=== PATIENT | female | born 1955 | race Caucasian/White ===

== ENCOUNTER 2019-03-28 10:39 | Emergency (ER) | payer OTHER ==
--- NOTE | 2019-03-28 11:49 | ER ---
Nurse's Notes [facility] Name: Queenie He Age: 63 yrs Sex: Female : 1955 Arrival Date: 03/28/2019 Time: 10:42 Bed 17 Private MD: Diagnosis: Metatarsalgia, left foot;Fracture of metatarsal bone(s)-2nd-4th Presentation: 03/28 10:49 Presenting complaint: Sent by [facility] for fracture of 2-4th left toes. Pt report fall hb in shower 3 days ago. Transition of care: patient was not received from another setting of care. Onset of symptoms was March 26, 2019. Risk Assessment: Do you want to hurt yourself or someone else? Patient reports no desire to harm self or others. Initial Sepsis Screen: Does the patient meet any 2 criteria? No. Patient's initial sepsis screen is negative. Does the patient have a suspected source of infection? No. Patient's initial sepsis screen is negative. Care prior to arrival: None. 10:49 Method Of Arrival: Ambulatory hb 10:49 Acuity: OLIVER 4 hb Historical: - Allergies: 10:52 Paxil; hb 10:52 Golytely; hb - Immunization history:: Adult Immunizations up to date. - Social history:: Smoking status: Patient uses tobacco products, smokes one pack cigarettes per day. - Ebola Screening: : No symptoms or risks identified at this time. Screenin:30 Abuse screen: Denies threats or abuse. Nutritional screening: No deficits noted. em Tuberculosis screening: No symptoms or risk factors identified. Fall Risk None identified. Assessment: 11:30 General: Appears in no apparent distress. distressed, Behavior is calm, cooperative. em Pain: Complains of pain in left foot and left fourth toe and left third toe and left second toe Pain currently is 10 out of 10 on a pain scale. Pain began 2-3 days ago. Neuro: Level of Consciousness is awake, alert, obeys commands, Oriented to person, place, time, situation. Cardiovascular: Capillary refill < 3 seconds fingers toes Patient's skin is warm and dry. Respiratory: Airway is patent Respiratory effort is even, unlabored, Respiratory pattern is regular, symmetrical. Derm: Bruising that is dark purple, on left fourth toe and left third toe and left second toe. Musculoskeletal: Swelling absent Reports confirmed fractures on left 2nd, 3rd, 4th toe. 11:30 Reassessment: I agree with assessment completed by Irvin Brooks LVN . aa5 Vital Signs: 10:50 BP 99 / 62; Pulse 102; Resp 16; Temp 97.5; Pulse Ox 99% on R/A; Weight 43.54 kg; Height hb 5 ft. 1 in. (154.94 cm); Pain 10/10; 12:10 BP 106 / 71; Pulse 88; Resp 18; Pulse Ox 99% on R/A; em 10:50 Body Mass Index 18.14 (43.54 kg, 154.94 cm) hb ED Course: 10:42 Patient arrived in ED. as 10:47 Stephani Valdovinos FNP-C [facility]. snw 10:47 Kendall Hardy MD is Attending Physician. snw 10:50 Triage completed. hb 10:50 Arm band placed on. hb 10:53 Irvin Brooks LVN is Primary Nurse. em 11:30 Patient has correct armband on for positive identification. Bed in low position. Call em light in reach. 12:05 Orthoglass splint: Posterior short lleg splint applied on left leg. em 12:13 No provider procedures requiring assistance completed. Patient did not have IV access em during this emergency room visit. Administered Medications: 12:07 Drug: [place] (7.5 mg-325 mg) 1 tabs Route: PO; em 12:30 Follow up: Response: No adverse reaction em Outcome: 11:48 Discharge ordered by MD. snw 12:29 Discharged to home ambulatory. em 12:29 Condition: good 12:29 Discharge instructions given to patient, Instructed on discharge instructions, follow up and referral plans. Demonstrated understanding of instructions, follow-up care, splint care. 12:32 Patient left the ED. em Signatures: Stephani Valdovinos FNP-C TITLE ONE READING TEACHER-Csnw Irvin Brooks LVN LVN em Caryl Luu Audri, RN RN aa5 Gilma Garcia RN RN hb
--- NOTE | 2019-03-28 11:49 | EDPHYS ---
Physician Documentation [facility] Name: Queenie He Age: 63 yrs Sex: Female : 1955 Arrival Date: 03/28/2019 Time: 10:42 Bed 17 Private MD: ED Physician Kendall Hardy HPI: 03/28 12:04 This 63 yrs old Female presents to ER via Ambulatory with complaints of Toe snw Injury. 12:05 The patient presents with decreased range of motion, pain, swelling, tenderness. The snw complaints affect the left foot. Context: The problem was sustained at home, resulted from the patient falling, from a standing position, the patient can partially bear weight, the patient is able to ambulate. Onset: The symptoms/episode began/occurred suddenly, 2 day(s) ago, and became persistent. Associated signs and symptoms: Pertinent positives: swelling. Severity of symptoms: At their worst the symptoms were moderate, severe. It is unknown whether or not the patient has had similar symptoms in the past. The patient has been recently seen by a physician: the patient's primary care provider, in [place], with similar presenting complaints, sent to ED for splint. Historical: - Allergies: 10:52 Paxil; hb 10:52 Golytely; hb - Immunization history:: Adult Immunizations up to date. - Social history:: Smoking status: Patient uses tobacco products, smokes one pack cigarettes per day. - Ebola Screening: : No symptoms or risks identified at this time. ROS: 12:01 Constitutional: Negative for fever, chills, and weight loss, Eyes: Negative for injury, snw pain, redness, and discharge, ENT: Negative for injury, pain, and discharge, Neck: Negative for injury, pain, and swelling, Cardiovascular: Negative for chest pain, palpitations, and edema, Respiratory: Negative for shortness of breath, cough, wheezing, and pleuritic chest pain, Abdomen/GI: Negative for abdominal pain, nausea, vomiting, diarrhea, and constipation, Back: Negative for injury and pain, : Negative for injury, bleeding, discharge, and swelling, Skin: Negative for injury, rash, and discoloration, Neuro: Negative for headache, weakness, numbness, tingling, and seizure, Psych: Negative for depression, anxiety, suicide ideation, homicidal ideation, and hallucinations. 12:01 MS/extremity: Positive for injury or acute deformity, decreased range of motion, pain, swelling, tenderness, of the ball of left foot, dorsum of left foot, left second toe, left third toe and left fourth toe. Exam: 12:01 Head/Face: Normocephalic, atraumatic. snw 12:01 ENT: Nares patent. No nasal discharge, no septal abnormalities noted. Tympanic membranes are normal and external auditory canals are clear. Oropharynx with no redness, swelling, or masses, exudates, or evidence of obstruction, uvula midline. Mucous membranes moist. Neck: Trachea midline, no thyromegaly or masses palpated, and no cervical lymphadenopathy. Supple, full range of motion without nuchal rigidity, or vertebral point tenderness. No Meningismus. Chest/axilla: Normal chest wall appearance and motion. Nontender with no deformity. No lesions are appreciated. Cardiovascular: Regular rate and rhythm with a normal S1 and S2. No gallops, murmurs, or rubs. Normal PMI, no JVD. No pulse deficits. Respiratory: Lungs have equal breath sounds bilaterally, clear to auscultation and percussion. No rales, rhonchi or wheezes noted. No increased work of breathing, no retractions or nasal flaring. Abdomen/GI: Soft, non-tender, with normal bowel sounds. No distension or tympany. No guarding or rebound. No evidence of tenderness throughout. Back: No spinal tenderness. No costovertebral tenderness. Full range of motion. Skin: Warm, dry with normal turgor. Normal color with no rashes, no lesions, and no evidence of cellulitis. MS/ Extremity: Pulses equal, no cyanosis. Neurovascular intact. Full, normal range of motion. left foot with ecchymosis to plantar surface, mild edema, tenderness Neuro: Awake and alert, GCS 15, oriented to person, place, time, and situation. Cranial nerves II-XII grossly intact. Motor strength 5/5 in all extremities. Sensory grossly intact. Cerebellar exam normal. Normal gait. Psych: Awake, alert, with orientation to person, place and time. Behavior, mood, and affect are within normal limits. 12:01 Constitutional: The patient appears alert, awake, thin 12:01 Eyes: Periorbital structures: swelling, that is mild, bilaterally. Vital Signs: 10:50 BP 99 / 62; Pulse 102; Resp 16; Temp 97.5; Pulse Ox 99% on R/A; Weight 43.54 kg; Height hb 5 ft. 1 in. (154.94 cm); Pain 10/10; 12:10 BP 106 / 71; Pulse 88; Resp 18; Pulse Ox 99% on R/A; em 10:50 Body Mass Index 18.14 (43.54 kg, 154.94 cm) hb MDM: 11:05 Patient medically screened. snw 11:59 Data reviewed: vital signs, nurses notes. Data interpreted: Pulse oximetry: on room air snw is 99 %. Interpretation: normal. Counseling: I had a detailed discussion with the patient and/or guardian regarding: the historical points, exam findings, and any diagnostic results supporting the discharge/admit diagnosis, the need for outpatient follow up, to return to the emergency department if symptoms worsen or persist or if there are any questions or concerns that arise at home. ED course: Pt sent from [place] for splint, Not re-imaged. Discussed type of fracture with patient, risk for Lis Franc injury. Needs podiatry/ortho follow up. 03/28 11:46 Order name: Posterior Leg Splint; Complete Time: 12:12 snw Administered Medications: 12:07 Drug: [place] (7.5 mg-325 mg) 1 tabs Route: PO; em 12:30 Follow up: Response: No adverse reaction em Disposition: 03/28/19 11:48 Discharged to Home. Impression: Metatarsalgia, left foot, Fracture of metatarsal bone(s) - 2nd-4th. - Condition is Stable. - Discharge Instructions: Cast or Splint Care, Adult, Metatarsal Fracture, Musculoskeletal Pain, RICE for Routine Care of Injuries, Toe Fracture. - Medication Reconciliation Form, Thank You Letter, Antibiotic Education, Prescription Opioid Use form. - Follow up: Private Physician; When: 1 - 2 days; Reason: Recheck today's complaints, Continuance of care, Re-evaluation by your physician. Follow up: Emergency Department; When: As needed; Reason: Recheck today's complaints, Continuance of care, Re-evaluation by your physician. - Notes: No weight bearing Addendum: 03/31/2019 09:12 Co-signature as Attending Physician, Kendall Hardy MD I agree with the assessment and k dr plan of care. Signatures: Kendall Hardy MD MD [facility] Stephani Valdovinos, MOTEL MAID-C MOTEL MAID-Csnw Irvin Brooks, SENIOR STATISTICIAN SENIOR STATISTICIAN em Gilma Garcia, RN RN Corrections: (The following items were deleted from the chart) 03/28 12:32 11:48 03/28/2019 11:48 Discharged to Home. Impression: Metatarsalgia, left foot; em Fracture of metatarsal bone(s) - 2nd-4th. Condition is Stable. Forms are Medication Reconciliation Form, Thank You Letter, Antibiotic Education, Prescription Opioid Use. Follow up: Private Physician; When: 1 - 2 days; Reason: Recheck today's complaints, Continuance of care, Re-evaluation by your physician. Follow up: Emergency Department; When: As needed; Reason: Recheck today's complaints, Continuance of care, Re-evaluation by your physician. snw
[2019-03-28] MEDS ORDERED: HYDROCODONE/APAP 7.5/325 MG TAB ONE (11:58)
== END 2019-03-28 12:32 | disposition home or self-care (01) ==
LOC: ER 10:39
PROC: 2W3RX1Z Immobilization of Left Lower Leg using Splint (ICD-10-PCS; principal; 2019-03-28)
DX: S92.322A Displaced fracture of second metatarsal bone, left foot, initial encounter for closed fracture (principal); S92.332A Displaced fracture of third metatarsal bone, left foot, initial encounter for closed fracture; S92.342A Displaced fracture of fourth metatarsal bone, left foot, initial encounter for closed fracture; W18.30XA Fall on same level, unspecified, initial encounter; Y92.009 Unspecified place in unspecified non-institutional (private) residence as the place of occurrence of the external cause; M77.42 Metatarsalgia, left foot; Z88.8 Allergy status to other drugs, medicaments and biological substances; F17.210 Nicotine dependence, cigarettes, uncomplicated
CPT/HCPCS: 99283

== ENCOUNTER 2019-08-31 19:31 | Inpatient (IN) | payer OTHER, SELFPAY ==
[2019-08-31] MEDS ORDERED: MORPHINE 4 MG/ML SYR ONE (19:49)
[2019-08-31] MEDS ORDERED: ONDANSETRON 4 MG/2 ML VIAL ONE (19:49)
[2019-08-31] MEDS ORDERED: NA CHLORIDE 0.9% 1,000 ML ONE (21:07)
[2019-08-31] MEDS ORDERED: NA CHLORIDE 0.9% 500 ML ONE (21:07)
[2019-08-31] MEDS ORDERED: THIAMINE 200 MG/2 ML INJ ONE (21:07)
[2019-08-31] MEDS ORDERED: FOLIC ACID 5 MG/ML VIAL ONE (21:08)
[2019-08-31] MEDS ORDERED: MULTIVITAMINS 10 ML VIAL (INJ) IV ONE (21:08)
--- NOTE | 2019-08-31 21:25 | RAD REPORT ---
EXAM DESCRIPTION: RAD - Pelvis - 08/31/2019 9:09 pm CLINICAL HISTORY: left hip pain COMPARISON: None FINDINGS: AP pelvis, left hip and left femur- multiple projections are submitted Intratrochanteric fracture is present involving the proximal left femur. No dislocation seen.
--- NOTE | 2019-08-31 21:29 | RAD REPORT ---
EXAM DESCRIPTION: RAD - Chest Single View - 08/31/2019 9:22 pm CLINICAL HISTORY: TRAUMA Chest pain. COMPARISON: No comparisons FINDINGS: Portable technique limits examination quality. The lungs are grossly clear. The heart is normal in size. Nondisplaced left posterior sixth and seven th rib fractures suspected.Left seventh rib anterolateral rib fracture also probably present. IMPRESSION: Minimally displaced left-sided rib fracture suspected.
[2019-08-31] MEDS ORDERED: ACETAMINOPHEN 500 MG TAB PO PRN (21:35)
[2019-08-31] MEDS ORDERED: ONDANSETRON 4 MG/2 ML VIAL IV PRN (21:35)
[2019-08-31 21:39] LABS: Absolute Lymphocytes (CBC) 2.4 K/uL (0.7-4.9); Basophils % 0.8 % (0-1.3); Hematocrit 38.3 % (36.0-45.0); Lymphocytes % 24.2 % (15.3-44.8); MPV 6.8 fL (7.6-11.3)
[2019-08-31 21:44] LABS: Protime INR 0.99
--- NOTE | 2019-08-31 21:49 | EDPHYS ---
Physician Documentation [facility] Name: Queenie He Age: 64 yrs Sex: Female : 1955 Arrival Date: 08/31/2019 Time: 19:32 Bed 25 Private MD: ED Physician Lenard Rodriguez HPI: 08/31 19:50 This 64 yrs old Female presents to ER via EMS with complaints of Facial cp Injury, Hip Injury. Historical: - Allergies: 19:45 Golytely; mg2 19:45 Paxil; mg2 - Home Meds: 19:45 BuSpar Oral [Active]; mg2 - Immunization history: Last tetanus immunization: unknown. - Social history:: Smoking status: Patient uses tobacco products, Patient uses alcohol, street drugs, IV drugs. - Ebola Screening: : No symptoms or risks identified at this time. ROS: 20:00 Constitutional: Negative for body aches, chills, fever, poor PO intake. cp 20:00 Eyes: Negative for injury, pain, redness, and discharge. cp 20:00 ENT: Negative for drainage from ear(s), ear pain, sore throat, difficulty swallowing, difficulty handling secretions. 20:00 Neck: Negative for pain with movement, pain at rest, stiffness. 20:00 Cardiovascular: Negative for chest pain, edema, palpitations. 20:00 Respiratory: Negative for cough, shortness of breath, wheezing. 20:00 Abdomen/GI: Negative for abdominal pain, vomiting, diarrhea, constipation. 20:00 Back: Negative for pain at rest, pain with movement, radiated pain. 20:00 MS/extremity: Positive for injury or acute deformity, decreased range of motion, pain, tenderness, of the left hip, Negative for paresthesias. 20:00 Neuro: Negative for altered mental status, headache, loss of consciousness, syncope. 20:00 All other systems are negative. Exam: 20:05 Constitutional: The patient appears in no acute distress, alert, awake, cp non-diaphoretic, non-toxic, well developed, well nourished. 20:05 Head/Face: Normocephalic, atraumatic. cp 20:05 Eyes: Periorbital structures: appear normal, Pupils: equal, round, and reactive to light and accomodation, Extraocular movements: intact throughout, Conjunctiva: normal, no exudate, no injection, Sclera: no appreciated abnormality, Lids and lashes: appear normal, bilaterally. 20:05 ENT: External ear(s): are unremarkable, Nose: is normal, Mouth: Lips: moist, Oral mucosa: pink and intact, moist, Posterior pharynx: is normal, airway is patent, no erythema, no exudate. 20:05 Neck: C-spine: vertebral tenderness, is not appreciated, crepitus, is not appreciated, ROM/movement: is normal, is supple, without pain, no range of motions limitations, no nuchal rigidity. 20:05 Chest/axilla: Inspection: normal, Palpation: is normal, no crepitus, no tenderness. 20:05 Cardiovascular: Rate: normal, Rhythm: regular, Edema: is not appreciated, JVD: is not appreciated. 20:05 Respiratory: the patient does not display signs of respiratory distress, Respirations: normal, no use of accessory muscles, no retractions, no splinting, no tachypnea, labored breathing, is not present, Breath sounds: are clear throughout, no decreased breath sounds, no stridor, no wheezing. 20:05 Abdomen/GI: Inspection: abdomen appears normal, Bowel sounds: active, all quadrants, Palpation: abdomen is soft and non-tender, in all quadrants, rebound tenderness, is not appreciated, voluntary guarding, is not appreciated, involuntary guarding, is not appreciated. 20:05 Back: pain, is absent, vertebral tenderness, is not appreciated. 20:05 Musculoskeletal/extremity: Pulses: noted to be 2+ in the right radial artery, right dorsalis pedis artery, left radial artery and left dorsalis pedis artery, Sensation intact. Joints: All joints are normal except the left hip displays limited range of motion, pain at rest, painful range of motion, tenderness. 20:05 Skin: no rash present. 20:05 Neuro: Orientation: to person, place \T\ time. Mentation: is normal. 21:17 ECG was reviewed by the Attending Physician. cp Vital Signs: 19:34 BP 155 / 82; Pulse 94; Resp 20; Temp 98.3(O); Pulse Ox 100% ; lt1 19:57 Weight 45.36 kg; Height 5 ft. 2 in. (157.48 cm); Pain 10/10; mg2 21:00 BP 145 / 78; Pulse 80; Resp 18; Temp 98; Pulse Ox 98% on R/A; mg2 21:54 BP 142 / 80; Pulse 96; Resp 18; Temp 98.1; Pulse Ox 95% on R/A; mg2 19:57 Body Mass Index 18.29 (45.36 kg, 157.48 cm) mg2 Lavern Coma Score: 19:57 Eye Response: spontaneous(4). Verbal Response: oriented(5). Motor Response: obeys mg2 commands(6). Total: 15. Trauma Score (Adult): 19:57 Eye Response: spontaneous(1); Verbal Response: oriented(1); Motor Response: obeys mg2 commands(2); Systolic BP: > 89 mm Hg(4); Respiratory Rate: 10 to 29 per min(4); [place] Score: 15; Trauma Score: 12 21:00 Eye Response: spontaneous(1); Verbal Response: oriented(1); Motor Response: obeys mg2 commands(2); Systolic BP: > 89 mm Hg(4); Respiratory Rate: 10 to 29 per min(4); Lavern Score: 15; Trauma Score: 12 21:54 Eye Response: spontaneous(1); Verbal Response: oriented(1); Motor Response: obeys mg2 commands(2); Systolic BP: > 89 mm Hg(4); Respiratory Rate: 10 to 29 per min(4); [place] Score: 15; Trauma Score: 12 MDM: 19:36 Patient medically screened. omar 20:00 Differential diagnosis: closed head injury, contusion, fracture, multiple trauma. 21:39 Physician consultation: Danis Mcelroy MD was called at 21:35, was contacted at 21:35, cp regarding admission, to the telemetry unit. patient's condition. ED course: VSS. Pain improved. Discussed results of xrays left hip showing femoral neck fracture and need for orthopedic evaluation and hip repair. [facility] stay at [facility] for continued medical care for left hip fracture. 21:40 Data reviewed: vital signs, nurses notes, lab test result(s), EKG, radiologic studies, cp plain films. 21:40 Test interpretation: by ED physician or midlevel provider: plain radiologic studies, cp xrays of left hip: femoral neck fracture. Counseling: I had a detailed discussion with the patient and/or guardian regarding: the historical points, exam findings, and any diagnostic results supporting the discharge/admit diagnosis, lab results, radiology results, the need for further work-up and treatment in the hospital. Response to treatment: the patient's symptoms have markedly improved after treatment. 08/31 20:34 Order name: Basic Metabolic Panel; Complete Time: 15:21 cp 08/31 20:34 Order name: CBC with Diff; Complete Time: 15:21 cp 08/31 20:34 Order name: LFT's; Complete Time: 15:21 cp 08/31 20:34 Order name: Magnesium; Complete Time: 15:21 cp 08/31 20:34 Order name: NT PRO-BNP; Complete Time: 15:21 cp 08/31 20:34 Order name: PT-INR; Complete Time: 15:21 cp 08/31 20:34 Order name: Troponin (emerg Dept Use Only); Complete Time: 15:21 cp 08/31 20:34 Order name: ETOH Level; Complete Time: 15:21 cp 08/31 21:45 Order name: Basic Metabolic Panel EDMS 08/31 21:45 Order name: Basic Metabolic Panel; Complete Time: 15:21 EDMS 08/31 21:45 Order name: CBC with Automated Diff EDMS 08/31 21:45 Order name: CBC with Automated Diff; Complete Time: 15:21 EDMS 08/31 21:45 Order name: Magnesium EDMS 08/31 21:45 Order name: Magnesium; Complete Time: 15:21 EDMS 08/31 19:44 Order name: XRAY Hip LEFT 2 view; Complete Time: 15:21 cp 08/31 19:44 Order name: XRAY Pelvis; Complete Time: 21:34 cp 08/31 19:44 Order name: IV; Complete Time: 19:56 cp 08/31 19:44 Order name: XRAY Femur LEFT; Complete Time: 15:21 cp 08/31 20:27 Order name: Chest Single View XRAY; Complete Time: 15:21 mt 08/31 20:34 Order name: EKG; Complete Time: 20:36 cp 08/31 20:34 Order name: Cardiac monitoring; Complete Time: 21:38 cp 08/31 20:34 Order name: EKG - Nurse/Tech; Complete Time: 21:38 cp 08/31 21:45 Order name: NPO EDMS 08/31 21:45 Order name: Phosphorus EDMS 08/31 21:45 Order name: Phosphorus; Complete Time: 15:21 EDMS 08/31 22:11 Order name: Urine Dipstick--Ancillary (enter results) mt 08/31 20:34 Order name: IV Saline Lock cp 08/31 20:34 Order name: Labs collected and sent; Complete Time: 21:53 cp 08/31 20:34 Order name: O2 Per Protocol; Complete Time: 21:53 cp 08/31 20:34 Order name: O2 Sat Monitoring; Complete Time: 21:53 cp 08/31 21:01 Order name: Silveira; Complete Time: 21:33 cp 08/31 21:01 Order name: Urine Dipstick-Ancillary (obtain specimen); Complete Time: 21:33 cp EC:17 Rate is 93 beats/min. Rhythm is regular. DC interval is normal. QRS interval is normal. cp QT interval is normal. T waves are Inverted in lead V2. Interpreted by me. Reviewed by me. Administered Medications: 19:56 Drug: morphine 2 mg Route: IVP; Site: left antecubital; mg2 20:30 Follow up: Response: No adverse reaction; Marked relief of symptoms mg2 19:57 Drug: Zofran 4 mg Route: IVP; Site: left antecubital; mg2 20:30 Follow up: Response: No adverse reaction; Marked relief of symptoms mg2 21:33 Drug: NS 0.9% 500 ml Route: IV; Rate: 500 ml/hr; Site: left antecubital; mg2 22:19 Follow up: Response: No adverse reaction; IV Status: Completed infusion; IV Intake: mg2 500ml 21:34 Drug: Banana Bag - (NS 0.9% 1000 ml, foLIC Acid 1 mg, Thiamine 100 mg, Multivitamin 1 mg2 amp) Route: IV; Rate: 100 calculated rate; Site: right antecubital; 22:19 Follow up: Response: No adverse reaction; IV Status: Infusion continued upon admission mg2 21:53 Drug: morphine 2 mg Route: IVP; Site: right antecubital; mg2 Disposition: 09/01 09:42 Co-signature as Attending Physician, Lenard Rodriguez MD I agree with the assessment and omar plan of care. Disposition: 08/31/19 21:47 Hospitalization ordered by Mcelroy, Mohammad for Inpatient Admission. Preliminary diagnosis are Fracture of unspecified part of neck of left femur, Fall on same level from slipping, tripping and stumbling. - Bed requested for Telemetry/MedSurg (observation). - Status is Inpatient Admission. mg2 - Condition is Stable. - Problem is new. - Symptoms have improved. UTI on Admission? No Signatures: Dispatcher [employer] EDMS Daily Tilley RN RN mw Anderson, Corey, MD MD cha Page, Corey, PA PA cp Gardose, Michele, RN RN mg2 Corrections: (The following items were deleted from the chart) 08/31 21:48 21:47 Hospitalization Ordered by Danis Mcelroy MD for Inpatient Admission. Preliminary diagnosis is Fracture of unspecified part of neck of left femur; Fall on same level from slipping, tripping and stumbling. Bed requested for Telemetry/MedSurg (observation). Status is Inpatient Admission. Condition is Stable. Problem is new. Symptoms have improved. UTI on Admission? No. cp 22:20 21:48 08/31/2019 21:47 Hospitalization Ordered by Danis Mcelroy MD for Inpatient mg2 Admission. Preliminary diagnosis is Fracture of unspecified part of neck of left femur; Fall on same level from slipping, tripping and stumbling. Bed requested for Telemetry/MedSurg (observation). Status is Inpatient Admission. Condition is Stable. Problem is new. Symptoms have improved. UTI on Admission? No. mw
--- NOTE | 2019-08-31 21:49 | ER ---
Nurse's Notes [facility] Name: Queenie He Age: 64 yrs Sex: Female : 1955 Arrival Date: 08/31/2019 Time: 19:32 Bed 25 Private MD: Diagnosis: Fracture of unspecified part of neck of left femur;Fall on same level from slipping, tripping and stumbling Presentation: 08/31 19:30 Presenting complaint: EMS states: around 1907H, she was in her bed when the bed moved mg2 and she fell on left hip,. denies LOC or head trauma. she said she has been drinking the whole day. BGL-127 mg/dl. Care prior to arrival: None. Mechanism of Injury: Fall from standing position. Trauma event details: Injury occurred in the [facility], Injury occurred: at home. Injury occurred at: 19:07. 19:30 Acuity: OLIVER 2 mg2 19:30 Method Of Arrival: [place] [facility] [place] Transition of care: patient was not received from another setting of care. Onset of mg2 symptoms was August 31, 2019 at 19:07. Risk Assessment: Do you want to hurt yourself or someone else? Patient reports no desire to harm self or others. Initial Sepsis Screen: Does the patient meet any 2 criteria? No. Patient's initial sepsis screen is negative. Does the patient have a suspected source of infection? No. Patient's initial sepsis screen is negative. Trauma Activation: Alert Physician: ED Physician; Name: ; Notified At: ; Arrived At: Physician: General Surgeon; Name: ; Notified At: ; Arrived At: Physician: Radiology; Name: ; Notified At: ; Arrived At: Physician: Respiratory; Name: ; Notified At: ; Arrived At: Physician: Lab; Name: ; Notified At: ; Arrived At: Historical: - Allergies: 19:45 Golytely; mg2 19:45 Paxil; mg2 - Home Meds: 19:45 BuSpar Oral [Active]; mg2 - Immunization history: Last tetanus immunization: unknown. - Social history:: Smoking status: Patient uses tobacco products, Patient uses alcohol, street drugs, IV drugs. - Ebola Screening: : No symptoms or risks identified at this time. Screenin:45 Abuse screen: Denies threats or abuse. Denies injuries from another. Nutritional mg2 screening: No deficits noted. Tuberculosis screening: No symptoms or risk factors identified. Fall risk At risk due to injury, age, immobility, prior history of falls. 20:10 Fall Risk Fall in past 12 months (25 points). IV access (20 points). mg2 Primary Survey: 20:06 NO uncontrolled hemorrhage observed. A: The patient is alert. Airway: patent. mg2 Breathing/Chest: Respiratory pattern: regular, Respiratory effort: spontaneous, unlabored. Circulation: Skin color: pink. Disability Alert. Exposure/Environment: All clothing and personal items were removed. Forensic evidence collection is not deemed to be indicated at this time. Items placed in patient belonging bag. There is no evidence of uncontrolled external bleeding. Obvious injury(ies) are noted at this time: left hip pain/injury/fracture?. 21:53 Reassessment Airway Airway Patent Breathing/Chest Respiratory pattern Regular mg2 Respiratory effort Spontaneous Unlabored Breath sounds Clear Circulation Color [place] Disability Alert. Secondary Survey: 20:07 HEENT: No deficits noted. Gastrointestinal: No deficits noted. : No deficits noted. mg2 Musculoskeletal: Circulation, motion, and sensation intact. Capillary refill < 3 seconds, Reports pain in left hip. Assessment: 19:58 General: Appears in no apparent distress. comfortable, Behavior is calm, cooperative. mg2 Pain: Complains of pain in left hip. Neuro: Level of Consciousness is awake, alert, obeys commands, Oriented to person, place, time, situation. EENT: No signs and/or symptoms were reported regarding the EENT system. Cardiovascular: Capillary refill < 3 seconds Patient's skin is warm and dry. Respiratory: Airway is patent Respiratory effort is even, unlabored, Respiratory pattern is regular, symmetrical. GI: No signs and/or symptoms were reported involving the gastrointestinal system. : No signs and/or symptoms were reported regarding the genitourinary system. Derm: Skin is intact, is healthy with good turgor, Skin is pink, warm \T\ dry. normal. Musculoskeletal: Circulation, motion, and sensation intact. Capillary refill < 3 seconds, Reports pain in left hip. 20:11 Reassessment: patient sent to ct via stretcher. mg2 21:00 Reassessment: Patient appears in no apparent distress at this time. Patient and/or mg2 family updated on plan of care and expected duration. Pain level reassessed. Patient is alert, oriented x 3, equal unlabored respirations, skin warm/dry/pink. 22:00 Reassessment: Patient appears in no apparent distress at this time. Patient and/or mg2 family updated on plan of care and expected duration. Pain level reassessed. Patient is alert, oriented x 3, equal unlabored respirations, skin warm/dry/pink. Vital Signs: 19:34 BP 155 / 82; Pulse 94; Resp 20; Temp 98.3(O); Pulse Ox 100% ; lt1 19:57 Weight 45.36 kg; Height 5 ft. 2 in. (157.48 cm); Pain 10/10; mg2 21:00 BP 145 / 78; Pulse 80; Resp 18; Temp 98; Pulse Ox 98% on R/A; mg2 21:54 BP 142 / 80; Pulse 96; Resp 18; Temp 98.1; Pulse Ox 95% on R/A; mg2 19:57 Body Mass Index 18.29 (45.36 kg, 157.48 cm) mg2 [place] Coma Score: 19:57 Eye Response: spontaneous(4). Verbal Response: oriented(5). Motor Response: obeys mg2 commands(6). Total: 15. Trauma Score (Adult): 19:57 Eye Response: spontaneous(1); Verbal Response: oriented(1); Motor Response: obeys mg2 commands(2); Systolic BP: > 89 mm Hg(4); Respiratory Rate: 10 to 29 per min(4); [place] Score: 15; Trauma Score: 12 21:00 Eye Response: spontaneous(1); Verbal Response: oriented(1); Motor Response: obeys mg2 commands(2); Systolic BP: > 89 mm Hg(4); Respiratory Rate: 10 to 29 per min(4); [place] Score: 15; Trauma Score: 12 21:54 Eye Response: spontaneous(1); Verbal Response: oriented(1); Motor Response: obeys mg2 commands(2); Systolic BP: > 89 mm Hg(4); Respiratory Rate: 10 to 29 per min(4); [place] Score: 15; Trauma Score: 12 ED Course: 19:32 Patient arrived in ED. cf2 19:34 Lenard Villa PA is [facility]. cp 19:34 Lenard Rodriguez MD is Attending Physician. cp 19:36 Gardose, Delgado, RN is Primary Nurse. mg2 19:43 Triage completed. mg2 20:08 Patient has correct armband on for positive identification. Patient maintains SpO2 mg2 saturation greater than 95% on room air. 20:08 No provider procedures requiring assistance completed. Inserted saline lock: 20 gauge mg2 in left antecubital area, using aseptic technique. Blood collected. 20:11 Arm band placed on. mg2 20:11 Thermoregulation: warm blanket given to patient. mg2 21:10 XRAY Hip LEFT 2 view In Process Unspecified. EDMS 21:10 XRAY Pelvis In Process Unspecified. EDMS 21:10 XRAY Femur LEFT In Process Unspecified. EDMS 21:23 Chest Single View XRAY In Process Unspecified. EDMS 21:42 Danis Mcelroy MD is Hospitalizing Provider. cp 21:56 Silveira cath inserted, using sterile technique, 16 Fr., returned clear yellow urine. lt1 Patient tolerated well. 22:20 Patient admitted, IV remains in place. mg2 Administered Medications: 19:56 Drug: morphine 2 mg Route: IVP; Site: left antecubital; mg2 20:30 Follow up: Response: No adverse reaction; Marked relief of symptoms mg2 19:57 Drug: Zofran 4 mg Route: IVP; Site: left antecubital; mg2 20:30 Follow up: Response: No adverse reaction; Marked relief of symptoms mg2 21:33 Drug: NS 0.9% 500 ml Route: IV; Rate: 500 ml/hr; Site: left antecubital; mg2 22:19 Follow up: Response: No adverse reaction; IV Status: Completed infusion; IV Intake: mg2 500ml 21:34 Drug: Banana Bag - (NS 0.9% 1000 ml, foLIC Acid 1 mg, Thiamine 100 mg, Multivitamin 1 mg2 amp) Route: IV; Rate: 100 calculated rate; Site: right antecubital; 22:19 Follow up: Response: No adverse reaction; IV Status: Infusion continued upon admission mg2 21:53 Drug: morphine 2 mg Route: IVP; Site: right antecubital; mg2 Intake: 19:57 PO: 0ml; Total: 0ml. mg2 22:19 IV: 500ml; Total: 500ml. mg2 Output: 22:00 Urine: 1000ml (Silveira); Total: 1000ml. mg2 Outcome: 21:47 Decision to Hospitalize by Provider. cp 22:19 Admitted to Med/surg accompanied by tech, via stretcher, room 221, with chart, Report mg2 called to MORRO Rosa 22:19 Condition: stable 22:19 Patient's length of stay in the Emergency Department was greater than 2 hours. 22:20 Patient left the ED. mg2 Signatures: Dispatcher [employer] EDMS Lenard Villa PA PA cp Gardose, Michele, RN RN mg2 Nicole Hernandez 1 Parvin Prado 2
[2019-08-31] MEDS: NA CHLORIDE 0.9% 1,000 ML IV SCH (22:00)
[2019-08-31 22:08] LABS: ALT/SGPT 87 U/L (12-78); AST/SGOT 78 U/L (15-37); Albumin 3.4 g/dL (3.4-5.0); Alkaline Phosphatase 150 U/L (45-117); BUN Blood Urea Nitrogen 6 mg/dL (7-18); Bicarbonate 24 mmol/L (21-32); Bilirubin Direct 0.1 mg/dL (0-0.2); Bilirubin Total 0.4 mg/dL (0.2-1.0); Glucose Level 73 mg/dL (74-106); Magnesium 1.5 mg/dL (1.8-2.4); NT PRO-BNP 487 pg/mL (<125); Potassium 4.2 mmol/L (3.5-5.1); Protein, Total 6.6 g/dL (6.4-8.2); Sodium Level 128 mmol/L (136-145); Troponin (Emerg Dept Use Only) < 0.02 ng/mL (0.0-0.045)
[2019-08-31 23:07] LABS: Urine Blood NEGATIVE (NEG); Urine Glucose NEGATIVE (NEG); Urine Protein NEGATIVE (NEG)
[2019-08-31 23:22] VITALS: BMI 19.1
[2019-08-31] MEDS: HYDROMORPHONE HCL 1 MG/ML INJ IV PRN (23:24)
[2019-09-01] MEDS ORDERED: CEFAZOLIN SODIUM 1 GM/VIAL ONE (01:30)
[2019-09-01] MEDS ORDERED: NA CHLORIDE 0.9% 100 ML ONE (01:33)
[2019-09-01] MEDS: HYDROMORPHONE HCL 1 MG/ML INJ IV PRN ×6 (03:21→23:06)
[2019-09-01 04:36] LABS: Absolute Lymphocytes (CBC) 3.5 K/uL (0.7-4.9); Basophils % 0.8 % (0-1.3); Hematocrit 34.3 % (36.0-45.0); Lymphocytes % 32.2 % (15.3-44.8)
[2019-09-01 04:56] LABS: BUN Blood Urea Nitrogen 6 mg/dL (7-18); Bicarbonate 28 mmol/L (21-32); Glucose Level 80 mg/dL (74-106); Potassium 4.3 mmol/L (3.5-5.1); Sodium Level 139 mmol/L (136-145)
[2019-09-01 04:58] LABS: Magnesium 1.4 mg/dL (1.8-2.4)
[2019-09-01] MEDS ORDERED: Magnesium Sulfate 2gm IVPB 2 G/50 ML BAG IV ONE (05:00)
[2019-09-01] MEDS: NA CHLORIDE 0.9% 1,000 ML IV SCH ×3 (05:12→18:00)
[2019-09-01] MEDS: CEFAZOLIN/NS 1gm 1 GM/50 ML BAG IVPB SCH ×2 (06:00)
[2019-09-01] MEDS ORDERED: METOPROLOL TARTRATE 5 MG/5 ML INJ IV STA (07:23)
[2019-09-01] MEDS ORDERED: METOPROLOL TARTRATE 5 MG/5 ML INJ IV PRN (07:23)
--- NOTE | 2019-09-01 07:30 | P.HP ---
Certification for Inpatient Patient admitted to: Inpatient With expected LOS: >2 Midnights Patient will require the following post-hospital care: Rehabilitation Practitioner: I am a practitioner with admitting privileges, knowledge of patient current condition, hospital course, and medical plan of care. Services: Services provided to patient in accordance with Admission requirements found in Title 42 Section 412.3 of the Code of Federal Regulations Patient History Date of Service: 08/31/19 Reason for admission: Status post fall with left hip fracture History of Present Illness: Patient is a 64-year-old female came to the hospital after falling. Patient was going back towards her bed and the bed moved. She fell backwards and landed on her left hip. Patient suffered a left hip fracture. Patient was admitted to the hospital for surgical evaluation and repair. Allergies paroxetine [From Paxil] Allergy (Verified 08/31/19 22:42) dizziness polyethylene glycol [From Nulytely] Allergy (Verified 08/31/19 22:42) Hives potassium chloride* [From Nulytely] Allergy (Verified 08/31/19 22:42) Hives sodium bicarbonate [From Nulytely] Allergy (Verified 08/31/19 22:42) Hives sodium chloride [From Nulytely] Allergy (Verified 08/31/19 22:42) Hives Home Medications: Cyclobenzaprine [Flexeril*] 1 tab PO DAILY 09/01/19 Fluoxetine HCl [Prozac*] 1 cap PO DAILY 09/01/19 Furosemide 20 mg PO BID 09/01/19 - Past Medical/Surgical History Has patient received pneumonia vaccine in the past: Yes Diabetic: No -: COPD -: Anxiety -: Hypothyroidism -: nasal surg - Family History Father Medical History: Cancer Mother Medical History: Cancer - Social History Smoking Status: Current every day smoker Alcohol use: Yes CD- Drugs: No Caffeine use: Yes Place of Residence: Home Review of Systems 10-point ROS is otherwise unremarkable Physical Examination - Vital Signs Temperature: 97.8 F Blood Pressure: 166/97 Pulse: 104 Respirations: 20 Pulse Ox (%): 94 - Physical Exam General: Alert, In no apparent distress, Oriented x3 HEENT: Atraumatic, PERRLA, Mucous membr. moist/pink, EOMI, Sclerae nonicteric Neck: Supple, 2+ carotid pulse no bruit, No LAD, Without JVD or thyroid abnormality Respiratory: Clear to auscultation bilaterally, Normal air movement Cardiovascular: Regular rate/rhythm, Normal S1 S2, No murmurs Gastrointestinal: Normal bowel sounds, Soft and benign, Non-distended, No tenderness, No masses, No rebound, No guarding Musculoskeletal: No clubbing, No swelling, No tenderness Integumentary: No rashes Neurological: Normal gait, Normal speech, Normal tone, Sensation intact, Cranial nerves 3-12 intact, Normal affect, Abnormal strength (Strength is not evaluated on the left side) Lymphatics: No axilla or inguinal lymphadenopathy - Studies Laboratory Data (last 24 hrs) 08/31/19 21:30: PT 11.7, INR 0.99 08/31/19 21:30: WBC 9.9, Hgb 12.9, Hct 38.3, Plt Count 243 08/31/19 21:30: Sodium 128 L, Potassium 4.2, BUN 6 L, Creatinine 0.66, Glucose 73 L, Magnesium 1.5 L, Total Bilirubin 0.4, AST 78 H, ALT 87 H, Alkaline Phosphatase 150 H Assessment & Plan - Problems (Diagnosis) (1) Hip fracture, left Current Visit: Yes Status: Acute (2) Hypertension Current Visit: Yes Status: Acute - Plan Plan: 1. Pain control 2. Ortho consultation for surgical repair 3. Physical therapy evaluation 4. DVT prophylaxis 5. Strict blood pressure control 6. Monitor cardiac status and hemodynamics closely in the perioperative period Discharge Plan: Other Plan to discharge in: Greater than 2 days - Advance Directives Does patient have a Living Will: No Does patient have a Durable POA for Healthcare: Yes - Code Status/Comfort Care Code Status Assessed: Yes Code Status: Full Code Critical Care: No Time Spent Managing PTS Care (In Minutes): 40
--- NOTE | 2019-09-01 09:46 | RAD REPORT ---
EXAM DESCRIPTION: RAD - Hip Left 2 View - 08/31/2019 9:09 pm CLINICAL HISTORY: Left hip pain COMPARISON: None FINDINGS: AP pelvis, left hip and left femur- multiple projections are submitted Intratrochanteric fracture is present involving the proximal left femur. No dislocation seen.
--- NOTE | 2019-09-01 09:46 | RAD REPORT ---
EXAM DESCRIPTION: RAD - Femur Left - 08/31/2019 9:09 pm CLINICAL HISTORY: Left hip pain COMPARISON: None FINDINGS: AP pelvis, left hip and left femur- multiple projections are submitted Intratrochanteric fracture is present involving the proximal left femur. No dislocation seen.
[2019-09-01] MEDS: CEFAZOLIN/SWI 1gm 1 GM/10 ML SYR IV SCH ×3 (11:57→23:25)
--- NOTE | 2019-09-01 13:15 | P.PN ---
Subjective Date of Service: 09/01/19 Chief Complaint: Status post fall with left hip fracture Subjective: No new changes, No C/O voiced (Patient is complaining of mild left hip pain. Otherwise in no acute distress), Tolerating diet, Ambulating, Improving, New changes, C/O voiced, NPO, Working w/ PT, Worsening, Doing well, Demented, Other Physical Examination - Vital Signs Temperature: 97.6 F Blood Pressure: 108/65 Pulse: 89 Respirations: 18 Pulse Ox (%): 94 - Physical Exam General: Alert, In no apparent distress (Alert and awake. Comfortable), Oriented x3, Oriented x2, Oriented x1, Cooperative, Cachectic, Disheveled, Demented, Acute distress, Mild distress, Moderate distress, Severe distress, Confused, Delirious, Unresponsive, Comatose, Obese, Other HEENT: Atraumatic (Head atraumatic and normocephalic. Pupils equal and reactive to light. No nystagmus) Respiratory: Clear to auscultation bilaterally (Lungs are clear to auscultation bilaterally. No wheezing or crackles heard.) Cardiovascular: No edema (Normal S1-S2. Regular rate. No murmurs heard) Gastrointestinal: Normal bowel sounds (Bowels sounds are normal. Abdomen soft, nontender and nondistended.) Musculoskeletal: No clubbing (Left hip tender to palpation. Left lower extremity with restricted range of motion.) Integumentary: No rashes (Skin warm and well perfused.) - Studies Laboratory Data (last 24 hrs) 08/31/19 21:30: PT 11.7, INR 0.99 08/31/19 21:30: WBC 9.9, Hgb 12.9, Hct 38.3, Plt Count 243 08/31/19 21:30: Sodium 128 L, Potassium 4.2, BUN 6 L, Creatinine 0.66, Glucose 73 L, Magnesium 1.5 L, Total Bilirubin 0.4, AST 78 H, ALT 87 H, Alkaline Phosphatase 150 H Assessment & Plan Physician Review Additional Text: The patient is a 64-year-old female with a known past medical history of tobacco smoking, polysubstance abuse and excessive alcohol consumption admitted Overnite with a left hip fracture which occur after she fell off her bed. She arrived in the ER hemodynamically stable. Her ETOH was 82. No signs of withdrawal symptoms during our encounter today. Evaluated by Orthopedic surgery this morning with a plan to proceed intermediate urinating he can't abstained. There is a plan to attempt to transfer the patient to the hospital compatible with her insurance plan. 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 Left hip fracture 2. Alcohol abuse and polysubstance abuse. 3. COPD 4. Hypertension 5. Hypomagnesemia Plan: 1. Orthopedic surgery ready to proceed with OR patient's status. Patient to be posted on board for OR tomorrow 2. Cardiology consulted for preop clearance 3. Continue telemetry for vitals since patient is at risk for alcohol withdrawal syndrome. Also continue IV fluid infusion, multivitamin and thiamine. 4. P.r.n. duo nebs placed given history of COPD
--- NOTE | 2019-09-01 14:11 | CON ---
This is a 64-year-old woman. Reason For Consult: Preop clearance before she goes through surgery to repair a left femoral neck fracture. History Of Present Illness: The patient was in her usual state of health. She tried to lay down in bed, pushed it. The bed moved much more than she thought, so she missed the bed and fell and now she has an intertrochanteric fracture of the left femoral neck. She has a history of a right femoral neck fracture repaired in 2013. She has never had myocardial infarction, stroke, or any vascular disease. She had a breast biopsy that was benign. She is allergic to polyethylene glycol, potassium chloride and sodium bicarbonate. Both potassium chloride and sodium bicarbonate are from [employer]. She was a cigarette smoker but has not smoked in quite some time. She is not having chest pain or shortness of breath. Since being here, her EKG is unremarkable. Blood tests show a normal troponin level. Her initial sodium was low but now it is 139. Apparently, the patient was inebriated when she first came in or admitted to having drunk a lot in the past few days anyway. Physical Examination: General: 5 feet 2, 104 pounds. HEENT: Normal. Lungs: Clear. Heart: Exam is within normal limits. Abdomen: Soft. Extremities: Reveal normal pulses. No cyanosis, clubbing, or edema. Impression: The patient is low risk for having femoral neck fracture repair. I do not think we need to engage in a cardiac workup preop. ARIS Voice ID: [id number] Report ID: [id number] JOSIE
[2019-09-01] MEDS: ENOXAPARIN 40 MG/0.4 ML SQ SCH (17:26)
--- NOTE | 2019-09-01 21:00 | CON ---
Date of Consultation: 09/01/2019 History Of Present Illness: This is my first time seeing this patient to my knowledge. She is a 64- year-old female who unfortunately fell last night injuring her left lower extremity. She was seen an d examined in the Emergency Department where she was ruled out for other injuries. However, an x-ray of her pelvis as well as her hip demonstrated a displaced comminuted intertrochanteric femur fractur e on the left. On seeing her today, all her long bones were palpated without pain or crepitation wit h the exception of her left lower extremity. She has no pain at the ankle or knee, but any movement or manipulation of the hip causes significant pain. Assessment: This is a 64-year-old female now with a comminuted displaced intra-articular fracture of the hip. All risks, benefits, and alternatives to operative intervention were discussed with the shila castellano. She states she understands things presented. She has had a her right side previously fixed w ith a similar method and says she understands things as presented. All of her questions were otherwi se answered. I will need to speak with the hospitalist regarding her medical issues. /LIBBY Voice ID: [id number] Report ID: [id number]
[2019-09-02] MEDS: HYDROMORPHONE HCL 1 MG/ML INJ IV PRN ×5 (02:56→20:00)
[2019-09-02] MEDS: NA CHLORIDE 0.9% 1,000 ML IV SCH ×2 (02:58→14:00)
[2019-09-02] MEDS: CEFAZOLIN/SWI 1gm 1 GM/10 ML SYR IV SCH ×4 (06:24→18:00)
[2019-09-02 07:35] LABS: Absolute Lymphocytes (CBC) 1.7 K/uL (0.7-4.9); Basophils % 0.9 % (0-1.3); Hematocrit 33.4 % (36.0-45.0); Lymphocytes % 15.5 % (15.3-44.8); MPV 6.8 fL (7.6-11.3); RBC Red Blood Cell Count 3.47 M/uL (3.86-4.86)
[2019-09-02 07:37] LABS: BUN Blood Urea Nitrogen 3 mg/dL (7-18); Bicarbonate 27 mmol/L (21-32); Glucose Level 64 mg/dL (74-106); Potassium 4.5 mmol/L (3.5-5.1); Sodium Level 137 mmol/L (136-145)
[2019-09-02] MEDS: ENOXAPARIN 40 MG/0.4 ML SQ SCH (09:00)
[2019-09-02] MEDS ORDERED: TRANEXAMIC ACID 1,000 MG in NA CHLORIDE 0.9% 50 ML IV ONE ×4 (16:00)
--- NOTE | 2019-09-02 16:01 | PN ---
Date of Progress Note: 09/02/2019 Ms. He is 64, who was admitted to Dr. Hopkins on 08/31/2019 for COPD, left hip fracture, needed cardiac clearance. She was cleared by Dr. Larsen yesterday. She states she does take nebulizer for her COPD and continues to have some significant wheezing on expiration, but is not symptomatic with i t. She [facility]. We do not think she needs any cardiac workup at this point. She i s cleared to undergo her surgery. She is awaiting surgery by Dr. Downing today. We will continue to follow her. REMIGIO/LIBBY Voice ID: [id number] Report ID: [id number]
--- NOTE | 2019-09-02 16:04 | P.PN ---
Subjective Date of Service: 09/02/19 Chief Complaint: Status post fall with left hip fracture Subjective: No new changes (No acute events Overnite. Patient's pain is controlled. She is NPO pending surgery for left hip fracture) Physical Examination - Vital Signs Temperature: 97.4 F Blood Pressure: 151/66 Pulse: 109 Respirations: 20 Pulse Ox (%): 92 - Physical Exam General: Alert, In no apparent distress HEENT: Atraumatic, Normocephalic, EOMI Respiratory: Clear to auscultation bilaterally, Normal air movement Cardiovascular: No edema, Normal pulses, Regular rate/rhythm, Normal S1 S2 Gastrointestinal: Normal bowel sounds, Soft and benign, Non-distended Musculoskeletal: No swelling, No erythema, No tenderness, Other (Left hip tender to palpation. Nonedematous.) Integumentary: Warmth Neurological: Normal speech, Normal affect Assessment & Plan Physician Review Additional Text: The patient is a 64-year-old female with a known past medical history of tobacco smoking, polysubstance abuse and excessive alcohol consumption admitted overnight with a intra-articular fracture of the left hip fracture which occur after she fell off her bed. She arrived in the ER hemodynamically stable. Her ETOH was 82. No signs of withdrawal symptoms so far. Evaluated by Orthopedic surgery this morning with a plan to proceed with intramedullary nailing. Cleared by cardiology. Impressions: 1. Left hip fracture 2. Alcohol abuse and polysubstance abuse. 3. COPD 4. Hypertension 5. Hypomagnesemia 6. Anxiety Plan: 1. Continue NPO status pending surgery by Orthopedic surgery 2. Continue multi-modal pain regimen 3. Continue telemetry for vitals since patient is at risk for alcohol withdrawal syndrome. Also continue IV fluid infusion, multivitamin and thiamine. 4. P.r.n. duo nebs placed given history of COPD 5. Resume home dose of buspar
--- NOTE | 2019-09-02 16:42 | EKG ---
Test Date: 2018-08-31 Test Time: 21:10:05 Clinical Nurse Leader: MEASUREMENT RESULTS: Intervals: Rate: 93 HI: 128 QRSD: 82 QT: 362 QTc: 450 Wanda: P: 73 HI: 128 QRS: 72 T: 76 INTERPRETIVE STATEMENTS: Normal sinus rhythm Possible Left atrial enlargement Borderline ECG Cardioserver Error - Incorrect date on EKG This EKG was performed on 08-31-2019 No previous ECG available for comparison Electronically Signed On 09-02-19 16:41:06 CONSTRUCTION DRILLER by Senthil Suarez
[2019-09-02] MEDS ORDERED: SUCCINYLCHOLINE 20 MG/ML (10 ML) IV ONE (17:12)
[2019-09-02] MEDS ORDERED: Ringers Lactate 0 ML IV ONE (17:14)
[2019-09-02] MEDS ORDERED: propofoL 200 MG/20 ML VIAL IV ONE (17:16)
[2019-09-02] MEDS ORDERED: FENTANYL CITR 100 MCG/2 ML ONE (17:16)
[2019-09-02] MEDS ORDERED: CEFAZOLIN SODIUM 1 GM/VIAL ONE (17:32)
--- NOTE | 2019-09-02 18:18 | P.BOP ---
Preoperative diagnosis: left proximal femur fracture Postoperative diagnosis: same Primary procedure: DAYNE ej fixation of left proximal femur fx Estimated blood loss: 75 ccs Anesthesia: General Complications: None Transferred to: Recovery Room Condition: Good
[2019-09-02] MEDS: FENTANYL CITR 100 MCG/2 ML ONE ×4 (18:33→18:53)
[2019-09-02] MEDS ORDERED: NA CHLORIDE 0.9% 1,000 ML ONE (18:36)
[2019-09-02] MEDS: MEPERIDINE HCL 50 MG/ML ONE ×2 (18:48→18:58)
[2019-09-02] MEDS ORDERED: MEPERIDINE HCL 25 MG/0.5 ML ONE (19:05)
--- NOTE | 2019-09-02 20:41 | RAD REPORT ---
EXAM DESCRIPTION: RAD - Hip In Or - 09/02/2019 8:31 pm CLINICAL HISTORY: LEFT HIP REPLACEMENT COMPARISON: Pelvis dated 08/31/2019 FINDINGS: Fluoroscopy time 1 minute.
[2019-09-03] MEDS: HYDROMORPHONE HCL 1 MG/ML INJ IV PRN ×2 (00:06→05:45)
[2019-09-03] MEDS: CEFAZOLIN/SWI 1gm 1 GM/10 ML SYR IV SCH ×3 (00:07→12:21)
[2019-09-03] MEDS: HYDROCODONE/APAP 5/325 MG TAB PO PRN ×3 (03:06→18:50)
--- NOTE | 2019-09-03 03:37 | OP ---
Date of Procedure: 09/02/2019 Surgeon: Lewis Downing MD Preoperative Diagnosis: Left proximal femur fracture. Postoperative Diagnosis: Left proximal femur fracture. Procedure: Left proximal femur fracture closed reduction with intramedullary ej fixation. Estimated Blood Loss: 75 mL. Complications: There were no complications. Specimens: No pathology specimens sent. Indication For Operation: Ms. He is a 64-year-old female, who unfortunately has previously brok en her right hip. Now, she has unfortunately fallen injuring her left hip. This was occurred on Sun day night. She was seen and examined in the emergency department at the time of injury where she was found to be without other injury with the exception of her left hip. She was seen by me yesterday a nd examined. Her long bones and joints are palpated without pain or crepitation with exception of an y movement of her left hip. X-rays reviewed reveal a highly comminuted 4-part intertrochanteric femu r fracture on the left. All risks, benefits, and alternatives to different methods of treating this have been discussed with the patient. She says she has had this done on the contralateral side befor e and at this time agrees to proceed. All of her questions were answered. Description Of Procedure: Patient was taken to the operating room and placed in the supine position. General anesthesia was obtained by Anesthesia staff. Following this, she was then transferred over to the fracture table. She was appropriately positioned on the fracture table and C-arm was brought in, which demonstrates a good reduction with the exception of the greater trochanter, which was slig htly displaced and comminuted. However, the femoral neck and shaft appeared to align well. Followin g this, the left lower extremity was then prepped and draped in usual sterile fashion for this proced ure. The C-arm was then brought in, the trochanter was marked out. A vertical incision was made ove r the greater trochanter and this progresses down through fascia. A finger was placed to allow for p alpation of the greater trochanter and the starting awl was then used. A care was taken to make this fairly medial or as medial as possible to avoid lateral displacement of the shaft. The guide pin wa s then placed across the fracture site without difficulty. licensed physical therapist assistant was then used and reamed down to the lesser trochanter. A size 9 x 130 Affixus nail was then placed with simple hand pressure. T his was followed by placement of cephalomedullary screws in the standard fashion using biplanar C-arm radiography to ensure proper placement without protrusion. Following this, the interlocking screw w as then placed distally. The wounds were then irrigated and the fascia was closed using heavy Vicryl sutures, followed by closure of skin with Vicryl sutures and ingrid. Patient was then placed in Aq uacel dressing, awakened and taken to recovery room in good condition. There were no complications. /LIBBY Voice ID: [id number] Report ID: [id number]
[2019-09-03] MEDS: LEVOTHYROXINE SOD 0.112 MG TAB PO SCH (06:38)
[2019-09-03 06:45] LABS: BUN Blood Urea Nitrogen 3 mg/dL (7-18); Bicarbonate 20 mmol/L (21-32); Magnesium 1.5 mg/dL (1.8-2.4); Potassium 4.3 mmol/L (3.5-5.1); Sodium Level 135 mmol/L (136-145)
[2019-09-03 06:54] LABS: Glucose Level 44 mg/dL (74-106)
[2019-09-03] MEDS ORDERED: hydrOXYzine HCL 25 MG TAB PO PRN (07:20)
[2019-09-03] MEDS ORDERED: MELOXICAM 7.5 MG TAB PO PRN (07:20)
[2019-09-03] MEDS ORDERED: DICYCLOMINE HCL 10 MG CAP PO PRN (07:20)
[2019-09-03] MEDS ORDERED: DICLOFENAC SODIUM 50 MG PO PRN (07:20)
[2019-09-03] MEDS: CYCLOBENZAPRINE 10 MG TAB PO SCH (08:58)
[2019-09-03] MEDS ORDERED: NA CHLORIDE 0.9% 250 ML ONE (08:59)
[2019-09-03] MEDS: CYANOCOBALAMIN 1,000 MCG TAB PO SCH (08:59)
[2019-09-03] MEDS: PANTOPRAZOLE 40MG TABLET PO SCH (08:59)
[2019-09-03] MEDS: FUROSEMIDE 20 MG TABLET PO SCH ×2 (08:59→17:07)
[2019-09-03] MEDS: BUSPIRONE HCL 5 MG TABLET PO SCH ×3 (08:59→21:17)
[2019-09-03] MEDS: FOLIC ACID 1 MG TABLET PO SCH (08:59)
[2019-09-03] MEDS: PREGABALIN 75 MG CAP PO SCH ×2 (08:59→21:17)
[2019-09-03] MEDS: RISPERIDONE 1 MG TABLET PO SCH ×2 (09:00→21:17)
[2019-09-03] MEDS: ENOXAPARIN 40 MG/0.4 ML SQ SCH (09:00)
[2019-09-03] MEDS: FLUOXETINE 10 MG CAP PO SCH (09:00)
[2019-09-03] MEDS: SENOSIDES 8.6 MG TAB PO SCH (09:00)
[2019-09-03] MEDS ORDERED: Magnesium Sulfate 2gm IVPB 2 G/50 ML BAG IV ONE (09:00)
[2019-09-03] MEDS ORDERED: HOME MED 1 EA UNK (Omeprazole [Omeprazole] 20 MG) PO SCH (09:00)
[2019-09-03] MEDS: CALCIUM CARB 500MG/VIT D 200 IU TAB PO SCH ×3 (09:48→21:16)
--- NOTE | 2019-09-03 11:35 | P.PN ---
Subjective Date of Service: 09/03/19 Chief Complaint: Status post fall with left hip fracture Subjective: No new changes, Doing well, Other (Postop day 1. Patient is doing well. Her pain is controlled.) Physical Examination - Vital Signs Temperature: 97.6 F Blood Pressure: 141/80 Pulse: 107 Respirations: 17 Pulse Ox (%): 96 - Physical Exam General: Alert, In no apparent distress, Cooperative HEENT: Atraumatic, Normocephalic, EOMI Neck: Supple Respiratory: Clear to auscultation bilaterally, Normal air movement Cardiovascular: No edema, Normal pulses, Regular rate/rhythm, Normal S1 S2 Gastrointestinal: Normal bowel sounds, Soft and benign, Non-distended Musculoskeletal: Other (Left hip mildly tender to palpation. No edema or active bleeding noted. No signs of inflammation. Dressing change clean and dry. ) Integumentary: Warmth Neurological: Normal speech, Normal affect Assessment & Plan Physician Review Additional Text: The patient is a 64-year-old female with a known past medical history of tobacco smoking, polysubstance abuse and excessive alcohol consumption admitted overnight with a intra-articular fracture of the left hip fracture which occur after she fell off her bed. She arrived in the ER hemodynamically stable. Her ETOH was 82. No signs of withdrawal symptoms so far. She underwent DAYNE ej fixation of left proximal femur fx on 09/02/2019 with uneventful post op course. She is pending PT clearance Impressions: 1. Left hip fracture 2. Alcohol abuse and polysubstance abuse. 3. COPD 4. Hypertension 5. Hypomagnesemia 6. Anxiety Plan: 1. Continue multi-modal pain regimen 2. Continue lovenox. DVT ppx for 21 days post op. 3. Continue telemetry for vitals since patient is at risk for alcohol withdrawal syndrome. Also continue IV fluid infusion, multivitamin and thiamine. 4. P.r.n. duo nebs placed given history of COPD 5. Contine home dose of buspar and hydroxyzine Time Spent Managing Pts Care (In Minutes): 25
[2019-09-03] MEDS ORDERED: MAGNESIUM SULFATE 1 gm IVPB 1 GM/100 ML BAG IV ONE (21:00)
[2019-09-03] MEDS: LURASIDONE HCL 30 MG PO SCH (21:00)
[2019-09-03] MEDS: MELATONIN 5 MG TABLET PO SCH (21:17)
[2019-09-04] MEDS: HYDROCODONE/APAP 5/325 MG TAB PO PRN ×5 (00:45→20:54)
--- NOTE | 2019-09-04 02:45 | PN ---
Date of Progress Note: 09/03/2019 History: Ms. He had been seen for cardiac clearance by Dr. Larsen and been followed by myself a s well. She has a history of severe COPD. [facility]. She is on inhalers at home. She co ntinued to have some wheezing, but no evidence of congestive heart failure or coronary artery disease . Denied any chest pain, palpitations, or syncope. She underwent surgery today with a closed left h ip reduction with intramedullary ej fixation. She tolerated the procedure well. Postoperatively, s he is not having any arrhythmia and no evidence of congestive heart failure. She has been followed b y Dr. Downing. We will sign off her case. We will be available for questions if the need arise. REMIGIO/LIBBY Voice ID: [id number] Report ID: [id number]
--- NOTE | 2019-09-04 04:29 | PN ---
Date of Progress Note: 09/03/2019 History: The patient is seen today. She does not have a CBC. She is afebrile. Vital signs are sta ble with slightly high pulse rate of 106. She lists her pain levels between a 5 and 9. Physical Examination: On examination, her heels are nontender. Dorsiflexion and plantar flexion are strong. Her dressing is clean, dry, and intact. She says she has been up with physical therapy without significant proble ms. Assessment And Plan: She is doing well. I will at least check a CBC tomorrow. We advised anticoagu lation for at least 3 weeks unless contraindicated by the hospitalist or PCP. After that, we would p roceed with 3 weeks of 325 mg aspirin. Jose to be removed postop day 10-14. She has no hip preca utions, but should be touchdown weightbearing. All of her questions were answered today. /LIBBY Voice ID: [id number] Report ID: [id number]
[2019-09-04] MEDS ORDERED: MAGNESIUM SULFATE 1 gm IVPB 1 GM/100 ML BAG IV ONE (05:50)
[2019-09-04] MEDS: LEVOTHYROXINE SOD 0.112 MG TAB PO SCH (06:08)
[2019-09-04] MEDS: FUROSEMIDE 20 MG TABLET PO SCH ×2 (09:00→20:54)
[2019-09-04] MEDS: ENOXAPARIN 40 MG/0.4 ML SQ SCH (09:59)
[2019-09-04] MEDS: PREGABALIN 75 MG CAP PO SCH ×2 (10:00→20:53)
[2019-09-04] MEDS: CYCLOBENZAPRINE 10 MG TAB PO SCH (10:00)
[2019-09-04] MEDS: PANTOPRAZOLE 40MG TABLET PO SCH (10:00)
[2019-09-04] MEDS: BUSPIRONE HCL 5 MG TABLET PO SCH ×3 (10:01→20:52)
[2019-09-04] MEDS: FOLIC ACID 1 MG TABLET PO SCH (10:02)
[2019-09-04] MEDS: RISPERIDONE 1 MG TABLET PO SCH ×2 (10:02→20:52)
[2019-09-04] MEDS: FLUOXETINE 10 MG CAP PO SCH (10:02)
[2019-09-04] MEDS: CYANOCOBALAMIN 1,000 MCG TAB PO SCH (10:03)
[2019-09-04] MEDS: SENOSIDES 8.6 MG TAB PO SCH (10:03)
--- NOTE | 2019-09-04 12:55 | P.PN ---
Subjective Date of Service: 09/04/19 Chief Complaint: Status post fall with left hip fracture Subjective: No new changes (No acute events overnight. Patient's pain is controlled with MMP regimen) Physical Examination - Vital Signs Temperature: 97.4 F Blood Pressure: 103/67 Pulse: 102 Respirations: 15 Pulse Ox (%): 98 - Physical Exam General: Alert, In no apparent distress, Cooperative HEENT: Atraumatic, Normocephalic, EOMI Neck: Supple Respiratory: Clear to auscultation bilaterally Cardiovascular: No edema, Normal pulses, Regular rate/rhythm Gastrointestinal: Normal bowel sounds, Soft and benign, Non-distended Musculoskeletal: No swelling, Tenderness, Other (left hip tender to palpation, non-edematous) Neurological: Normal speech, Normal affect Assessment & Plan Physician Review Additional Text: The patient is a 64-year-old female with a known past medical history of tobacco smoking, polysubstance abuse and excessive alcohol consumption admitted overnight with a intra-articular fracture of the left hip fracture which occur after she fell off her bed. She arrived in the ER hemodynamically stable. Her ETOH was 82. No signs of withdrawal symptoms so far. She underwent DAYNE ej fixation of left proximal femur fx on 09/02/2019 with uneventful post op course. She has been cleared to go to SNF Impressions: 1. Left hip fracture 2. Alcohol abuse and polysubstance abuse. 3. COPD 4. Hypertension 5. Hypomagnesemia 6. Anxiety Plan: 1. Continue multi-modal pain regimen 2. Continue lovenox. DVT ppx for 21 days post op. 3. Continue telemetry for vitals since patient is at risk for alcohol withdrawal syndrome. Also continue IV fluid infusion, multivitamin and thiamine. 4. P.r.n. duo nebs placed given history of COPD 5. Continue home dose of buspar and hydroxyzine 6. Social work on board to assist with placement
[2019-09-04] MEDS: CALCIUM CARB 500MG/VIT D 200 IU TAB PO SCH ×3 (14:00→20:54)
[2019-09-04] MEDS: MELATONIN 5 MG TABLET PO SCH (20:51)
[2019-09-04] MEDS: LURASIDONE HCL 30 MG PO SCH (21:00)
--- NOTE | 2019-09-05 01:58 | PN ---
Date of Progress Note: 09/04/2019 I saw the patient today. She is eating comfortably at bedside. Her dressing is clean, dry, and inta ct. She is neurovascularly intact. Her heels are nontender. She does not appear to be in significa nt amount of pain. She says she is tolerating physical therapy well without any symptoms. We discus sed things she needs to know as she is being discharged, which is the ingrid come out day 10 to 14. She should continue on anticoagulation unless there is a contraindication for 3 weeks and then aspir in for 3 weeks after that and also that she should be touchdown weightbearing until 6 weeks with weig htbearing restriction most likely to be discontinued after x-rays at 6 weeks depending on healing. S he says she understands everything as presented and appears to be doing well. She awaits placement. /LIBBY Voice ID: [id number] Report ID: [id number]
[2019-09-05] MEDS: HYDROCODONE/APAP 5/325 MG TAB PO PRN ×4 (03:56→20:24)
[2019-09-05] MEDS: LEVOTHYROXINE SOD 0.112 MG TAB PO SCH (05:45)
[2019-09-05 06:42] LABS: BUN Blood Urea Nitrogen 3 mg/dL (7-18); Bicarbonate 31 mmol/L (21-32); Glucose Level 104 mg/dL (74-106); Magnesium 1.5 mg/dL (1.8-2.4); Sodium Level 138 mmol/L (136-145)
[2019-09-05] MEDS ORDERED: POTASSIUM CL SA 10 MEQ TAB PO ONE (07:35)
[2019-09-05] MEDS: ENOXAPARIN 40 MG/0.4 ML SQ SCH (08:51)
[2019-09-05] MEDS: CYCLOBENZAPRINE 10 MG TAB PO SCH (08:52)
[2019-09-05] MEDS: PREGABALIN 75 MG CAP PO SCH ×2 (08:52→20:23)
[2019-09-05] MEDS: BUSPIRONE HCL 5 MG TABLET PO SCH ×3 (08:52→20:24)
[2019-09-05] MEDS: FOLIC ACID 1 MG TABLET PO SCH (08:53)
[2019-09-05] MEDS: PANTOPRAZOLE 40MG TABLET PO SCH (08:53)
[2019-09-05] MEDS: SENOSIDES 8.6 MG TAB PO SCH (08:54)
[2019-09-05] MEDS: FUROSEMIDE 20 MG TABLET PO SCH ×2 (08:56→17:10)
[2019-09-05] MEDS: RISPERIDONE 1 MG TABLET PO SCH ×2 (08:57→20:23)
[2019-09-05] MEDS: FLUOXETINE 10 MG CAP PO SCH (08:57)
[2019-09-05] MEDS: CYANOCOBALAMIN 1,000 MCG TAB PO SCH (08:58)
[2019-09-05] MEDS ORDERED: Magnesium Sulfate 2gm IVPB 2 G/50 ML BAG IV ONE (09:00)
[2019-09-05] MEDS: CALCIUM CARB 500MG/VIT D 200 IU TAB PO SCH ×3 (09:00→20:22)
[2019-09-05] MEDS ORDERED: BISACODYL E.C. 5 MG TAB PO ONE (09:07)
[2019-09-05] MEDS ORDERED: POTASSIUM CL 40 MEQ in NA CHLORIDE 0.9% 500 ML IV SCH (11:00)
--- NOTE | 2019-09-05 15:21 | P.PN ---
Subjective Date of Service: 09/05/19 Chief Complaint: Status post fall with left hip fracture Subjective: No new changes, Tolerating diet, Improving, Working w/ PT Physical Examination - Vital Signs Temperature: 97.3 F Blood Pressure: 104/61 Pulse: 103 Respirations: 16 Pulse Ox (%): 96 - Physical Exam General: Alert, In no apparent distress, Cooperative HEENT: Atraumatic, Normocephalic, EOMI Neck: Supple Respiratory: Clear to auscultation bilaterally, Normal air movement Cardiovascular: No edema, Normal pulses, Regular rate/rhythm, Normal S1 S2 Gastrointestinal: Normal bowel sounds, Soft and benign, Non-distended Musculoskeletal: No swelling, No erythema, Tenderness Integumentary: Warmth Neurological: Normal speech, Normal affect Assessment & Plan Physician Review Additional Text: The patient is a 64-year-old female with a known past medical history of tobacco smoking, polysubstance abuse and excessive alcohol consumption admitted overnight with a intra-articular fracture of the left hip fracture which occur after she fell off her bed. She arrived in the ER hemodynamically stable. Her ETOH was 82. No signs of withdrawal symptoms so far. She underwent DAYNE ej fixation of left proximal femur fx on 09/02/2019 with uneventful post op course. She has been cleared to go to SNF. She still pending acceptance Impressions: 1. Left hip fracture 2. Alcohol abuse and polysubstance abuse. 3. COPD 4. Hypertension 5. Hypomagnesemia 6. Anxiety 7. Hypokalemia Plan: 1. Continue multi-modal pain regimen 2. Continue lovenox. DVT ppx for 21 days post op, then aspirin for 21 days. Touchdown weight-bearing for 6 weeks 3. Continue telemetry for vitals since patient is at risk for alcohol withdrawal syndrome. Also continue IV fluid infusion, multivitamin and thiamine. 4. P.r.n. duo nebs placed given history of COPD 5. Continue home dose of buspar and hydroxyzine 6. Social work on board to assist with placement 7. Received 80 mEq of potassium chloride IV and PO
[2019-09-05] MEDS: MELATONIN 5 MG TABLET PO SCH (20:23)
[2019-09-05] MEDS: LURASIDONE HCL 30 MG PO SCH (20:25)
[2019-09-06] MEDS: HYDROCODONE/APAP 5/325 MG TAB PO PRN ×4 (04:52→18:38)
[2019-09-06] MEDS: LEVOTHYROXINE SOD 0.112 MG TAB PO SCH (05:37)
[2019-09-06 06:41] LABS: BUN Blood Urea Nitrogen 3 mg/dL (7-18); Bicarbonate 32 mmol/L (21-32); Glucose Level 91 mg/dL (74-106); Potassium 3.6 mmol/L (3.5-5.1); Sodium Level 137 mmol/L (136-145)
[2019-09-06] MEDS: PREGABALIN 75 MG CAP PO SCH ×2 (08:10→20:13)
[2019-09-06] MEDS: BUSPIRONE HCL 5 MG TABLET PO SCH ×3 (08:11→20:13)
[2019-09-06] MEDS: FLUOXETINE 10 MG CAP PO SCH (08:12)
[2019-09-06] MEDS: PANTOPRAZOLE 40MG TABLET PO SCH (08:17)
[2019-09-06] MEDS: CYANOCOBALAMIN 1,000 MCG TAB PO SCH (08:17)
[2019-09-06] MEDS: SENOSIDES 8.6 MG TAB PO SCH (08:17)
[2019-09-06] MEDS: CYCLOBENZAPRINE 10 MG TAB PO SCH (08:18)
[2019-09-06] MEDS: FUROSEMIDE 20 MG TABLET PO SCH ×2 (08:19→16:56)
[2019-09-06] MEDS: FOLIC ACID 1 MG TABLET PO SCH (08:19)
[2019-09-06] MEDS: CALCIUM CARB 500MG/VIT D 200 IU TAB PO SCH ×3 (08:19→20:14)
[2019-09-06] MEDS: ENOXAPARIN 40 MG/0.4 ML SQ SCH (08:20)
[2019-09-06] MEDS: RISPERIDONE 1 MG TABLET PO SCH ×2 (08:20→20:15)
[2019-09-06] MEDS: Magnesium Sulfate 2gm IVPB 2 G/50 ML BAG IV ONE ×2 (08:20→09:00)
[2019-09-06] MEDS ORDERED: POTASSIUM CL SA 10 MEQ TAB PO ONE (09:00)
[2019-09-06] MEDS ORDERED: MAGNESIUM OXIDE 400 MG TAB PO ONE (09:28)
--- NOTE | 2019-09-06 12:54 | P.PN ---
Subjective Date of Service: 09/06/19 Chief Complaint: Status post fall with left hip fracture Subjective: No new changes, No C/O voiced Review of Systems 10-point ROS is otherwise unremarkable Physical Examination - Vital Signs Temperature: 97.1 F Blood Pressure: 131/83 Pulse: 104 Respirations: 18 Pulse Ox (%): 93 - Physical Exam General: Alert, Oriented x3 HEENT: Atraumatic, Normocephalic Neck: Supple, 2+ carotid pulse no bruit Respiratory: Clear to auscultation bilaterally, Normal air movement Gastrointestinal: Normal bowel sounds, Soft and benign Musculoskeletal: No clubbing, No swelling - Studies Laboratory Last Values WBC 10.9 K/uL (4.3-10.9) 09/02/19 07:14 RBC 3.47 M/uL (3.86-4.86) L 09/02/19 07:14 Hgb 11.3 g/dL (12.0-15.0) L 09/02/19 07:14 Hct 33.4 % (36.0-45.0) L 09/02/19 07:14 MCV 96.4 fL (80-100) 09/02/19 07:14 MCH 32.7 pg (27.0-35.0) 09/02/19 07:14 MCHC 33.9 g/dL (32.0-36.0) 09/02/19 07:14 RDW 13.5 % (12.1-15.2) 09/02/19 07:14 Plt Count 234 K/uL (152-406) 09/02/19 07:14 MPV 6.8 fL (7.6-11.3) L 09/02/19 07:14 Neutrophils % 74.2 % (41.7-73.7) H 09/02/19 07:14 Lymphocytes % 15.5 % (15.3-44.8) 09/02/19 07:14 Monocytes % 7.7 % (3.3-12.3) 09/02/19 07:14 Eosinophils % 1.7 % (0-4.4) 09/02/19 07:14 Basophils % 0.9 % (0-1.3) 09/02/19 07:14 Absolute Neutrophils 8.1 K/uL (1.8-8.0) H 09/02/19 07:14 Absolute Lymphocytes 1.7 K/uL (0.7-4.9) 09/02/19 07:14 Absolute Monocytes 0.8 K/uL (0.1-1.3) 09/02/19 07:14 Absolute Eosinophils 0.2 K/uL (0-0.5) 09/02/19 07:14 Absolute Basophils 0.1 K/uL (0-0.5) 09/02/19 07:14 PT 11.7 SECONDS (9.5-12.5) 08/31/19 21:30 INR 0.99 08/31/19 21:30 Sodium 137 mmol/L (136-145) 09/06/19 06:10 Potassium 3.6 mmol/L (3.5-5.1) 09/06/19 06:10 Chloride 101 mmol/L (98-107) 09/06/19 06:10 Carbon Dioxide 32 mmol/L (21-32) 09/06/19 06:10 BUN 3 mg/dL (7-18) L 09/06/19 06:10 Creatinine 0.38 mg/dL (0.55-1.3) L 09/06/19 06:10 Estimated GFR > 90 mL/min (=/>90) 09/06/19 06:10 Glucose 91 mg/dL (74-106) 09/06/19 06:10 POC Glucose 135 mg/dl (65-120) H 09/03/19 11:42 Calcium 8.4 mg/dL (8.5-10.1) L 09/06/19 06:10 Phosphorus 3.0 mg/dL (2.5-4.9) 09/01/19 04:19 Magnesium 1.4 mg/dL (1.8-2.4) L* 09/06/19 06:10 Total Bilirubin 0.4 mg/dL (0.2-1.0) 08/31/19 21:30 Direct Bilirubin 0.1 mg/dL (0-0.2) 08/31/19 21:30 AST 78 U/L (15-37) H 08/31/19 21:30 ALT 87 U/L (12-78) H 08/31/19 21:30 Alkaline Phosphatase 150 U/L (45-117) H 08/31/19 21:30 Rapid Troponin I < 0.02 ng/mL (0.0-0.045) 08/31/19 21:30 NT-Pro-B Natriuret Pep 487 pg/mL (<125) H 08/31/19 21:30 Serum Total Protein 6.6 g/dL (6.4-8.2) 08/31/19 21:30 Albumin 3.4 g/dL (3.4-5.0) 08/31/19 21:30 Globulin 3.2 g/dL (2.3-3.5) 08/31/19 21:30 Albumin/Globulin Ratio 1.1 (1.1-1.8) 08/31/19 21:30 Urine pH 7.0 (5.0-7.0) 08/31/19 22:11 Ur Specific [place] 1.010 (1.005-1.030) 08/31/19 22:11 Urine Ketones Negative (NEG) 08/31/19 22:11 Urine Blood Negative (NEG) 08/31/19 22:11 Urine Nitrite Negative (NEG) 08/31/19 22:11 Ur Leukocyte Esterase Negative (NEG) 08/31/19 22:11 Urine Glucose Negative (NEG) 08/31/19 22:11 Urine Total Protein Negative (NEG) 08/31/19 22:11 Plasma/Serum Alcohol 82 mg/dL (<3) H 08/31/19 21:30 Medications List Reviewed: Yes Assessment & Plan - Problems (Diagnosis) (1) Hip fracture, left Current Visit: Yes Status: Acute (2) Hypertension Current Visit: Yes Status: Acute (3) Hypokalemia Current Visit: Yes Status: Acute (4) Hypomagnesemia Current Visit: Yes Status: Acute Discharge Plan: Intermediate Physician Review: Patient Assessed, Agree with Above Assessment and Plan Physician Review Additional Text: The patient is a 64-year-old female with a known past medical history of tobacco smoking, polysubstance abuse and excessive alcohol consumption admitted overnight with a intra-articular fracture of the left hip fracture which occur after she fell off her bed. She arrived in the ER hemodynamically stable. Her ETOH was 82. No signs of withdrawal symptoms so far. She underwent DAYNE ej fixation of left proximal femur fx on 09/02/2019 with uneventful post op course. She has been cleared to go to SNF. She still pending acceptance Impressions: 1. Left hip fracture- s/p ORIF 09/02/19 2. Alcohol abuse and polysubstance abuse. 3. COPD 4. Hypertension 5. Hypomagnesemia 6. Anxiety 7. Hypokalemia Plan: -still high risk for etoh withdrawal - will replete mag again today -start po mag -c/w pain regime -follow plans for Social work placement
[2019-09-06] MEDS ORDERED: Magnesium Sulfate 2gm IVPB 2 G/50 ML BAG IV ONE (19:00)
[2019-09-06] MEDS: MELATONIN 5 MG TABLET PO SCH (20:13)
[2019-09-06] MEDS: MAGNESIUM OXIDE 400 MG TAB PO SCH (20:14)
[2019-09-06] MEDS: LURASIDONE HCL 30 MG PO SCH (20:23)
[2019-09-07] MEDS: HYDROCODONE/APAP 5/325 MG TAB PO PRN ×5 (00:07→18:31)
[2019-09-07] MEDS: LEVOTHYROXINE SOD 0.112 MG TAB PO SCH (05:51)
[2019-09-07 06:25] LABS: BUN Blood Urea Nitrogen 3 mg/dL (7-18); Bicarbonate 32 mmol/L (21-32); Glucose Level 88 mg/dL (74-106); Magnesium 1.7 mg/dL (1.8-2.4); Potassium 3.2 mmol/L (3.5-5.1); Sodium Level 137 mmol/L (136-145)
[2019-09-07] MEDS ORDERED: POTASSIUM CL SA 10 MEQ TAB PO ONE (09:00)
[2019-09-07] MEDS: CALCIUM CARB 500MG/VIT D 200 IU TAB PO SCH ×3 (09:00→21:10)
[2019-09-07] MEDS: CYANOCOBALAMIN 1,000 MCG TAB PO SCH (09:00)
[2019-09-07] MEDS: SENOSIDES 8.6 MG TAB PO SCH (09:00)
[2019-09-07] MEDS: MAGNESIUM OXIDE 400 MG TAB PO SCH ×2 (09:00→21:11)
[2019-09-07] MEDS ORDERED: MAGNESIUM SULFATE 1 gm IVPB 1 GM/100 ML BAG IV ONE ×2 (09:00→10:14)
[2019-09-07] MEDS: RISPERIDONE 1 MG TABLET PO SCH ×2 (09:00→21:11)
[2019-09-07] MEDS: ENOXAPARIN 40 MG/0.4 ML SQ SCH (09:13)
[2019-09-07] MEDS: FUROSEMIDE 20 MG TABLET PO SCH ×2 (09:15→16:50)
[2019-09-07] MEDS: PREGABALIN 75 MG CAP PO SCH ×2 (09:15→21:09)
[2019-09-07] MEDS: FOLIC ACID 1 MG TABLET PO SCH (09:16)
[2019-09-07] MEDS: CYCLOBENZAPRINE 10 MG TAB PO SCH (09:16)
[2019-09-07] MEDS: PANTOPRAZOLE 40MG TABLET PO SCH (09:16)
[2019-09-07] MEDS: FLUOXETINE 10 MG CAP PO SCH (09:18)
[2019-09-07] MEDS ORDERED: POTASSIUM 25 MEQ EFFERV TAB PO ONE (10:13)
--- NOTE | 2019-09-07 10:13 | P.PN ---
Subjective Date of Service: 09/07/19 Chief Complaint: Status post fall with left hip fracture Subjective: No new changes, C/O voiced (- still uncontrolled pain - wants Mobic to be made scheduled vs prn) Review of Systems 10-point ROS is otherwise unremarkable Physical Examination - Vital Signs Temperature: 97.2 F Blood Pressure: 151/73 Pulse: 91 Respirations: 18 Pulse Ox (%): 96 - Physical Exam General: Alert, Oriented x3, Other (thin built ) HEENT: Atraumatic, Normocephalic Neck: Supple, 2+ carotid pulse no bruit Respiratory: Clear to auscultation bilaterally, Normal air movement Cardiovascular: No edema, Normal pulses Gastrointestinal: Normal bowel sounds, Soft and benign Musculoskeletal: Tenderness (over left hip dsg , clean ) External genitalia: No edema - Studies Laboratory Last Values WBC 10.9 K/uL (4.3-10.9) 09/02/19 07:14 RBC 3.47 M/uL (3.86-4.86) L 09/02/19 07:14 Hgb 11.3 g/dL (12.0-15.0) L 09/02/19 07:14 Hct 33.4 % (36.0-45.0) L 09/02/19 07:14 MCV 96.4 fL (80-100) 09/02/19 07:14 MCH 32.7 pg (27.0-35.0) 09/02/19 07:14 MCHC 33.9 g/dL (32.0-36.0) 09/02/19 07:14 RDW 13.5 % (12.1-15.2) 09/02/19 07:14 Plt Count 234 K/uL (152-406) 09/02/19 07:14 MPV 6.8 fL (7.6-11.3) L 09/02/19 07:14 Neutrophils % 74.2 % (41.7-73.7) H 09/02/19 07:14 Lymphocytes % 15.5 % (15.3-44.8) 09/02/19 07:14 Monocytes % 7.7 % (3.3-12.3) 09/02/19 07:14 Eosinophils % 1.7 % (0-4.4) 09/02/19 07:14 Basophils % 0.9 % (0-1.3) 09/02/19 07:14 Absolute Neutrophils 8.1 K/uL (1.8-8.0) H 09/02/19 07:14 Absolute Lymphocytes 1.7 K/uL (0.7-4.9) 09/02/19 07:14 Absolute Monocytes 0.8 K/uL (0.1-1.3) 09/02/19 07:14 Absolute Eosinophils 0.2 K/uL (0-0.5) 09/02/19 07:14 Absolute Basophils 0.1 K/uL (0-0.5) 09/02/19 07:14 PT 11.7 SECONDS (9.5-12.5) 08/31/19 21:30 INR 0.99 08/31/19 21:30 Sodium 137 mmol/L (136-145) 09/07/19 05:49 Potassium 3.2 mmol/L (3.5-5.1) L 09/07/19 05:49 Chloride 100 mmol/L (98-107) 09/07/19 05:49 Carbon Dioxide 32 mmol/L (21-32) 09/07/19 05:49 BUN 3 mg/dL (7-18) L 09/07/19 05:49 Creatinine 0.23 mg/dL (0.55-1.3) L 09/07/19 05:49 Estimated GFR > 90 mL/min (=/>90) 09/07/19 05:49 Glucose 88 mg/dL (74-106) 09/07/19 05:49 POC Glucose 135 mg/dl (65-120) H 09/03/19 11:42 Calcium 8.4 mg/dL (8.5-10.1) L 09/07/19 05:49 Phosphorus 3.0 mg/dL (2.5-4.9) 09/01/19 04:19 Magnesium 1.7 mg/dL (1.8-2.4) L 09/07/19 05:49 Total Bilirubin 0.4 mg/dL (0.2-1.0) 08/31/19 21:30 Direct Bilirubin 0.1 mg/dL (0-0.2) 08/31/19 21:30 AST 78 U/L (15-37) H 08/31/19 21:30 ALT 87 U/L (12-78) H 08/31/19 21:30 Alkaline Phosphatase 150 U/L (45-117) H 08/31/19 21:30 Rapid Troponin I < 0.02 ng/mL (0.0-0.045) 08/31/19 21:30 NT-Pro-B Natriuret Pep 487 pg/mL (<125) H 08/31/19 21:30 Serum Total Protein 6.6 g/dL (6.4-8.2) 08/31/19 21:30 Albumin 3.4 g/dL (3.4-5.0) 08/31/19 21:30 Globulin 3.2 g/dL (2.3-3.5) 08/31/19 21:30 Albumin/Globulin Ratio 1.1 (1.1-1.8) 08/31/19 21:30 Urine pH 7.0 (5.0-7.0) 08/31/19 22:11 Ur Specific [place] 1.010 (1.005-1.030) 08/31/19 22:11 Urine Ketones Negative (NEG) 08/31/19 22:11 Urine Blood Negative (NEG) 08/31/19 22:11 Urine Nitrite Negative (NEG) 08/31/19 22:11 Ur Leukocyte Esterase Negative (NEG) 08/31/19 22:11 Urine Glucose Negative (NEG) 08/31/19 22:11 Urine Total Protein Negative (NEG) 08/31/19 22:11 Plasma/Serum Alcohol 82 mg/dL (<3) H 08/31/19 21:30 Medications List Reviewed: Yes Assessment & Plan - Problems (Diagnosis) (1) Hip fracture, left Current Visit: Yes Status: Acute (2) Hypertension Current Visit: Yes Status: Acute (3) Hypokalemia Current Visit: Yes Status: Acute (4) Hypomagnesemia Current Visit: Yes Status: Acute Physician Review: Patient Assessed, Agree with Above Assessment and Plan Physician Review Additional Text: The patient is a 64-year-old female with a known past medical history of tobacco smoking, polysubstance abuse and excessive alcohol consumption admitted overnight with a intra-articular fracture of the left hip fracture which occur after she fell off her bed. She arrived in the ER hemodynamically stable. Her ETOH was 82. No signs of withdrawal symptoms so far. She underwent DAYNE ej fixation of left proximal femur fx on 09/02/2019 with uneventful post op course. She has been cleared to go to SNF. She still pending acceptance Impressions: 1. Left hip fracture- s/p ORIF 09/02/19 2. Alcohol abuse and polysubstance abuse. 3. COPD 4. Hypertension 5. Hypomagnesemia 6. Anxiety 7. Hypokalemia Plan: -still persistent low k and mg , will replete again today - will adjust mobic to bid , risk of gastritis discussed - no evidence of alcohol withdrawal now -follow plan for SNF placement -Medically cleared to be discharged - will start low dose Toprol for better BP control
[2019-09-07] MEDS: MELOXICAM 7.5 MG TAB PO SCH ×2 (10:46→21:11)
[2019-09-07] MEDS: BUSPIRONE HCL 5 MG TABLET PO SCH ×3 (10:46→21:09)
[2019-09-07] MEDS: METOPROLOL TAR 25 MG TAB PO SCH ×2 (10:48→17:31)
[2019-09-07] MEDS ORDERED: POTASSIUM CL 40 MEQ in NA CHLORIDE 0.9% 500 ML IV SCH (11:00)
[2019-09-07] MEDS: LURASIDONE HCL 30 MG PO SCH (21:00)
[2019-09-07] MEDS: MELATONIN 5 MG TABLET PO SCH (21:10)
[2019-09-07] MEDS: IPRATROPIUM BROM 0.5MG/2.5ML NEB PRN (21:25)
[2019-09-07] MEDS: ALBUTEROL 2.5 MG/3 ML NEB SOL NEB PRN (21:25)
[2019-09-08] MEDS: HYDROCODONE/APAP 5/325 MG TAB PO PRN ×5 (03:20→21:34)
[2019-09-08 05:51] LABS: BUN Blood Urea Nitrogen 7 mg/dL (7-18); Bicarbonate 33 mmol/L (21-32); Glucose Level 100 mg/dL (74-106); Magnesium 1.8 mg/dL (1.8-2.4); Phosphorus 5.7 mg/dL (2.5-4.9); Potassium 4.9 mmol/L (3.5-5.1); Sodium Level 136 mmol/L (136-145)
[2019-09-08] MEDS: METOPROLOL TAR 25 MG TAB PO SCH ×2 (06:07→17:06)
[2019-09-08] MEDS: LEVOTHYROXINE SOD 0.112 MG TAB PO SCH (06:07)
[2019-09-08] MEDS: CALCIUM CARB 500MG/VIT D 200 IU TAB PO SCH ×3 (09:00→21:33)
[2019-09-08] MEDS: MAGNESIUM OXIDE 400 MG TAB PO SCH ×2 (09:05→21:32)
[2019-09-08] MEDS: RISPERIDONE 1 MG TABLET PO SCH ×2 (09:05→21:33)
[2019-09-08] MEDS: SENOSIDES 8.6 MG TAB PO SCH (09:05)
[2019-09-08] MEDS: PANTOPRAZOLE 40MG TABLET PO SCH (09:05)
[2019-09-08] MEDS: PREGABALIN 75 MG CAP PO SCH ×2 (09:05→21:51)
[2019-09-08] MEDS: FLUOXETINE 10 MG CAP PO SCH (09:06)
[2019-09-08] MEDS: MELOXICAM 7.5 MG TAB PO SCH ×2 (09:06→21:32)
[2019-09-08] MEDS: FUROSEMIDE 20 MG TABLET PO SCH ×2 (09:06→16:34)
[2019-09-08] MEDS: BUSPIRONE HCL 5 MG TABLET PO SCH ×3 (09:06→21:33)
[2019-09-08] MEDS: FOLIC ACID 1 MG TABLET PO SCH (09:06)
[2019-09-08] MEDS: CYCLOBENZAPRINE 10 MG TAB PO SCH (09:06)
[2019-09-08] MEDS: CYANOCOBALAMIN 1,000 MCG TAB PO SCH (09:07)
[2019-09-08] MEDS: ENOXAPARIN 40 MG/0.4 ML SQ SCH (09:07)
[2019-09-08] MEDS: LURASIDONE HCL 30 MG PO SCH (21:00)
[2019-09-08] MEDS: MELATONIN 5 MG TABLET PO SCH (21:32)
[2019-09-08 22:51] VITALS: O2SAT 95
--- NOTE | 2019-09-08 23:04 | PN ---
Subjective: This patient complained of lower extremity muscle spasm this morning. Otherwise, there has been no new complaint. Review of Systems: Muscle spasm as mentioned above. No fever, no chills. No short of breath. Ten points ROS unremarkable. Objective: GENERAL: The patient is awake, alert, and oriented x3. No distress. Vital Signs: Temperature 96.7, pulse 78, respiratory rate 16, blood pressure 141/85, oxygen saturation 97 on room air. HEENT: Normocephalic, atraumatic. PERRLA. EOMI. Neck: Supple. No JVD. Chest: Clear to auscultation. No labored breathing. No wheezing. No rales. Heart: Normal S1, S2. Regular rhythm and rate. Abdomen: Soft, nontender. Bowel sounds are present. Extremities: No edema, no cyanosis. Some tenderness around the surgical wound. Neuro: Patient awake, alert, and oriented x3, nonfocal. Psych: No anxiety, no agitation. Skin: No lesions or rashes. Laboratory Data: WBC 10.9, hemoglobin 11.3, platelet 234. Sodium 136, potassium 4.9, creatinine 0.36, phosphorus 5.7, and magnesium 1.8. Assessment And Plan: This patient was admitted for left hip fracture. She received open reduction and internal fixation on September 02. She is doing well with PT. She complains of some muscle spasm. She has been on Flexeril. The patient does not have SNF benefit as she has [place] insurance. [employer] was consulted and we will plan to transfer her to the [facility] for the further management. 1. Left hip fracture status post open reduction and internal fixation on September 02. Continue physical therapy and pain medication. Continue deep venous thrombosis prophylaxis. 2. History of alcohol abuse. We will continue monitor withdrawal signs, so far the patient has no agitation or tremor. 3. History of chronic obstructive pulmonary disease, stable. No wheezing. We will give nebulization if needed. 4. Hypertension, blood pressure is stable. Continue current treatment. 5. Hypomagnesemia. This was replaced, now magnesium 1.8. 6. Anxiety. His mood is rated stable. 7. Hypothyroidism. Continue Synthroid. 8. The patient is stable for transfer to the [facility] if placement is available. QT/MODL Voice ID: [id number] Report ID: [id number] [id number]
[2019-09-09] MEDS: LEVOTHYROXINE SOD 0.112 MG TAB PO SCH (05:25)
[2019-09-09] MEDS: METOPROLOL TAR 25 MG TAB PO SCH ×2 (05:25→17:15)
[2019-09-09] MEDS: HYDROCODONE/APAP 5/325 MG TAB PO PRN ×4 (05:25→17:15)
[2019-09-09] MEDS: IPRATROPIUM BROM 0.5MG/2.5ML NEB PRN (05:45)
[2019-09-09] MEDS: ALBUTEROL 2.5 MG/3 ML NEB SOL NEB PRN (05:45)
[2019-09-09] MEDS: FLUOXETINE 10 MG CAP PO SCH (08:56)
[2019-09-09] MEDS: PREGABALIN 75 MG CAP PO SCH (08:56)
[2019-09-09] MEDS: ENOXAPARIN 40 MG/0.4 ML SQ SCH (08:56)
[2019-09-09] MEDS: MAGNESIUM OXIDE 400 MG TAB PO SCH (08:57)
[2019-09-09] MEDS: SENOSIDES 8.6 MG TAB PO SCH (08:57)
[2019-09-09] MEDS: PANTOPRAZOLE 40MG TABLET PO SCH (08:57)
[2019-09-09] MEDS: CYCLOBENZAPRINE 10 MG TAB PO SCH (08:58)
[2019-09-09] MEDS: FUROSEMIDE 20 MG TABLET PO SCH ×2 (08:58→16:35)
[2019-09-09] MEDS: FOLIC ACID 1 MG TABLET PO SCH (08:58)
[2019-09-09] MEDS: CALCIUM CARB 500MG/VIT D 200 IU TAB PO SCH ×2 (08:58→13:27)
[2019-09-09] MEDS: CYANOCOBALAMIN 1,000 MCG TAB PO SCH (08:58)
[2019-09-09] MEDS: BUSPIRONE HCL 5 MG TABLET PO SCH ×2 (08:58→13:27)
[2019-09-09] MEDS: RISPERIDONE 1 MG TABLET PO SCH (08:59)
[2019-09-09] MEDS: MELOXICAM 7.5 MG TAB PO SCH (08:59)
[2019-09-09 16:36] VITALS: BP 104/55
[2019-09-09 17:58] VITALS: TEMP 97.6
--- NOTE | 2019-09-10 00:32 | DS ---
Date of Discharge: 09/09/2019 Hospital Course: This patient is a 64-year-old female, who presented for fall. She has a history of hypertension and alcohol abuse. She is well known to have tobacco abuse, polysubstance abuse, and alcohol abuse. The patient was noted to have left hip fracture. In the ED, her alcohol level was 82. Orthopedic doctor was consulted and performed ORIF on September 02. Patient recovered well from procedure. She attended physical therapy very well. Initially, we planned to discharge her to the SNF. However, her VA insurance does not support outside network. visual merchandise manager was consulted. She was transferred to our inpatient rehab for [facility]. Patient agreed with our plan. Physical Examination On Discharge: General: Patient is awake, alert, and oriented. No distress. Vital Signs: Temperature 97.6, pulse 88, blood pressure 104/55, oxygen saturation 94%. HEENT: Normocephalic and atraumatic. PERRLA. EOMI. Chest: Clear to auscultation. No labored breathing. No wheezing. Heart: Normal S1, S2. Regular rhythm and rate. No murmur. Abdomen: Soft, nontender. Extremities: No edema. No cyanosis. Mild tenderness around the surgical wound. Neurologic: Patient is awake, alert, and oriented x3. Laboratory Data: On discharge, sodium 136, potassium 4.8, creatinine is 0.36, magnesium 1.6. Discharge Diagnoses: 1. Left hip fracture, status post open reduction and internal fixation. 2. Alcohol abuse. 3. Hypertension. 4. Hypomagnesemia. 5. Anxiety. Discharge Medication: Please see medication list. Discharge Activity: As tolerated. Discharge Instructions: 1. Please be compliant with physical therapy. 2. Try to stop smoking and alcohol. 3. Please follow PCP in 1 week after discharge from rehab. 4. Please follow orthopedic doctor in 2 weeks. I spent about 30 minutes to discharge the patient. QT/MODL Voice ID: [id number] Report ID: [id number] JOSIE
== END 2019-09-09 17:41 | DRG 480 ==
LOC: ER 19:31 → ERHOLD 21:35 → 2ND 22:06
PROVIDERS: ADMIT Hospitalist; ATTEND Internal Medicine
PROC: 0QS706Z Reposition Left Upper Femur with Intramedullary Internal Fixation Device, Open Approach (ICD-10-PCS; principal; 2019-09-02 17:00)
DX: S72.142A Displaced intertrochanteric fracture of left femur, initial encounter for closed fracture (principal); G92 Toxic encephalopathy; R64 Cachexia; Z68.1 Body mass index [BMI] 19.9 or less, adult; E83.42 Hypomagnesemia; J44.9 Chronic obstructive pulmonary disease, unspecified; E03.9 Hypothyroidism, unspecified; I10 Essential (primary) hypertension; F41.9 Anxiety disorder, unspecified; E87.6 Hypokalemia; F10.129 Alcohol abuse with intoxication, unspecified; Y90.4 Blood alcohol level of 80-99 mg/100 ml; F19.10 Other psychoactive substance abuse, uncomplicated; W19.XXXA Unspecified fall, initial encounter; Y92.003 Bedroom of unspecified non-institutional (private) residence as the place of occurrence of the external cause; Z87.891 Personal history of nicotine dependence
CPT/HCPCS: 36415; 51702; 71045; 72170; 73530; 80048; 80076; 80320; 81003; 82947; 83735; 83880; 84100; 84132; 84484; 85025; 85610; 93005; 94640; 96365; 96375; 97110; 97116; 97161; 97165; 97530; 99285; J0330; J0690; J1170; J1650; J2175; J2405; J2704; J3010; J3411; J3475; J7030; J7040; J7120

== ENCOUNTER 2019-09-09 15:43 | Inpatient (IN) | payer OTHER, SELFPAY ==
--- NOTE | 2019-09-09 16:26 | R.PREADM ---
SCREENING DATE AND TIME 09/09/2019 15:47 (CLINICAL EDUCATION ASSISTANT) ANTICIPATED REHAB ADMISSION DATE 09/11/2019 REFERRING FACILITY [facility] REFERRAL DATE AND TIME 09/09/2019 15:47 (CLINICAL EDUCATION ASSISTANT) REFERRAL OFFICE PHONE [phone] REFERRAL ROOM# [id number] ACUTE ADMIT DATE 08/31/2019 Previous Rehabilitation(s): No. 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 Vish Crespo M.D. MR# [id number] NAME SHAUN REID ADDRESS [id number] [facility] PHONE [facility] [id number] DATE OF 1955 AGE 64 SSN# [id number] GENDER female MARITAL STATUS RACE white ADMIT FROM 02 - [facility] PRE-HOSPITAL LIVING SETTING 01 - Home (private home/apt. board/care, assisted living, shelter, transitional living) HOME TYPE AND DETAILS Type of home: two sam # of steps within the residence: 18 # of levels in the residence: 2 # of steps to enter the residence: 0 PRE-HOSPITAL LIVING WITH Family/Relatives FAMILY SUPPORT Yes PRIMARY FAMILY CONTACT NAME ROGELIO TANNER PRIMARY FAMILY CONTACT PHONE PHONE PRIMARY FAMILY CONTACT ON ADM.? no IS PRIMARY FAMILY CONTACT AUTH. REP.? no 1ST EMERGENCY CONTACT ROGELIO TANNER 1ST CONTACT PHONE PHONE 1ST CONTACT ON ADM. no IS 1ST CONTACT AUTH. REP.? no PHONE 2ND CONTACT ON ADM.? no PATIENT EMPLOYMENT STATUS Retired (for age) PATIENT EMPLOYER No Employer PAYOR INFORMATION: 1ST PAYOR NAME [facility] 1ST PAYOR INJURY/ILLNESS DUE TO ACCIDENT? No ANOTHER LIBERTARIAN RESPONSIBLE? No PRIMARY REHAB/ACUTE DIAGNOSIS: Left Proximal Femur Fracture ONSET DATE 08/31/2019 REHAB IMPAIRMENT CATEGORY (SD): 07 Fracture of LE (FracLE) MEETS 60% rule AFFECTED EXTREMITIES: LLE PRIMARY DIAGNOSIS-RELATED SURGERIES: Left Proximal Femur Frcature Closed reduction with Intramedullary Elias Fixation - performed by Chau Adams on 09/02/2019 COMORBID REHAB/ACUTE DIAGNOSES: - N/A COPD Anxiety Hypothyroidism HTN Left toes fracture INTERVENTIONS: - COPD 02 sats Medications Nebulizers Oxygen Resp. therapy X-rays RISK FOR COMPLICATIONS: - COPD Acute Resp failure Pneumonia Resp. Arrest SUMMARY OF ACUTE HOSPITALIZATION: Pt. is a 64 yo Right-handed white female. On 08/31/2019 she was admitted to [facility] with diagnosis Left Proximal Femur Fracture. Her impairment category is Orthopaedic Disorders 08 - Unilateral Hip Fracture (08.11). Pre-morbidly, Pt. was independent/mod-I in Locomotion, Safety Awareness, Balance, Social Cognition, T ransfers Control, Sphincter Control, Self-Care, Communication, and Endurance; and she had good Locomo tion, Balance, Safety Awareness, Social Cognition, Transfers Control, Sphincter Control, Self-Care, C ommunication, and Endurance. Currently, she has deficits of Locomotion, Balance, Safety Awareness, Transfers Control, Self-Care, C ommunication, and Endurance. Pt. is now referred to [facility] for acute in-patient rehabilitation in order to maximize patient's functional independence in activities of daily living, strength, ROM, and mobi lity. Patient has realistic goal of being discharged at assistance level 6-Valdo to reside at Home with Fam luann/Relatives. Shaun Reid is a 64 year old female that lives with her sister in a two sam home. Their bathroom is upstairs where her sister lives and has 15 steps. She normally ambulates w/o an assistive device but has a rollator. On 08/31/2019, she was going back towards her bed and fell backwards and landed on her left hip fell and was admitted to [facility] and treated. She is now medically stable but in need of 24-hour nursing, doctor supervision and oversite while receiving participate in 3hours of therapy a day/15 hours per week and receive care with an intensive interdisciplinary approach. PAST MEDICAL HISTORY Anxiety COPD HTN Hypothyroidism Left toes fracture PAST SURGICAL HISTORY: Nasal Surgery MEDICATION ALLERGIES: Sodium Chloride Polyethylene glycol PAROXETINE Potassium Chloride Sodium Bicarbonate ENVIRONMENTAL ALLERGIES: None Known - Substance Allergies None Known - Other Allergies None Known CODE STATUS: Full code WEIGHT/HEIGHT/BMI: WEIGHT 104 lbs HEIGHT 5' 2" BMI 19 DIET: - Diet Type Regular - Diet - Solid Texture Regular - Diet - Liquid Texture Regular - Tube Feed N/A REVIEW OF SYSTEMS: - Gen Alert and awake Lying in bed No apparent distress Oriented to: person, time, and place - Vital Signs Temperature: 97.1 F SBP/DBP: 97/53 Pulse: 65 Resp: 18 Vital signs stable, afebrile - CVS RRR VITAL SIGNS Temperature: 97.1 F SBP/DBP: 97/53 Pulse: 65 Resp: 18 Vital signs stable, afebrile MEDICATIONS/TREATMENT: Other- See attached MAR (Medication Administration Record). CURRENT SPHINCTER CONTROL: Pre-hospital bladder status: continent # of bladder accidents in the last 7 days prior to screenin Pre-hospital bowel status: continent # of bowel accidents in the last 7 days prior to screenin Last Bowel Movement Date: 09/06/2019 CURRENT LOCOMOTION STATUS: distance walked 270 feet DETAILED CURRENT FUNCTIONAL STATUS: - Bladder accident frequency: Ind - No accidents in the past 7 days - Bowel accident frequency: Ind - No accidents in the past 7 days - Walking score based on distance walked: 0(N/A) score based on distance walked: 3(>=150ft) - Wheelchair score based on distance traveled: 0(N/A) QI SCORES: - Self-Care A. Eating 05-Setup or clean-up assistance B. Oral hygiene 05-Setup or clean-up assistance C. Toileting hygiene 04-Supervision or touching assistance E. Shower/bathe self 04-Supervision or touching assistance F. Upper body dressing 04-Supervision or touching assistance G. Lower body dressing 03-Partial/moderate assistance H. Putting on/taking off footwear 02-Substantial/maximal assistance - Mobility A. Roll left and right 04-Supervision or touching assistance B. Sit to lying 04-Supervision or touching assistance C. Lying to sitting on side of bed 04-Supervision or touching assistance D. Sit to stand 04-Supervision or touching assistance E. Chair/[id number]-[id number] transfer 04-Supervision or touching assistance F. Toilet transfer 04-Supervision or touching assistance G. Car transfer 10-Not attempted due to environmental limitations I. Walk 10 feet 04-Supervision or touching assistance J. Walk 50 feet with two turns 88-Not attempted due to medical condition or safety concerns K. Walk 150 feet 04-Supervision or touching assistance L. Walking 10 feet on uneven surfaces 88-Not attempted due to medical condition or safety concerns M. 1 step (curb) 88-Not attempted due to medical condition or safety concerns N. 4 steps 88-Not attempted due to medical condition or safety concerns O. 12 steps 88-Not attempted due to medical condition or safety concerns P. Picking up object 88-Not attempted due to medical condition or safety concerns R. Wheel 50 feet with two turns 88-Not attempted due to medical condition or safety concerns S. Wheel 150 feet 88-Not attempted due to medical condition or safety concerns - Bladder and Bowel Bladder continence 0-Always continent Bowel continence 0-Always continent - Endurance Fair - Balance Fair - Safety Awareness Fair CURRENT FUNC. DEFICITS: Self-Care, Mobility, Endurance, Balance, and Safety Awareness CURRENT / PREVIOUS ASSISTIVE DEVICES: 3-in-1 [employer] Bed Rolling Walker Shower Chair Wheelchair CURRENT USE ASSISTIVE DEVICES: SCDs HISTORY OF FALLS. HAS THE PATIENT HAD TWO OR MORE FALLS IN THE PAST YEAR OR ANY FALL WITH INJURY IN T HE PAST YEAR?: No PRIOR SURGERY. DID THE PATIENT HAVE MAJOR SURGERY DURING THE 100 DAYS PRIOR TO ADMISSION?: No THERAPY NOTES FROM ACUTE CARE: Attached. SPECIAL NEEDS: - Safety Concerns Skin breakdown precautions needed due to skin breakdown risk PRECAUTIONS: - Posterior Hip Precaution No adduction across midline No external rotation No hip flexion >90 degrees No internal rotation No wheel chair propulsion - Weight Bearing Precaution TTWB left LE PATIENT NEEDS ACTIVE AND ONGOING THERAPEUTIC INTERVENTION OF MULTIPLE THERAPY DISCIPLINES, INCLUDING: - Dietary and Nutrition Adequate Nutrition. Nutritional Education. Nutritional Supplements. PATIENT NEEDS CLOSE MEDICAL SUPERVISION BY A REHABILITATION PHYSICIAN FOR: Coordination of Treatment Team Medical and Co-Morbidity Management PATIENT REQUIRES 24X7 REHAB NURSING FOR MEDICAL AND FUNCTIONAL MGT. OF THE FOLLOWING DEFICITS: Disease Management Medication Management Patient/Family Education Providing Safe Environment PATIENT REQUIRES INTENSIVE, COORDINATED INTERDISCIPLINARY APPROACH TO REHAB: Arranging Home Equipment/Services Discharge Planning Family Intervention/Training Java Front End Web Developer/Case Management PATIENT REHAB POTENTIAL: Yoli REID is able and expected to receive 3 hours of individualized therapy daily on at least 5 of e very 7 days Yoli REID's prognosis for significant practical improvement within a reasonable period of time appea rs Good Expected level of measurable improvement will be of a practical value to Yoli REID's functional capa city or adaptations to impairments Has a viable Discharge Plan Medically appropriate; condition is sufficiently stable to participate in intensive rehab program DISCHARGE PLAN: - Estimated Length of Stay (days) 14. - Consensus on plan Discharge plan has been discussed with primary caregiver. Patient/Family is in agreement with the gurpreet n. Primary caregiver is in agreement with the plan. - Patient/Family Goals Return home with assistance. - Planned Living Setting Upon Discharge Home, to live with Family/Relatives. Transitional Living. RECOMMENDED CARE LEVEL: IRF RECOMMENDATION DETAILS: Recommended Admission to Comprehensive Rehabilitation Program to Increase Functional [place] SCREENER'S COMPLETENESS CONFIRMATION: - Screening Confirmation The patient data collection on this preadmission screening form is finished PHYSICIANS REVIEW AND ADMISSION DETERMINATION Admit - Based on my review of the Pre-Admission Screening results, in my medical judgment and experie nce, I concur with the findings and recommend admission to [facility], as this patient requires an IRF level of care. SIGNATURE PANEL: Clinical Liaison - [electronically] signed by Raphael Barrow on 09/09/2019 at 16:22 (CLINICAL EDUCATION ASSISTANT) Physician Reviewer - [electronically] signed by Dr. Vish Crespo M.D. on 09/09/2019 at 16:25 (CLINICAL EDUCATION ASSISTANT )
[2019-09-09] MEDS ORDERED: DICYCLOMINE HCL 10 MG CAP PO PRN (17:51)
[2019-09-09] MEDS ORDERED: DICLOFENAC SOD D.R. 75 MG TAB PO PRN (17:51)
[2019-09-09] MEDS ORDERED: hydrOXYzine HCL 25 MG TAB PO PRN (17:51)
[2019-09-09] MEDS: METOPROLOL TAR 25 MG TAB PO SCH (18:38)
[2019-09-09] MEDS ORDERED: DICLOFENAC SODIUM PO PRN (19:02)
[2019-09-09 19:54] LABS: Urine Appearance CLEAR; Urine Bilirubin NEGATIVE (NEG); Urine Blood NEGATIVE (NEG); Urine Color YELLOW; Urine Glucose NEGATIVE (NEG); Urine Protein NEGATIVE (NEG); Urine Specific Gravity <=1.005 (1.005-1.030); Urine Urobilinogen 0.2 mg/dL (0.2-1.0); Urine pH 7.5 (5.0-7.0)
[2019-09-09 20:47] LABS: Urine Amorphous Sediment 1+ /HPF (NONE SEEN); Urine Bacteria >50 /HPF (<20); Urine Culture Reflex Order NOT NEEDED; Urine RBC <5 /HPF (NONE SEEN)
[2019-09-09] MEDS: POTASSIUM CL SA 10 MEQ TAB PO SCH (20:53)
[2019-09-09] MEDS: PREGABALIN 75 MG CAP PO SCH (20:54)
[2019-09-09] MEDS: BUSPIRONE HCL 5 MG TABLET PO SCH (20:54)
[2019-09-09] MEDS: RISPERIDONE 1 MG TABLET PO SCH (20:54)
[2019-09-09] MEDS: MELATONIN 5 MG TABLET PO SCH (20:55)
[2019-09-09] MEDS: CALCIUM CARB 500MG/VIT D 200 IU TAB PO SCH (20:57)
[2019-09-09] MEDS: LURASIDONE PO SCH (21:00)
[2019-09-09] MEDS ORDERED: ENOXAPARIN 40 MG/0.4 ML SQ SCH (21:00)
[2019-09-09] MEDS: HYDROCODONE/APAP 5/325 MG TAB PO PRN (21:34)
[2019-09-10] MEDS: HYDROCODONE/APAP 5/325 MG TAB PO PRN ×5 (01:26→18:30)
[2019-09-10] MEDS: METOPROLOL TAR 25 MG TAB PO SCH ×2 (05:22→17:28)
[2019-09-10 06:18] LABS: Absolute Lymphocytes (CBC) 2.3 K/uL (0.7-4.9); Basophils % 0.7 % (0-1.3); Hematocrit 29.2 % (36.0-45.0); Lymphocytes % 24.4 % (15.3-44.8); MPV 7.8 fL (7.6-11.3); RBC Red Blood Cell Count 3.03 M/uL (3.86-4.86)
[2019-09-10 06:21] LABS: Albumin 2.6 g/dL (3.4-5.0); BUN Blood Urea Nitrogen 8 mg/dL (7-18); Bicarbonate 32 mmol/L (21-32); Glucose Level 97 mg/dL (74-106); Magnesium 1.5 mg/dL (1.8-2.4); Potassium 4.4 mmol/L (3.5-5.1); Prealbumin 11.9 mg/dL (20-40); Sodium Level 141 mmol/L (136-145)
[2019-09-10] MEDS: LEVOTHYROXINE SOD 0.112 MG TAB PO SCH (07:01)
[2019-09-10] MEDS ORDERED: DOCUSATE NA/SENNA CONC 1 TAB PO SCH (08:00)
[2019-09-10] MEDS ORDERED: MAGNESIUM OXIDE 400 MG TAB PO SCH (08:00)
[2019-09-10] MEDS ORDERED: CYCLOBENZAPRINE 10 MG TAB PO SCH ×2 (08:00)
--- NOTE | 2019-09-10 08:49 | RAD REPORT ---
EXAM DESCRIPTION: RAD - Hip Left 2 View - 09/10/2019 6:52 am CLINICAL HISTORY: r/o dislocation Pain and swelling COMPARISON: Hip Left 2 View dated 08/31/2019 FINDINGS: Proximal femoral nail is in place on the left. No unexpected hardware finding. No dislocat ion. Skin ingrid are seen laterally.
[2019-09-10] MEDS: ENOXAPARIN 40 MG/0.4 ML SQ SCH (08:50)
[2019-09-10] MEDS: BUSPIRONE HCL 5 MG TABLET PO SCH ×3 (08:50→21:23)
[2019-09-10] MEDS: PREGABALIN 75 MG CAP PO SCH ×2 (08:51→20:28)
[2019-09-10] MEDS: CALCIUM CARB 500MG/VIT D 200 IU TAB PO SCH ×3 (08:51→21:24)
[2019-09-10] MEDS: PANTOPRAZOLE 40MG TABLET PO SCH (08:51)
[2019-09-10] MEDS: CYANOCOBALAMIN 1,000 MCG TAB PO SCH (08:52)
[2019-09-10] MEDS: FOLIC ACID 1 MG TABLET PO SCH (08:52)
[2019-09-10] MEDS: FE SULF/FA/VIT B COMP & C TAB PO SCH (08:52)
[2019-09-10] MEDS: TRAMADOL HCL 50 MG TAB PO PRN (08:53)
[2019-09-10] MEDS: FUROSEMIDE 20 MG TABLET PO SCH ×2 (08:53→17:27)
[2019-09-10] MEDS: FERROUS SULFATE 325 MG TAB PO SCH (08:54)
[2019-09-10] MEDS: RISPERIDONE 1 MG TABLET PO SCH ×2 (08:55→20:28)
[2019-09-10] MEDS: FLUOXETINE 10 MG CAP PO SCH (08:56)
[2019-09-10] MEDS: POTASSIUM CL SA 10 MEQ TAB PO SCH ×2 (08:56→20:28)
[2019-09-10] MEDS ORDERED: ONDANSETRON 4 MG (ODT) TAB PO PRN (10:23)
[2019-09-10] MEDS ORDERED: CYCLOBENZAPRINE 10 MG TAB PO PRN (10:30)
[2019-09-10] MEDS: MAGNESIUM OXIDE 400 MG TAB PO SCH ×2 (12:27→20:29)
[2019-09-10] MEDS: PROMOD 30 ML DOSE PO SCH (20:29)
[2019-09-10] MEDS: LURASIDONE PO SCH (21:00)
--- NOTE | 2019-09-10 21:17 | R.HP ---
FACILITY: [facility] ENCOUNTER DATE AND TIME: 09/10/2019 21:09 (BINDING STITCHER) MR#: [id number] NAME SHAUN REID ADDRESS: [address] [place] [address]: [facility] ZIP [address] PHONE: DATE OF : 1955 AGE: 64 SSN# [id number] GENDER: Female DEXTERITY Right-handed MARITAL STATUS RACE White PRE-HOSPITAL LIVING SETTING 01 - Home (private home/apt. board/care, assisted living, halfway, transitional living) PRE-HOSPITAL LIVING WITH Family/Relatives ENCOUNTER PHYSICIAN: Dr. Vish Crespo M.D. REFERRING DOCTOR: GENEVIEVE GONZÁLES DATE OF ADMISSION: 09/09/2019 17:41 (BINDING STITCHER) REFERRING FACILITY [facility] HOME TYPE AND DETAILS: Type of home: two sam # of steps within the residence: 18 # of levels in the residence: 2 # of steps to enter the residence: 0 ADMISSION DIAGNOSIS: Left Proximal Femur Fracture ONSET DATE: 08/31/2019 PRIMARY DIAGNOSIS-RELATED SURGERIES: Left Proximal Femur Frcature Closed reduction with Intramedullary Elias Fixation - performed by Racheal on, Stjuan on 09/02/2019 SECONDARY/COMORBID DIAGNOSES (TIERED): - N/A COPD Anxiety Hypothyroidism HTN Left toes fracture HISTORY OF PRESENT ILLNESS (HPI): Pt. is a 64 yo Right-handed white female. On 08/31/2019 she was admitted to [facility] with diagnosis Left Proximal Femur Fracture. Her impairment category is Orthopaedic Disorders 08 - Unilateral Hip Fracture (08.11). Pre-morbidly, Pt. was independent/mod-I in Locomotion, Safety Awareness, Balance, Social Cognition, T ransfers Control, Sphincter Control, Self-Care, Communication, and Endurance; and she had good Locomo tion, Balance, Safety Awareness, Social Cognition, Transfers Control, Sphincter Control, Self-Care, C ommunication, and Endurance. Currently, she has deficits of Locomotion, Balance, Safety Awareness, Transfers Control, Self-Care, C ommunication, and Endurance. Pt. is now referred to [facility] for acute in-patient rehabilitation in order to maximize patient's functional independence in activities of daily living, strength, ROM, and mobi lity. Patient has realistic goal of being discharged at assistance level 6-Valdo to reside at Home with Fam luann/Relatives. Shaun Reid is a 64 year old female that lives with her sister in a two sam home. Their bathroom is upstairs where her sister lives and has 15 steps. She normally ambulates w/o an assistive device but has a rollator. On 08/31/2019, she was going back towards her bed and fell backwards and landed on her left hip fell and was admitted to [facility] and treated. She is now medically stable but in need of 24-hour nursing, doctor supervision and oversite while receiving participate in 3hours of therapy a day/15 hours per week and receive care with an intensive interdisciplinary approach. MEDICATION ALLERGIES: Sodium Chloride Polyethylene glycol PAROXETINE Potassium Chloride Sodium Bicarbonate ENVIRONMENTAL ALLERGIES: None Known - Substance Allergies None Known - Other Allergies None Known PAST MEDICAL HISTORY: Anxiety COPD HTN Hypothyroidism Left toes fracture PAST SURGICAL HISTORY: Nasal Surgery FAMILY HISTORY: Family history is not contributory. SOCIAL HISTORY: - Home Living Family/Relatives REVIEW OF SYSTEMS: - Gen No Chills No Fatigue No Fever - Eyes No Double Vision No itchiness - ENMT No Difficulty Swallowing - CVS No Chest Discomfort No Chest Pain No Fatigue No Weight Gain - Resp No Cough No Shortness of Breath - GI Continent No Abdominal Pain No Constipation No Diarrhea - Continent No Kidney Pain No Painful Urination No Urinary Urgency - MSK No Joint Pain No Muscle Cramps No Stiffness - Skin No Itching No Rash No Suspicious Lesions - Neuro No Coordination Difficulty No Difficulty with Concentration No Memory Loss No Seizures No Weakness - Psych No Anxiety No Depression No HIV Exposure No Persistent Infections No Seasonal Allergies - Endo No Cold/Heat Intolerance No Excessive Hunger No Excessive Thirst No Excessive Urination PHYSICAL EXAM - Gen Alert and awake Lying in bed No apparent distress Oriented to: person, time, and place - Skin No skin breakdown. Normacephalic - Eyes No abnormalities - ENMT No abnormalities - Neck No abnormalities - CVS RRR - Chest No abnormalities - Resp Clear to auscultation - Abd Soft - GI Soft Deferred - No abnormalities - Ext Left hip surgical site has good hemostasis. - MSK 4+/5 weakness in left lower extremity - Neuro 4/5 strength left lower extremity. - Psych No abnormalities VITAL SIGNS Temperature: 97.2 F SBP/DBP: 128/68 Pulse: 65 Resp: 16 NURSING: - Shower allowing shower - Skin care per protocol PRECAUTIONS: - Posterior Hip Precaution No adduction across midline No external rotation No hip flexion >90 degrees No internal rotation No wheel chair propulsion - Weight Bearing Precaution TTWB left LE ACTIVITIES OOB only with supervision QI SCORES: - Self-Care A. Eating 05-Setup or clean-up assistance B. Oral hygiene 05-Setup or clean-up assistance C. Toileting hygiene 04-Supervision or touching assistance E. Shower/bathe self 04-Supervision or touching assistance F. Upper body dressing 04-Supervision or touching assistance G. Lower body dressing 03-Partial/moderate assistance H. Putting on/taking off footwear 02-Substantial/maximal assistance - Mobility A. Roll left and right 04-Supervision or touching assistance B. Sit to lying 04-Supervision or touching assistance C. Lying to sitting on side of bed 04-Supervision or touching assistance D. Sit to stand 04-Supervision or touching assistance E. Chair/och-lh-heexc transfer 04-Supervision or touching assistance F. Toilet transfer 04-Supervision or touching assistance G. Car transfer 10-Not attempted due to environmental limitations I. Walk 10 feet 04-Supervision or touching assistance J. Walk 50 feet with two turns 88-Not attempted due to medical condition or safety concerns K. Walk 150 feet 04-Supervision or touching assistance L. Walking 10 feet on uneven surfaces 88-Not attempted due to medical condition or safety concerns M. 1 step (curb) 88-Not attempted due to medical condition or safety concerns N. 4 steps 88-Not attempted due to medical condition or safety concerns O. 12 steps 88-Not attempted due to medical condition or safety concerns P. Picking up object 88-Not attempted due to medical condition or safety concerns R. Wheel 50 feet with two turns 88-Not attempted due to medical condition or safety concerns S. Wheel 150 feet 88-Not attempted due to medical condition or safety concerns - Bladder and Bowel Bladder continence 0-Always continent Bowel continence 0-Always continent - Endurance Fair - Balance Fair - Safety Awareness Fair CURRENT FUNC. DEFICITS: Self-Care, Mobility, Endurance, Balance, and Safety Awareness MEDICATIONS: - Other See attached MAR (Medication Administration Record) ASSESSMENT: Pt. is a 64 yo Right-handed white female.On 08/31/2019 she was admitted to [facility] with diagnosis Left Proximal Femur Fracture.Her impairment category is Orthopaedic Disorders 0 8 - Unilateral Hip Fracture (.).Pre-morbidly, Pt. was independent/mod-I in Locomotion, Safety Aw areness, Balance, Social Cognition, Transfers Control, Sphincter Control, Self-Care, Communication, a nd Endurance; and she had good Locomotion, Balance, Safety Awareness, Social Cognition, Transfers Con trol, Sphincter Control, Self-Care, Communication, and Endurance.Currently, she has deficits of Locom otion, Balance, Safety Awareness, Transfers Control, Self-Care, Communication, and Endurance.Pt. is n ow referred to [facility] for acute in-patient rehabilitation in order to maxbrisa camara patient's functional independence in activities of daily living, strength, ROM, and mobility.- R ehab Goal Patient has realistic goal of being discharged at assistance level 6-Valdo to reside at Home with Fam luann/Relatives. Shaun Reid is a 64 year old female that lives with her sister in a two sam home. Their bathroom is upstairs where her sister lives and has 15 steps. She normally ambulates w/o an assistive device but has a rollator. On 08/31/2019, she was going back towards her bed and fell backwards and landed on her left hip fell and was admitted to [facility] and treated. She is now medically stable but in need of 24-hour nursing, doctor supervision and oversite while receiving participate in 3hours of therapy a day/15 hours per week and receive care with an intensive interdisciplinary approach.REHAB PLAN: - Physical Therapy Decreased range of motion - to improve, our physical therapists will perform initial evaluation of pt 's status upon admission and devise an individualized program for increasing patient's Range of Motio n. Gait dysfunction - to improve, our physical therapists will perform initial evaluation of pt's status upon admission and devise an individualized program for Gait Training, and Wheel Chair mobility Inability to transfer - to improve, our physical therapists will perform initial evaluation of pt's s tatus upon admission and devise an individualized program for Bed mobility Need for home safety evaluation - to improve, our physical therapists will perform initial evaluation of pt's status upon admission and devise an individualized program for Home Evaluation Need in caregiver upon discharge - to improve, our physical therapists will perform initial evaluatio n of pt's status upon admission and devise an individualized program for Caregiver Training New precaution - to improve, our physical therapists will perform initial evaluation of pt's status u aguilar admission and devise an individualized program for Patient precaution education Poor balance - to improve, our physical therapists will perform initial evaluation of pt's status upo n admission and devise an individualized program for Balance Training Poor endurance - to improve, our physical therapists will perform initial evaluation of pt's status u aguilar admission and devise an individualized program for Endurance Training Weakness - to improve, our physical therapists will perform initial evaluation of pt's status upon ad mission and devise an individualized program for Aquatic Therapy, Neuromuscular Reeducation, and Stre ngthening Achieving independence - to improve, our physical therapists will perform initial evaluation of pt's status upon admission and devise an individualized program for Community Reintegration Activities - Occupational Therapy ADL deficits - to improve, our occupation therapists will perform initial evaluation of pt's status u aguilar admission and devise an individualized program for Bathing, Bed mobility, Community Reintegration , Cooking, Dressing, Eating, Fine Motor Skills, Grooming, Homemaking, Kitchen Mobility, Laundry, Mica ent Education, Safety Awareness, Splinting - Positioning, Transfers(Toilet, Tub, Shower), and Wheel C hair Management Need for infant caregiver - to improve, our occupation therapists will perform initial evaluation of pt's s tatus upon admission and devise an individualized program for Caregiver Training Weakness - to improve, our occupation therapists will perform initial evaluation of pt's status upon admission and devise an individualized program for Aquatic Therapy, Balance, Endurance, UE ROM, and U E strengthening MEDICAL PLAN: - Anterior Hip Precaution No abduction No active extension No adduction across midline No external rotation No hip flexion >90 degrees No internal rotation - Diet - Liquid Texture Start Regular - Tube Feed Start N/A - Diet Type Start Regular - Posterior Hip Precaution No adduction across midline No external rotation No hip flexion >90 degrees No internal rotation No wheel chair propulsion - Weight Bearing Precaution TTWB left LE - Skin care per protocol - Other See attached MAR (Medication Administration Record) - Diet - Solid Texture Regular - Shower shower DISCHARGE PLAN: - Estimated Length of Stay (days) 14. - Consensus on plan Discharge plan has been discussed with primary caregiver. Patient/Family is in agreement with the gurpreet n. Primary caregiver is in agreement with the plan. - Patient/Family Goals Return home with assistance. - Planned Living Setting Upon Discharge Home, to live with Family/Relatives. Transitional Living. SIGNATURE PANEL: (BINDING STITCHER)
--- NOTE | 2019-09-10 21:20 | PAPE ---
PATIENT: [facility] MR# [id number] REFERRING DOCTOR GENEVIEVE GONZÁLES EVALUATION DATE AND TIME 09/10/2019 21:17 (CLEANING TECHNICIAN) NAME SHAUN REID DATE OF 1955 AGE 64 PHONE SSN# [id number] GENDER female EVALUATING PHYSICIAN Dr. Vish Crespo M.D. ADMISSION DIAGNOSIS: Left Proximal Femur Fracture ONSET DATE 08/31/2019 SECONDARY/COMORBID DIAGNOSES TIERED: - N/A COPD Anxiety Hypothyroidism HTN Left toes fracture POST-ADMISSION FUNCTIONAL/MEDICAL STATUS: - Bladder Same accident frequency: Ind - No accidents in the past 7 days - Bowel Same accident frequency: Ind - No accidents in the past 7 days - Walking Same score based on distance walked: 0(N/A) Same score based on distance walked: 3(>=150ft) - Wheelchair Same score based on distance traveled: 0(N/A) STATUS CHANGE EVALUATION: No change in Functional or Medical Status is identified compared with Pre-Admission screening. PATIENT NEEDS CLOSE MEDICAL SUPERVISION BY A REHABILITATION PHYSICIAN FOR: Coordination of Treatment Team Medical and Co-Morbidity Management PATIENT REQUIRES 24X7 REHAB NURSING FOR MEDICAL AND FUNCTIONAL MGT. OF THE FOLLOWING DEFICITS: Disease Management Medication Management Patient/Family Education Providing Safe Environment PATIENT REQUIRES INTENSIVE, COORDINATED INTERDISCIPLINARY APPROACH TO REHAB: Arranging Home Equipment/Services Discharge Planning Family Intervention/Training Organ Recovery Coordinator/Case Management LIST OF IDENTIFIED AND POTENTIAL PROBLEMS: Alteration in leisure activities Bladder, Incontinence Bowel, Incontinence Infection, Actual or Potential Mobility Impaired Pain, Alteration in Comfort Self Care Deficit Skin Integrity, Actual or Potential Urinary Tract Infection (UTI), Actual or Potential RISK FOR COMPLICATIONS - COPD Acute Resp failure. Pneumonia. Resp. Arrest. INTERVENTIONS - COPD 02 sats. Medications. Nebulizers. Oxygen. Resp. therapy. X-rays. PATIENT COULD BE AT RISK FOR COMPLICATIONS FROM ADVERSE MEDICAL CONDITIONS DUE TO HIS/HER COMORBIDITI ES AND THE RIGORS OF THE INTENSIVE REHABILLITATION PROGRAM. METHODS OR INTERVENTIONS TO AVOID COMPLIC ATIONS INCLUDE: - Infection Clinical staff to assess and manage the signs and symptoms of infection including fever, redness, war mth, etc. - Urinary Tract Infection - Falls Patient will be evaluated for Fall Precautions and will be placed on Fall Precautions as indicated pe r protocol. - Skin Breakdown Nursing will assess skin daily using assessment tool and will place on Skin Breakdown Precautions as indicated per protocol. - Pain Clinical staff may employ non-medication methods such as massage, distraction, decrease stimulus, etc . as needed. Clinical staff will assess patient's pain level every shift per protocol to assess and e nsure pain management effectiveness. Medications will be given and the pain level re-assessed. PRELIMINARY PLAN OF CARE: - Physical Therapy Patient needs Physical Therapy for a daily minimum of 1.5 hours at least 5 out of 7 days, to improve: Mobility, Strengthening, Transfers, Stretching, ROM, Endurance, Ability to manage stairs, Gait, and Balance. - Rehabilitation Nursing Patient requires 24x7 Rehabilitation Nursing for: Pain Issues, Identifying and preventing risk factor s, Monitoring and reporting current medical conditions, Assisting with ambulation and transfer, June ting with all ADL-s, Teaching patients about disease process and medications, Family teaching, Provid ing safe environment, Bowel and Bladder Issues, Skin Integrity, and Medication Management. Patient needs Organ Recovery Coordinator and/or Case Management for: Discharge Planning, Arranging Home Equipmen t or Services, and Family Interventions. - Dietary and Nutrition Services Patient needs Dietary and Nutrition Services for: Adequate Nutrition, Nutritional Supplements, and Nu tritional Education. - Occupational Therapy Patient needs Occupational Therapy for a daily minimum of 1.5 hours at least 5 out of 7 days, to impr ove Activities of Daily Living, including: Eating, Grooming, Bathing, Dressing, Toileting, Toilet Tra nsfers, Community Reintegration, Higher functional activities, Adaptive Equipment, Splinting, Househo ld Tasks, and Other activities as determined. QI SCORES: - Self-Care A. Eating 05-Setup or clean-up assistance B. Oral hygiene 05-Setup or clean-up assistance C. Toileting hygiene 04-Supervision or touching assistance E. Shower/bathe self 04-Supervision or touching assistance F. Upper body dressing 04-Supervision or touching assistance G. Lower body dressing 03-Partial/moderate assistance H. Putting on/taking off footwear 02-Substantial/maximal assistance - Mobility A. Roll left and right 04-Supervision or touching assistance B. Sit to lying 04-Supervision or touching assistance C. Lying to sitting on side of bed 04-Supervision or touching assistance D. Sit to stand 04-Supervision or touching assistance E. Chair/ndy-gm-oxtqo transfer 04-Supervision or touching assistance F. Toilet transfer 04-Supervision or touching assistance G. Car transfer 10-Not attempted due to environmental limitations I. Walk 10 feet 04-Supervision or touching assistance J. Walk 50 feet with two turns 88-Not attempted due to medical condition or safety concerns K. Walk 150 feet 04-Supervision or touching assistance L. Walking 10 feet on uneven surfaces 88-Not attempted due to medical condition or safety concerns M. 1 step (curb) 88-Not attempted due to medical condition or safety concerns N. 4 steps 88-Not attempted due to medical condition or safety concerns O. 12 steps 88-Not attempted due to medical condition or safety concerns P. Picking up object 88-Not attempted due to medical condition or safety concerns R. Wheel 50 feet with two turns 88-Not attempted due to medical condition or safety concerns S. Wheel 150 feet 88-Not attempted due to medical condition or safety concerns - Bladder and Bowel Bladder continence 0-Always continent Bowel continence 0-Always continent - Endurance Fair - Balance Fair - Safety Awareness Fair POTENTIAL FUNCTIONAL GOALS FOR PATIENT TO ACHIEVE BY DISCHARGE: - Safety Precaution Patient will remain free from falls or injury at time of discharge. - Bed Mobility Patient will perform bed mobility at 4-Alfredo level of assistance. - Transfers Patient will complete transfers from bed to chair at 4-Alfredo level of assistance. - Mobility Patient will ambulate 150 ft with 4-Alfredo level of assistance with RW. PATIENT REHAB POTENTIAL Yoli REID is able and expected to receive 3 hours of individualized therapy daily on at least 5 of e very 7 days Yoli REID's prognosis for significant practical improvement within a reasonable period of time appea rs Good Expected level of measurable improvement will be of a practical value to Yoli REID's functional [facility] or adaptations to impairments Has a viable Discharge Plan Medically appropriate; condition is sufficiently stable to participate in intensive rehab program DISCHARGE PLAN: - Estimated Length of Stay (days) 14. - Consensus on plan Discharge plan has been discussed with primary caregiver. Patient/Family is in agreement with the gurpreet n. Primary caregiver is in agreement with the plan. - Patient/Family Goals Return home with assistance. - Planned Living Setting Upon Discharge Home, to live with Family/Relatives. Transitional Living. CONCLUSION ON REHABILITATION NECESSITY: I have evaluated patient's pre-admission functional status and, comparing it to the patient's post-ad mission functional status now, I conclude that the pre-admission assessment was accurate. Patient's c ondition on admission supports the medical necessity of admission to [facility]. It is safe to proceed with patient's therapy program. SIGNATURE PANEL: (CLEANING TECHNICIAN)
[2019-09-10] MEDS: MELATONIN 5 MG TABLET PO SCH (21:24)
[2019-09-10] MEDS: DOCUSATE NA/SENNA CONC 1 TAB PO PRN (21:24)
[2019-09-10] MEDS: CYCLOBENZAPRINE 10 MG TAB PO PRN (21:28)
[2019-09-11] MEDS: METOPROLOL TAR 25 MG TAB PO SCH ×2 (05:23→17:31)
[2019-09-11] MEDS: ENOXAPARIN 40 MG/0.4 ML SQ SCH (06:42)
[2019-09-11] MEDS: LEVOTHYROXINE SOD 0.112 MG TAB PO SCH (06:42)
[2019-09-11] MEDS: POTASSIUM CL SA 10 MEQ TAB PO SCH ×3 (08:00→20:14)
[2019-09-11] MEDS: PREGABALIN 75 MG CAP PO SCH ×2 (08:15→20:15)
[2019-09-11] MEDS: CALCIUM CARB 500MG/VIT D 200 IU TAB PO SCH ×3 (08:16→21:23)
[2019-09-11] MEDS: FE SULF/FA/VIT B COMP & C TAB PO SCH (08:16)
[2019-09-11] MEDS: CYANOCOBALAMIN 1,000 MCG TAB PO SCH (08:16)
[2019-09-11] MEDS: HYDROCODONE/APAP 5/325 MG TAB PO PRN ×3 (08:16→17:46)
[2019-09-11] MEDS: FERROUS SULFATE 325 MG TAB PO SCH (08:16)
[2019-09-11] MEDS: BUSPIRONE HCL 5 MG TABLET PO SCH ×3 (08:17→21:21)
[2019-09-11] MEDS: FUROSEMIDE 20 MG TABLET PO SCH ×2 (08:17→17:30)
[2019-09-11] MEDS: FLUOXETINE 10 MG CAP PO SCH (08:17)
[2019-09-11] MEDS: FOLIC ACID 1 MG TABLET PO SCH (08:18)
[2019-09-11] MEDS: MAGNESIUM OXIDE 400 MG TAB PO SCH ×2 (08:18→20:14)
[2019-09-11] MEDS: ENSURE ENLIVE 237 ML CAN PO SCH (08:20)
[2019-09-11] MEDS: RISPERIDONE 1 MG TABLET PO SCH ×2 (08:22→20:16)
[2019-09-11] MEDS: PANTOPRAZOLE 40MG TABLET PO SCH (08:25)
[2019-09-11] MEDS: TRAMADOL HCL 50 MG TAB PO PRN ×2 (10:01→16:53)
[2019-09-11] MEDS: PROMOD 30 ML DOSE PO SCH ×2 (10:05→20:15)
[2019-09-11] MEDS: CYCLOBENZAPRINE 10 MG TAB PO PRN (11:40)
[2019-09-11] MEDS: LURASIDONE PO SCH (21:00)
--- NOTE | 2019-09-11 21:11 | R.PN ---
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 Pt denied any Shortness of Breath. Up and down 5 steps x 2 with minimum assistance. K is mildly elevated. Will decrease K replacement. VITAL SIGNS Temperature: 98.7 F SBP/DBP: 130/68 Pulse: 68 Resp: 16 MEDICATION ALLERGIES: Sodium Chloride Polyethylene glycol PAROXETINE Potassium Chloride Sodium Bicarbonate ENVIRONMENTAL ALLERGIES: None Known - Substance Allergies None Known - Other Allergies None Known NURSING: - Shower allowing shower - Skin care per protocol PRECAUTIONS: - Posterior Hip Precaution No adduction across midline No external rotation No hip flexion >90 degrees No internal rotation No wheel chair propulsion - Weight Bearing Precaution TTWB left LE ACTIVITIES OOB only with supervision THERAPIES: - Dietary and Nutrition Adequate Nutrition. Nutritional Education. Nutritional Supplements. PHYSICAL EXAM - Gen Alert and awake Lying in bed No apparent distress Oriented to: person, time, and place - Skin No skin breakdown. Normacephalic - Eyes No abnormalities - ENMT No abnormalities - Neck No abnormalities - CVS RRR - Chest No abnormalities - Resp Clear to auscultation - Abd Soft - GI Soft Deferred - No abnormalities - Ext Left hip surgical site has good hemostasis. - MSK 4+/5 weakness in left lower extremity - Neuro 4/5 strength left lower extremity. - Psych No abnormalities ASSESSMENT: Pt. is a 64 yo Right-handed white female.On 08/31/2019 she was admitted to [facility] with diagnosis Left Proximal Femur Fracture.Her impairment category is Orthopaedic Disorders 0 8 - Unilateral Hip Fracture (04.06).Pre-morbidly, Pt. was independent/mod-I in Locomotion, Safety Aw areness, Balance, Social Cognition, Transfers Control, Sphincter Control, Self-Care, Communication, a nd Endurance; and she had good Locomotion, Balance, Safety Awareness, Social Cognition, Transfers Con trol, Sphincter Control, Self-Care, Communication, and Endurance.Currently, she has deficits of Locom otion, Balance, Safety Awareness, Transfers Control, Self-Care, Communication, and Endurance.Pt. is n ow referred to [facility] for acute in-patient rehabilitation in order to maxi jax patient's functional independence in activities of daily living, strength, ROM, and mobility.- R ehab Goal Patient has realistic goal of being discharged at assistance level 6-Valdo to reside at Home with Fam luann/Relatives. MDM/PLAN: - Physical Therapy Decreased range of motion - to improve, our physical therapists will perform initial evaluation of p t's status upon admission and devise an individualized program for increasing patient's Range of Mario on. Gait dysfunction - to improve, our physical therapists will perform initial evaluation of pt's statu s upon admission and devise an individualized program for Gait Training, and Wheel Chair mobility Inability to transfer - to improve, our physical therapists will perform initial evaluation of pt's status upon admission and devise an individualized program for Bed mobility Need for home safety evaluation - to improve, our physical therapists will perform initial evaluatio n of pt's status upon admission and devise an individualized program for Home Evaluation Need in caregiver upon discharge - to improve, our physical therapists will perform initial evaluati on of pt's status upon admission and devise an individualized program for Caregiver Training New precaution - to improve, our physical therapists will perform initial evaluation of pt's status upon admission and devise an individualized program for Patient precaution education Poor balance - to improve, our physical therapists will perform initial evaluation of pt's status up on admission and devise an individualized program for Balance Training Poor endurance - to improve, our physical therapists will perform initial evaluation of pt's status upon admission and devise an individualized program for Endurance Training Weakness - to improve, our physical therapists will perform initial evaluation of pt's status upon a dmission and devise an individualized program for Aquatic Therapy, Neuromuscular Reeducation, and Str engthening Achieving independence - to improve, our physical therapists will perform initial evaluation of pt's status upon admission and devise an individualized program for Community Reintegration Activities - Occupational Therapy ADL deficits - to improve, our occupation therapists will perform initial evaluation of pt's status upon admission and devise an individualized program for Bathing, Bed mobility, Community Reintegratio n, Cooking, Dressing, Eating, Fine Motor Skills, Grooming, Homemaking, Kitchen Mobility, Laundry, Pat ient Education, Safety Awareness, Splinting - Positioning, Transfers(Toilet, Tub, Shower), and Wheel Chair Management Need for farm or ranch 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 caretaker - to improve, our occupation therapists will perform initial evaluation of pt's status upon admission and devise an individualized program for Caregiver Training Weakness - to improve, our occupation therapists will perform initial evaluation of pt's status upon admission and devise an individualized program for Aquatic Therapy, Balance, Endurance, UE ROM, and UE strengthening - Other See attached MAR (Medication Administration Record) - Anterior Hip Precaution No abduction No active extension No adduction across midline No external rotation No hip flexion >90 degrees No internal rotation - Diet - Liquid Texture Continue Regular - Tube Feed Continue N/A - Diet Type Continue Regular - Posterior Hip Precaution No adduction across midline No external rotation No hip flexion >90 degrees No internal rotation No wheel chair propulsion - Weight Bearing Precaution TTWB left LE - Skin care per protocol - Diet - Solid Texture Continue Regular - Shower allowing shower FUNCTIONAL STATUS: UPDATED AT WEEKLY TEAM CONFERENCE - Bladder Same accident frequency: 7-Ind - No accidents in the past 7 days - Bowel Same accident frequency: 7-Ind - No accidents in the past 7 days - Walking Same score based on distance walked: 0(N/A) Same score based on distance walked: 3(>=150ft) - Wheelchair Same score based on distance traveled: 0(N/A) FUNCTIONAL STATUS: - Self-Care A. Eating Ind B. Grooming Ind C. Bathing sup D. Dressing - Upper sup E. Dressing - Lower Alfredo F. Toileting Alfredo - Sphincter Control G. Bladder control Alfredo H. Bowel control Alfredo - Transfers Control I. Bed/Chair/Wheelchair Alfredo J. Toilet Alfredo K. Tub/Shower modA - Locomotion L. Walk/Wheelchair (B) Alfredo M. Stairs modA - Communication N. Comprehension (B) sup O. Expression (B) sup - Social Cognition P. Social Interaction Valdo Q. Problem Solving maxA R. Memory Valdo - Endurance Fair - Balance Fair - Safety Awareness Good QI SCORES: - Self-Care A. Eating 05-Setup or clean-up assistance B. Oral hygiene 05-Setup or clean-up assistance C. Toileting hygiene 04-Supervision or touching assistance E. Shower/bathe self 04-Supervision or touching assistance F. Upper body dressing 04-Supervision or touching assistance G. Lower body dressing 03-Partial/moderate assistance H. Putting on/taking off footwear 02-Substantial/maximal assistance - Mobility A. Roll left and right 04-Supervision or touching assistance B. Sit to lying 04-Supervision or touching assistance C. Lying to sitting on side of bed 04-Supervision or touching assistance D. Sit to stand 04-Supervision or touching assistance E. Chair/oar-pq-lvoyo transfer 04-Supervision or touching assistance F. Toilet transfer 04-Supervision or touching assistance G. Car transfer 10-Not attempted due to environmental limitations I. Walk 10 feet 04-Supervision or touching assistance J. Walk 50 feet with two turns 88-Not attempted due to medical condition or safety concerns K. Walk 150 feet 04-Supervision or touching assistance L. Walking 10 feet on uneven surfaces 88-Not attempted due to medical condition or safety concerns M. 1 step (curb) 88-Not attempted due to medical condition or safety concerns N. 4 steps 88-Not attempted due to medical condition or safety concerns O. 12 steps 88-Not attempted due to medical condition or safety concerns P. Picking up object 88-Not attempted due to medical condition or safety concerns R. Wheel 50 feet with two turns 88-Not attempted due to medical condition or safety concerns S. Wheel 150 feet 88-Not attempted due to medical condition or safety concerns - Bladder and Bowel Bladder continence 0-Always continent Bowel continence 0-Always continent - Endurance Fair - Balance Fair - Safety Awareness Fair [facility]IC[facility]: Self-Care, Mobility, Endurance, Balance, and Safety Awareness SIGNATURE PANEL: (PRODUCTION MAINTENANCE MECHANIC)
[2019-09-11] MEDS: DOCUSATE NA/SENNA CONC 1 TAB PO PRN (21:21)
[2019-09-11] MEDS: MELATONIN 5 MG TABLET PO SCH (21:21)
[2019-09-12] MEDS: HYDROCODONE/APAP 5/325 MG TAB PO PRN ×5 (03:40→23:24)
[2019-09-12] MEDS: METOPROLOL TAR 25 MG TAB PO SCH ×2 (05:21→16:48)
[2019-09-12 06:25] LABS: BUN Blood Urea Nitrogen 16 mg/dL (7-18); Bicarbonate 30 mmol/L (21-32); Glucose Level 89 mg/dL (74-106); Magnesium 1.9 mg/dL (1.8-2.4); Potassium 4.7 mmol/L (3.5-5.1); Sodium Level 136 mmol/L (136-145)
[2019-09-12] MEDS: LEVOTHYROXINE SOD 0.112 MG TAB PO SCH (07:15)
[2019-09-12] MEDS: ENOXAPARIN 40 MG/0.4 ML SQ SCH (07:17)
[2019-09-12] MEDS: PANTOPRAZOLE 40MG TABLET PO SCH (07:17)
[2019-09-12] MEDS: ENSURE ENLIVE 237 ML CAN PO SCH (08:08)
[2019-09-12] MEDS: PROMOD 30 ML DOSE PO SCH ×2 (08:09→19:58)
[2019-09-12] MEDS: RISPERIDONE 1 MG TABLET PO SCH ×2 (08:09→19:41)
[2019-09-12] MEDS: MAGNESIUM OXIDE 400 MG TAB PO SCH ×2 (08:11→19:41)
[2019-09-12] MEDS: FE SULF/FA/VIT B COMP & C TAB PO SCH (08:11)
[2019-09-12] MEDS: BUSPIRONE HCL 5 MG TABLET PO SCH ×3 (08:12→20:22)
[2019-09-12] MEDS: FOLIC ACID 1 MG TABLET PO SCH (08:12)
[2019-09-12] MEDS: FLUOXETINE 10 MG CAP PO SCH (08:12)
[2019-09-12] MEDS: CALCIUM CARB 500MG/VIT D 200 IU TAB PO SCH ×3 (08:12→20:21)
[2019-09-12] MEDS: FERROUS SULFATE 325 MG TAB PO SCH (08:12)
[2019-09-12] MEDS: PREGABALIN 75 MG CAP PO SCH ×2 (08:12→19:40)
[2019-09-12] MEDS: CYANOCOBALAMIN 1,000 MCG TAB PO SCH (08:12)
[2019-09-12] MEDS: POTASSIUM CL SA 10 MEQ TAB PO SCH ×2 (08:13→19:40)
[2019-09-12] MEDS: FUROSEMIDE 20 MG TABLET PO SCH ×2 (08:16→16:47)
--- NOTE | 2019-09-12 09:48 | P.RH.PN ---
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 Goal: Mobility, Transfers, Self Care Vital Signs: Last Vital Signs Temp 97.1 F 09/12/19 07:23 Pulse 84 09/12/19 08:16 Resp 14 09/12/19 08:16 BP 100/58 L 09/12/19 08:16 Pulse Ox 97 09/12/19 08:16 Laboratory: Laboratory Last Values WBC 9.5 K/uL (4.3-10.9) 09/10/19 05:47 RBC 3.03 M/uL (3.86-4.86) L 09/10/19 05:47 Hgb 10.0 g/dL (12.0-15.0) L 09/10/19 05:47 Hct 29.2 % (36.0-45.0) L 09/10/19 05:47 MCV 96.4 fL (80-100) 09/10/19 05:47 MCH 33.1 pg (27.0-35.0) 09/10/19 05:47 MCHC 34.4 g/dL (32.0-36.0) 09/10/19 05:47 RDW 14.3 % (12.1-15.2) 09/10/19 05:47 Plt Count 386 K/uL (152-406) D 09/10/19 05:47 MPV 7.8 fL (7.6-11.3) D 09/10/19 05:47 Neutrophils % 63.2 % (41.7-73.7) 09/10/19 05:47 Lymphocytes % 24.4 % (15.3-44.8) 09/10/19 05:47 Monocytes % 9.5 % (3.3-12.3) 09/10/19 05:47 Eosinophils % 2.2 % (0-4.4) 09/10/19 05:47 Basophils % 0.7 % (0-1.3) 09/10/19 05:47 Absolute Neutrophils 6.0 K/uL (1.8-8.0) 09/10/19 05:47 Absolute Lymphocytes 2.3 K/uL (0.7-4.9) 09/10/19 05:47 Absolute Monocytes 0.9 K/uL (0.1-1.3) 09/10/19 05:47 Absolute Eosinophils 0.2 K/uL (0-0.5) 09/10/19 05:47 Absolute Basophils 0.1 K/uL (0-0.5) 09/10/19 05:47 Sodium 136 mmol/L (136-145) 09/12/19 05:44 Potassium 4.7 mmol/L (3.5-5.1) 09/12/19 05:44 Chloride 102 mmol/L (98-107) 09/12/19 05:44 Carbon Dioxide 30 mmol/L (21-32) 09/12/19 05:44 BUN 16 mg/dL (7-18) 09/12/19 05:44 Creatinine 0.50 mg/dL (0.55-1.3) L 09/12/19 05:44 Estimated GFR > 90 mL/min (=/>90) 09/12/19 05:44 Glucose 89 mg/dL (74-106) 09/12/19 05:44 Calcium 9.1 mg/dL (8.5-10.1) 09/12/19 05:44 Magnesium 1.9 mg/dL (1.8-2.4) 09/12/19 05:44 Albumin 2.6 g/dL (3.4-5.0) L 09/10/19 05:47 Prealbumin 11.9 mg/dL (20-40) L 09/10/19 05:47 Urine Color Yellow 09/09/19 19:00 Urine Appearance Clear 09/09/19 19:00 Urine pH 7.5 (5.0-7.0) H 09/09/19 19:00 Ur Specific [employer] <=1.005 (1.005-1.030) 09/09/19 19:00 Urine Ketones Negative (NEG) 09/09/19 19:00 Urine Blood Negative (NEG) 09/09/19 19:00 Urine Nitrite Negative (NEG) 09/09/19 19:00 Urine Bilirubin Negative (NEG) 09/09/19 19:00 Urine Urobilinogen 0.2 mg/dL (0.2-1.0) 09/09/19 19:00 Ur Leukocyte Esterase Negative (NEG) 09/09/19 19:00 Urine RBC <5 /HPF (NONE SEEN) 09/09/19 19:00 Urine WBC <5 /HPF (<5) 09/09/19 19:00 Ur Squamous Epith Cells 5-10 /HPF (NONE SEEN) H 09/09/19 19:00 Amorphous Sediment 1+ /HPF (NONE SEEN) 09/09/19 19:00 Urine Bacteria >50 /HPF (<20) H 09/09/19 19:00 Urine Culture Reflexed Not needed 09/09/19 19:00 Urine Glucose Negative (NEG) 09/09/19 19:00 Urine Total Protein Negative (NEG) 09/09/19 19:00 Weight: 93 lb Wound Present: Yes Closed Surgical Incision Present: Yes Negative Pressure Wound Therapy Present: No Physician Update: Labs reviewed and are stable. She is doing stairs with crutches with touch down weight bearing of the left lower extremity after surgery. She is safe with her walker. Medical Issues: PAtient is continent with bladder and bowel Pain Issues: Patient is taking [place] 5/325mg Q4H PRN and Tramadol 50mg Q6H PRN PO for pain Functional Improvement: Patient presents w/ good attitude toward therapy and work ethic. Patient is working well in therapy and progressing toward goals. Speech Therapy Update: Patient obtained an 11/15 on the BIMS and a / on the MOCA indicating a mild-moderate cognitive impairment characterized by impulsivity, decreased STM, reduced mental flexibility and ability to perform mental calculations, decreased verbal reasoning, and poor safety awareness/ problem solving skills. Patient requires ST to address aforementioned deficits , and to decrease risk for falls/injuries. Summary: Patient's care plan and terminal make up operator goals have been reviewed and revised as necessary. Please see the Rehabilitation Signature page for all necessary signatures.
[2019-09-12] MEDS: TRAMADOL HCL 50 MG TAB PO PRN ×2 (09:53→19:58)
[2019-09-12] MEDS: DOCUSATE NA 100 MG CAP PO SCH ×2 (11:24→20:00)
--- NOTE | 2019-09-12 15:11 | FAST ---
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 Vish Crespo M.D. ADMISSION DIAGNOSIS: - Orthopaedic Disorders 08 - Unilateral Hip Fracture (08.11) Left Proximal Femur Fracture. EATING: Not assessed/no information CODE: - ORAL HYGIENE: ORAL HYGIENE - STEP 1: Does the patient complete the activity by him/herself with no assistance (physical, verbal/nonverbal cueing, setup/clean-up)? Yes. 1. [id number] ADMISSION PERFORMANCE: Independent CODE: 06 TOILETING HYGIENE: Not assessed/no information CODE: - BATHING: SHOWER/BATHE SELF - STEP 1: Does the patient complete the activity by him/herself with no assistance (physical, verbal/nonverbal cueing, setup/clean-up)? No. SHOWER/BATHE SELF - STEP 2: Does the patient need only setup/clean-up assistance from one helper? No. SHOWER/BATHE SELF - STEP 3: Does the patient need only verbal/nonverbal cueing or touching/steadying/contact guard assistance fro m one helper? Yes. 1. [id number] ADMISSION PERFORMANCE: Supervision or touching assistance CODE: 04 DRESSING - UPPER BODY: DRESSING - UPPER BODY - STEP 1: Does the patient complete the activity by him/herself with no assistance (physical, verbal/nonverbal cueing, setup/clean-up)? No. DRESSING - UPPER BODY - STEP 2: Does the patient need only setup/clean-up assistance from one helper? Yes. 1. [id number] ADMISSION PERFORMANCE: Setup or clean-up assistance CODE: 05 DRESSING - LOWER BODY: DRESSING - LOWER BODY - STEP 1: Does the patient complete the activity by him/herself with no assistance (physical, verbal/nonverbal cueing, setup/clean-up)? No. DRESSING - LOWER BODY - STEP 2: Does the patient need only setup/clean-up assistance from one helper? No. DRESSING - LOWER BODY - STEP 3: Does the patient need only verbal/nonverbal cueing or touching/steadying/contact guard assistance fro m one helper? Yes. 1. [id number] ADMISSION PERFORMANCE: Supervision or touching assistance CODE: 04 PUTTING ON/TAKING OFF FOOTWEAR: FOOTWEAR - STEP 1: Does the patient complete the activity by him/herself with no assistance (physical, verbal/nonverbal cueing, setup/clean-up)? No. FOOTWEAR - STEP 2: Does the patient need only setup/clean-up assistance from one helper? No. FOOTWEAR - STEP 3: Does the patient need only verbal/nonverbal cueing or touching/steadying/contact guard assistance fro m one helper? Yes. 1. [id number] ADMISSION PERFORMANCE: Supervision or touching assistance CODE: 04 DOES THE PATIENT USE A WHEELCHAIR/SCOOTER? CODE: EXPR INDICATE THE TYPE OF WHEELCHAIR/SCOOTER USED: CODE: EXPR INDICATE THE TYPE OF WHEELCHAIR/SCOOTER USED: CODE: EXPR BLADDER AND BOWEL: CODE: EXPR CODE: EXPR SIGNATURE PANEL: The following modified sections: 1. [id number] Admission Performance, 1. [id number] Admission Performance, 1. [id number] Admission Performance, 1. [id number] Admission Performance, 1. [id number] Admission Performance, 1. [id number] Admission Performance were [electronically] signed by GAURAV Holguin on SunSep 12 2019 15:10:39 GMT-0600 (Central Standard Time)
[2019-09-12] MEDS: ALBUTEROL INHALER 60 PUFF/8 GM IH PRN ×2 (15:55→19:43)
[2019-09-12] MEDS: MELATONIN 5 MG TABLET PO SCH (20:18)
[2019-09-12] MEDS: LURASIDONE PO SCH (20:21)
--- NOTE | 2019-09-13 02:09 | FAST ---
SHIFT START DATE/TIME: 09/12/2019 19:00 (STEAM BLOCKER) SHIFT END DATE/TIME: 09/13/2019 07:00 (STEAM BLOCKER) NAME SHAUN REID DATE OF : 1955 DATE OF ADMISSION: 09/09/2019 17:41 (STEAM BLOCKER) PHONE: AGE: 64 N# [id number] GENDER: Female ENCOUNTER PHYSICIAN: Dr. Vish Crespo M.D. ADMISSION DIAGNOSIS: - Orthopaedic Disorders 08 - Unilateral Hip Fracture (08.11) Left Proximal Femur Fracture. EATING: Not assessed/no information CODE: - ORAL HYGIENE: ORAL HYGIENE - STEP 1: Does the patient complete the activity by him/herself with no assistance (physical, verbal/nonverbal cueing, setup/clean-up)? No. ORAL HYGIENE - STEP 2: Does the patient need only setup/clean-up assistance from one helper? No. ORAL HYGIENE - STEP 3: Does the patient need only verbal/nonverbal cueing or touching/steadying/contact guard assistance fro one helper? Yes. 1. [id number] ADMISSION PERFORMANCE: Supervision or touching assistance CODE: 04 TOILETING HYGIENE: TOILETING HYGIENE - STEP 1: Does the patient complete the activity by him/herself with no assistance (physical, verbal/nonverbal cueing, setup/clean-up)? No. TOILETING HYGIENE - STEP 2: Does the patient need only setup/clean-up assistance from one helper? No. TOILETING HYGIENE - STEP 3: Does the patient need only verbal/nonverbal cueing or touching/steadying/contact guard assistance fro m one helper? Yes. 1. [id number] ADMISSION PERFORMANCE: Supervision or touching assistance CODE: 04 BATHING: Not assessed/no information CODE: - DRESSING - UPPER BODY: Not assessed/no information CODE: - DRESSING - LOWER BODY: Not assessed/no information CODE: - PUTTING ON/TAKING OFF FOOTWEAR: Not assessed/no information CODE: - ROLL LEFT AND RIGHT: ROLL LEFT AND RIGHT - STEP 1: Does the patient complete the activity by him/herself with no assistance (physical, verbal/nonverbal cueing, setup/clean-up)? No. ROLL LEFT AND RIGHT - STEP 2: Does the patient need only setup/clean-up assistance from one helper? No. ROLL LEFT AND RIGHT - STEP 3: Does the patient need only verbal/nonverbal cueing or touching/steadying/contact guard assistance fro m one helper? Yes. 1. [id number] ADMISSION PERFORMANCE: Supervision or touching assistance CODE: 04 SIT TO LYING: SIT TO LYING - STEP 1: Does the patient complete the activity by him/herself with no assistance (physical, verbal/nonverbal cueing, setup/clean-up)? No. SIT TO LYING - STEP 2: Does the patient need only setup/clean-up assistance from one helper? No. SIT TO LYING - STEP 3: Does the patient need only verbal/nonverbal cueing or touching/steadying/contact guard assistance fro m one helper? Yes. 1. [id number] ADMISSION PERFORMANCE: Supervision or touching assistance CODE: 04 LYING TO SITTING: LYING TO SITTING ON SIDE OF BED - STEP 1: Does the patient complete the activity by him/herself with no assistance (physical, verbal/nonverbal cueing, setup/clean-up)? No. LYING TO SITTING ON SIDE OF BED - STEP 2: Does the patient need only setup/clean-up assistance from one helper? No. LYING TO SITTING ON SIDE OF BED - STEP 3: Does the patient need only verbal/nonverbal cueing or touching/steadying/contact guard assistance fro m one helper? Yes. 1. [id number] ADMISSION PERFORMANCE: Supervision or touching assistance CODE: 04 SIT TO STAND: SIT TO STAND - STEP 1: Does the patient complete the activity by him/herself with no assistance (physical, verbal/nonverbal cueing, setup/clean-up)? No. SIT TO STAND - STEP 2: Does the patient need only setup/clean-up assistance from one helper? No. SIT TO STAND - STEP 3: Does the patient need only verbal/nonverbal cueing or touching/steadying/contact guard assistance fro m one helper? Yes. 1. [id number] ADMISSION PERFORMANCE: Supervision or touching assistance CODE: 04 TRANSFERS: BED, CHAIR: CHAIR/[id number] TRANSFER - STEP 1: Does the patient complete the activity by him/herself with no assistance (physical, verbal/nonverbal cueing, setup/clean-up)? No. CHAIR/[id number] TRANSFER - STEP 2: Does the patient need only setup/clean-up assistance from one helper? No. CHAIR/[id number] TRANSFER - STEP 3: Does the patient need only verbal/nonverbal cueing or touching/steadying/contact guard assistance fro m one helper? Yes. 1. [id number] ADMISSION PERFORMANCE: Supervision or touching assistance CODE: 04 TRANSFER TOILET: TOILET TRANSFER - STEP 1: Does the patient complete the activity by him/herself with no assistance (physical, verbal/nonverbal cueing, setup/clean-up)? No. TOILET TRANSFER - STEP 2: Does the patient need only setup/clean-up assistance from one helper? No. TOILET TRANSFER - STEP 3: Does the patient need only verbal/nonverbal cueing or touching/steadying/contact guard assistance fro m one helper? Yes. 1. [id number] ADMISSION PERFORMANCE: Supervision or touching assistance CODE: 04 TRANSFERS: CAR: Not assessed/no information CODE: - WALK 10 FEET: Not assessed/no information CODE: - 1 STEP (CURB): Not assessed/no information CODE: - PICKING UP OBJECT: Not assessed/no information CODE: - DOES THE PATIENT USE A WHEELCHAIR/SCOOTER? CODE: EXPR WHEEL 50 FEET WITH TWO TURNS: Not assessed/no information CODE: - INDICATE THE TYPE OF WHEELCHAIR/SCOOTER USED: CODE: EXPR WHEEL 150 FEET: Not assessed/no information CODE: - INDICATE THE TYPE OF WHEELCHAIR/SCOOTER USED: CODE: EXPR BLADDER AND BOWEL: H350. BLADDER CONTINENCE (3-DAY ASSESSMENT PERIOD): Always continent (no documented incontinence) CODE: 0 H400. BOWEL CONTINENCE (3-DAY ASSESSMENT PERIOD): Always continent CODE: 0
[2019-09-13] MEDS: TRAMADOL HCL 50 MG TAB PO PRN ×2 (02:16→18:08)
[2019-09-13] MEDS: ALBUTEROL INHALER 60 PUFF/8 GM IH PRN ×3 (02:19→13:34)
[2019-09-13] MEDS: METOPROLOL TAR 25 MG TAB PO SCH ×2 (04:59→16:26)
[2019-09-13 05:33] VITALS: BMI 18.1
[2019-09-13] MEDS: PANTOPRAZOLE 40MG TABLET PO SCH (06:19)
[2019-09-13] MEDS: LEVOTHYROXINE SOD 0.112 MG TAB PO SCH (06:19)
[2019-09-13] MEDS: ENOXAPARIN 40 MG/0.4 ML SQ SCH (06:39)
[2019-09-13] MEDS: ENSURE ENLIVE 237 ML CAN PO SCH (07:56)
[2019-09-13] MEDS: PROMOD 30 ML DOSE PO SCH ×2 (07:56→19:31)
[2019-09-13] MEDS: HYDROCODONE/APAP 5/325 MG TAB PO PRN ×3 (07:56→19:48)
[2019-09-13] MEDS: RISPERIDONE 1 MG TABLET PO SCH ×2 (07:59→19:27)
[2019-09-13] MEDS: DOCUSATE NA 100 MG CAP PO SCH ×2 (08:00→19:34)
[2019-09-13] MEDS: CALCIUM CARB 500MG/VIT D 200 IU TAB PO SCH ×3 (08:00→19:29)
[2019-09-13] MEDS ORDERED: POTASSIUM CL SA 10 MEQ TAB PO SCH (08:00)
[2019-09-13] MEDS: BUSPIRONE HCL 5 MG TABLET PO SCH ×3 (08:00→19:29)
[2019-09-13] MEDS: FERROUS SULFATE 325 MG TAB PO SCH (08:00)
[2019-09-13] MEDS: FLUOXETINE 10 MG CAP PO SCH (08:00)
[2019-09-13] MEDS: PREGABALIN 75 MG CAP PO SCH ×2 (08:01→19:29)
[2019-09-13] MEDS: FE SULF/FA/VIT B COMP & C TAB PO SCH (08:01)
[2019-09-13] MEDS: MAGNESIUM OXIDE 400 MG TAB PO SCH ×2 (08:01→19:29)
[2019-09-13] MEDS: CYANOCOBALAMIN 1,000 MCG TAB PO SCH (08:01)
[2019-09-13] MEDS: POTASSIUM CL SA 10 MEQ TAB PO SCH ×2 (08:05→19:27)
[2019-09-13] MEDS: FUROSEMIDE 20 MG TABLET PO SCH ×2 (08:05→16:25)
[2019-09-13] MEDS: FOLIC ACID 1 MG TABLET PO SCH (08:08)
--- NOTE | 2019-09-13 17:39 | FAST ---
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 Vish Crespo M.D. ADMISSION DIAGNOSIS: - Orthopaedic Disorders 08 - Unilateral Hip Fracture (08.11) Left Proximal Femur Fracture. EATING: Not assessed/no information CODE: - ORAL HYGIENE: Not assessed/no information CODE: - TOILETING HYGIENE: TOILETING HYGIENE - STEP 1: Does the patient complete the activity by him/herself with no assistance (physical, verbal/nonverbal cueing, setup/clean-up)? No. TOILETING HYGIENE - STEP 2: Does the patient need only setup/clean-up assistance from one helper? No. TOILETING HYGIENE - STEP 3: Does the patient need only verbal/nonverbal cueing or touching/steadying/contact guard assistance fro m one helper? Yes. 1. [id number] ADMISSION PERFORMANCE: Supervision or touching assistance CODE: 04 BATHING: Not assessed/no information CODE: - DRESSING - UPPER BODY: Not assessed/no information CODE: - DRESSING - LOWER BODY: Not assessed/no information CODE: - PUTTING ON/TAKING OFF FOOTWEAR: Not assessed/no information CODE: - DOES THE PATIENT USE A WHEELCHAIR/SCOOTER? CODE: EXPR INDICATE THE TYPE OF WHEELCHAIR/SCOOTER USED: CODE: EXPR INDICATE THE TYPE OF WHEELCHAIR/SCOOTER USED: CODE: EXPR BLADDER AND BOWEL: CODE: EXPR CODE: EXPR SIGNATURE PANEL: The following modified sections: 1. [id number] Admission Performance were [electronically] signed by All marlen Galvan OT on Sat Sep 13 2019 17:38:24 GMT-0600 (Central Standard Time)
[2019-09-13] MEDS: MELATONIN 5 MG TABLET PO SCH (19:27)
[2019-09-13] MEDS: CYCLOBENZAPRINE 10 MG TAB PO PRN (19:28)
[2019-09-13] MEDS: LURASIDONE PO SCH (19:31)
[2019-09-13] MEDS: DOCUSATE NA/SENNA CONC 1 TAB PO PRN (19:47)
[2019-09-14] MEDS: HYDROCODONE/APAP 5/325 MG TAB PO PRN ×4 (02:03→20:52)
[2019-09-14] MEDS: METOPROLOL TAR 25 MG TAB PO SCH ×2 (05:01→16:00)
[2019-09-14] MEDS: TRAMADOL HCL 50 MG TAB PO PRN ×3 (05:02→16:56)
[2019-09-14] MEDS: ENOXAPARIN 40 MG/0.4 ML SQ SCH (06:21)
[2019-09-14] MEDS: LEVOTHYROXINE SOD 0.112 MG TAB PO SCH (06:21)
[2019-09-14] MEDS: PANTOPRAZOLE 40MG TABLET PO SCH (06:21)
[2019-09-14] MEDS: ENSURE ENLIVE 237 ML CAN PO SCH (07:33)
[2019-09-14] MEDS: PROMOD 30 ML DOSE PO SCH ×2 (07:33→18:39)
[2019-09-14] MEDS: FE SULF/FA/VIT B COMP & C TAB PO SCH (07:35)
[2019-09-14] MEDS: BUSPIRONE HCL 5 MG TABLET PO SCH ×3 (07:35→18:37)
[2019-09-14] MEDS: RISPERIDONE 1 MG TABLET PO SCH ×2 (07:35→18:37)
[2019-09-14] MEDS: FUROSEMIDE 20 MG TABLET PO SCH ×2 (07:36→16:00)
[2019-09-14] MEDS: FLUOXETINE 10 MG CAP PO SCH (07:36)
[2019-09-14] MEDS: FOLIC ACID 1 MG TABLET PO SCH (07:36)
[2019-09-14] MEDS: POTASSIUM CL SA 10 MEQ TAB PO SCH ×2 (07:36→18:37)
[2019-09-14] MEDS: CALCIUM CARB 500MG/VIT D 200 IU TAB PO SCH ×3 (07:37→18:37)
[2019-09-14] MEDS: FERROUS SULFATE 325 MG TAB PO SCH (07:37)
[2019-09-14] MEDS: PREGABALIN 75 MG CAP PO SCH ×2 (07:37→18:37)
[2019-09-14] MEDS: CYANOCOBALAMIN 1,000 MCG TAB PO SCH (07:37)
[2019-09-14] MEDS: DOCUSATE NA 100 MG CAP PO SCH ×2 (07:37→18:37)
[2019-09-14] MEDS: MAGNESIUM OXIDE 400 MG TAB PO SCH ×2 (07:38→18:38)
[2019-09-14] MEDS: CYCLOBENZAPRINE 10 MG TAB PO PRN ×3 (07:40→20:52)
[2019-09-14] MEDS: ALBUTEROL INHALER 60 PUFF/8 GM IH PRN ×2 (11:38→18:49)
[2019-09-14] MEDS: MELOXICAM 7.5 MG TAB PO PRN ×2 (13:55→18:38)
[2019-09-14] MEDS: DOCUSATE NA/SENNA CONC 1 TAB PO PRN (18:37)
[2019-09-14] MEDS: MELATONIN 5 MG TABLET PO SCH (18:37)
[2019-09-14] MEDS: LURASIDONE PO SCH (18:40)
[2019-09-15] MEDS: HYDROCODONE/APAP 5/325 MG TAB PO PRN ×5 (03:53→20:41)
[2019-09-15] MEDS: METOPROLOL TAR 25 MG TAB PO SCH ×2 (05:03→17:03)
[2019-09-15] MEDS: ALBUTEROL INHALER 60 PUFF/8 GM IH PRN ×3 (05:08→18:51)
[2019-09-15] MEDS: LEVOTHYROXINE SOD 0.112 MG TAB PO SCH (06:48)
[2019-09-15] MEDS: ENOXAPARIN 40 MG/0.4 ML SQ SCH (07:04)
[2019-09-15] MEDS: PROMOD 30 ML DOSE PO SCH ×2 (07:06→18:50)
[2019-09-15] MEDS: ENSURE ENLIVE 237 ML CAN PO SCH (07:06)
[2019-09-15] MEDS: POTASSIUM CL SA 10 MEQ TAB PO SCH ×2 (07:57→18:54)
[2019-09-15] MEDS: CYANOCOBALAMIN 1,000 MCG TAB PO SCH (07:58)
[2019-09-15] MEDS: FE SULF/FA/VIT B COMP & C TAB PO SCH (07:58)
[2019-09-15] MEDS: FLUOXETINE 10 MG CAP PO SCH (07:58)
[2019-09-15] MEDS: DOCUSATE NA 100 MG CAP PO SCH ×2 (07:58→18:49)
[2019-09-15] MEDS: FERROUS SULFATE 325 MG TAB PO SCH (07:58)
[2019-09-15] MEDS: CALCIUM CARB 500MG/VIT D 200 IU TAB PO SCH ×3 (07:59→18:52)
[2019-09-15] MEDS: PANTOPRAZOLE 40MG TABLET PO SCH (08:00)
[2019-09-15] MEDS: PREGABALIN 75 MG CAP PO SCH ×2 (08:00→18:50)
[2019-09-15] MEDS: BUSPIRONE HCL 5 MG TABLET PO SCH ×3 (08:00→18:49)
[2019-09-15] MEDS: FUROSEMIDE 20 MG TABLET PO SCH ×2 (08:01→16:04)
[2019-09-15] MEDS: FOLIC ACID 1 MG TABLET PO SCH (08:01)
[2019-09-15] MEDS: MAGNESIUM OXIDE 400 MG TAB PO SCH ×2 (08:02→18:49)
[2019-09-15] MEDS: RISPERIDONE 1 MG TABLET PO SCH ×2 (08:03→18:50)
[2019-09-15] MEDS: TRAMADOL HCL 50 MG TAB PO PRN ×3 (10:59→23:20)
--- NOTE | 2019-09-15 14:35 | FAST ---
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 Vish Crespo M.D. ADMISSION DIAGNOSIS: - Orthopaedic Disorders 08 - Unilateral Hip Fracture (08.11) Left Proximal Femur Fracture. EATING: Not assessed/no information CODE: - ORAL HYGIENE: Not assessed/no information ORAL HYGIENE - STEP 1: Does the patient complete the activity by him/herself with no assistance (physical, verbal/nonverbal cueing, setup/clean-up)? Yes. 1. [id number] ADMISSION PERFORMANCE: Independent CODE: 06 TOILETING HYGIENE: Not assessed/no information CODE: - BATHING: SHOWER/BATHE SELF - STEP 1: Does the patient complete the activity by him/herself with no assistance (physical, verbal/nonverbal cueing, setup/clean-up)? Yes. 1. [id number] ADMISSION PERFORMANCE: Independent CODE: 06 DRESSING - UPPER BODY: DRESSING - UPPER BODY - STEP 1: Does the patient complete the activity by him/herself with no assistance (physical, verbal/nonverbal cueing, setup/clean-up)? Yes. 1. [id number] ADMISSION PERFORMANCE: Independent CODE: 06 DRESSING - LOWER BODY: DRESSING - LOWER BODY - STEP 1: Does the patient complete the activity by him/herself with no assistance (physical, verbal/nonverbal cueing, setup/clean-up)? Yes. 1. [id number] ADMISSION PERFORMANCE: Independent CODE: 06 PUTTING ON/TAKING OFF FOOTWEAR: FOOTWEAR - STEP 1: Does the patient complete the activity by him/herself with no assistance (physical, verbal/nonverbal cueing, setup/clean-up)? Yes. 1. [id number] ADMISSION PERFORMANCE: Independent CODE: 06 DOES THE PATIENT USE A WHEELCHAIR/SCOOTER? CODE: EXPR INDICATE THE TYPE OF WHEELCHAIR/SCOOTER USED: CODE: EXPR INDICATE THE TYPE OF WHEELCHAIR/SCOOTER USED: CODE: EXPR BLADDER AND BOWEL: CODE: EXPR CODE: EXPR SIGNATURE PANEL: The following modified sections: 1. [id number] Admission Performance, 1. OM8613s Admission Performance, 1. RP8838n Admission Performance, 1. GI1528g Admission Performance, 1. GG4284i Admission Performance were [electronically] signed by GAURAV Holguin on SunSep 15 2019 14:34:47 GMT-0600 (Central Standard Time)
[2019-09-15] MEDS: MELOXICAM 7.5 MG TAB PO PRN (18:49)
[2019-09-15] MEDS: DOCUSATE NA/SENNA CONC 1 TAB PO PRN (18:49)
[2019-09-15] MEDS: MELATONIN 5 MG TABLET PO SCH (18:50)
[2019-09-15] MEDS: LURASIDONE PO SCH (18:52)
[2019-09-15 20:23] VITALS: TEMP 97.6
[2019-09-15] MEDS: CYCLOBENZAPRINE 10 MG TAB PO PRN (20:42)
[2019-09-16] MEDS: HYDROCODONE/APAP 5/325 MG TAB PO PRN ×3 (05:08→12:28)
[2019-09-16] MEDS: METOPROLOL TAR 25 MG TAB PO SCH (05:08)
[2019-09-16] MEDS: LEVOTHYROXINE SOD 0.112 MG TAB PO SCH (06:29)
[2019-09-16] MEDS: PREGABALIN 75 MG CAP PO SCH (08:28)
[2019-09-16] MEDS: ENOXAPARIN 40 MG/0.4 ML SQ SCH (08:28)
[2019-09-16] MEDS: CYANOCOBALAMIN 1,000 MCG TAB PO SCH (08:29)
[2019-09-16] MEDS: BUSPIRONE HCL 5 MG TABLET PO SCH ×2 (08:29→14:00)
[2019-09-16] MEDS: POTASSIUM CL SA 10 MEQ TAB PO SCH (08:29)
[2019-09-16] MEDS: CALCIUM CARB 500MG/VIT D 200 IU TAB PO SCH ×2 (08:30→14:00)
[2019-09-16] MEDS: FLUOXETINE 10 MG CAP PO SCH (08:30)
[2019-09-16] MEDS: PANTOPRAZOLE 40MG TABLET PO SCH (08:31)
[2019-09-16] MEDS: DOCUSATE NA 100 MG CAP PO SCH (08:31)
[2019-09-16] MEDS: FOLIC ACID 1 MG TABLET PO SCH (08:31)
[2019-09-16] MEDS: FE SULF/FA/VIT B COMP & C TAB PO SCH (08:31)
[2019-09-16] MEDS: RISPERIDONE 1 MG TABLET PO SCH (08:32)
[2019-09-16] MEDS: MAGNESIUM OXIDE 400 MG TAB PO SCH (08:32)
[2019-09-16] MEDS: FERROUS SULFATE 325 MG TAB PO SCH (08:32)
[2019-09-16] MEDS: ALBUTEROL INHALER 60 PUFF/8 GM IH PRN (08:35)
[2019-09-16] MEDS: PROMOD 30 ML DOSE PO SCH (08:53)
[2019-09-16] MEDS: ENSURE ENLIVE 237 ML CAN PO SCH (08:53)
[2019-09-16] MEDS: FUROSEMIDE 20 MG TABLET PO SCH (09:58)
[2019-09-16 09:59] VITALS: BP 111/68
--- NOTE | 2019-09-16 14:19 | FAST ---
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 Vish Crespo M.D. ADMISSION DIAGNOSIS: - Orthopaedic Disorders 08 - Unilateral Hip Fracture (08.11) Left Proximal Femur Fracture. ROLL LEFT AND RIGHT: ROLL LEFT AND RIGHT - STEP 1: Does the patient complete the activity by him/herself with no assistance (physical, verbal/nonverbal cueing, setup/clean-up)? Yes. 1. [id number] ADMISSION PERFORMANCE: Independent CODE: 06 SIT TO LYING: SIT TO LYING - STEP 1: Does the patient complete the activity by him/herself with no assistance (physical, verbal/nonverbal cueing, setup/clean-up)? Yes. 1. [id number] ADMISSION PERFORMANCE: Independent CODE: 06 LYING TO SITTING: LYING TO SITTING ON SIDE OF BED - STEP 1: Does the patient complete the activity by him/herself with no assistance (physical, verbal/nonverbal cueing, setup/clean-up)? Yes. 1. [id number] ADMISSION PERFORMANCE: Independent CODE: 06 SIT TO STAND: SIT TO STAND - STEP 1: Does the patient complete the activity by him/herself with no assistance (physical, verbal/nonverbal cueing, setup/clean-up)? Yes. 1. [id number] ADMISSION PERFORMANCE: Independent CODE: 06 TRANSFERS: BED, CHAIR: CHAIR/YKC-AO-[id number] TRANSFER - STEP 1: Does the patient complete the activity by him/herself with no assistance (physical, verbal/nonverbal cueing, setup/clean-up)? Yes. 1. [id number] ADMISSION PERFORMANCE: Independent CODE: 06 TRANSFER TOILET: TOILET TRANSFER - STEP 1: Does the patient complete the activity by him/herself with no assistance (physical, verbal/nonverbal cueing, setup/clean-up)? Yes. 1. [id number] ADMISSION PERFORMANCE: Independent CODE: 06 TRANSFERS: CAR: CAR TRANSFER - STEP 1: Does the patient complete the activity by him/herself with no assistance (physical, verbal/nonverbal cueing, setup/clean-up)? Yes. 1. [id number] ADMISSION PERFORMANCE: Independent CODE: 06 WALK 10 FEET: WALK 10 FEET - STEP 1: Does the patient complete the activity by him/herself with no assistance (physical, verbal/nonverbal cueing, setup/clean-up)? Yes. 1. [id number] ADMISSION PERFORMANCE: Independent CODE: 06 WALK 50 FEET: WALK 50 FEET - STEP 1: Does the patient complete the activity by him/herself with no assistance (physical, verbal/nonverbal cueing, setup/clean-up)? Yes. 1. [id number] ADMISSION PERFORMANCE: Independent CODE: 06 WALK 150 FEET: WALK 150 FEET - STEP 1: Does the patient complete the activity by him/herself with no assistance (physical, verbal/nonverbal cueing, setup/clean-up)? Yes. 1. [id number] ADMISSION PERFORMANCE: Independent CODE: 06 WALK 10 FEET UNEVEN: Not assessed/no information CODE: - 1 STEP (CURB): 1 STEP CURB - STEP 1: Does the patient complete the activity by him/herself with no assistance (physical, verbal/nonverbal cueing, setup/clean-up)? Yes. 1. [id number] ADMISSION PERFORMANCE: Independent CODE: 06 4 STEPS: 4 STEPS - STEP 1: Does the patient complete the activity by him/herself with no assistance (physical, verbal/nonverbal cueing, setup/clean-up)? No. 4 STEPS - STEP 2: Does the patient need only setup/clean-up assistance from one helper? Yes. 1. [id number] ADMISSION PERFORMANCE: Setup or clean-up assistance CODE: 05 12 STEPS: 12 STEPS - STEP 1: Does the patient complete the activity by him/herself with no assistance (physical, verbal/nonverbal cueing, setup/clean-up)? No. 12 STEPS - STEP 2: Does the patient need only setup/clean-up assistance from one helper? Yes. 1. [id number] ADMISSION PERFORMANCE: Setup or clean-up assistance CODE: 05 PICKING UP OBJECT: Not assessed/no information CODE: - DOES THE PATIENT USE A WHEELCHAIR/SCOOTER? Q1. DOES THE PATIENT USE A WHEELCHAIR/SCOOTER?: Yes CODE: 1 WHEEL 50 FEET WITH TWO TURNS: WHEEL 50 FEET WITH TWO TURNS - STEP 1: Does the patient complete the activity by him/herself with no assistance (physical, verbal/nonverbal cueing, setup/clean-up)? Yes. 1. [id number] ADMISSION PERFORMANCE: Independent CODE: 06 INDICATE THE TYPE OF WHEELCHAIR/SCOOTER USED: RR1. INDICATE THE TYPE OF WHEELCHAIR/SCOOTER USED.: Manual CODE: 1 WHEEL 150 FEET: WHEEL 150 FEET - STEP 1: Does the patient complete the activity by him/herself with no assistance (physical, verbal/nonverbal cueing, setup/clean-up)? Yes. 1. [id number] ADMISSION PERFORMANCE: Independent CODE: 06 INDICATE THE TYPE OF WHEELCHAIR/SCOOTER USED: SS1. INDICATE THE TYPE OF WHEELCHAIR/SCOOTER USED.: Manual CODE: 1 BLADDER AND BOWEL: CODE: EXPR CODE: EXPR SIGNATURE PANEL: The following modified sections: 1. EA4215L Admission Performance, 1. PE6255D Admission Performance, 1. JR4768T Admission Performance, 1. AO5632A Admission Performance, 1. [id number] Admission Performance, 1. KJ2605S Admission Performance, 1. [id number] Admission Performance, 1. JJ7246Z Admission Performance , 1. GP2186I Admission Performance, 1. PK7166O Admission Performance, 1. QL1418Y Admission Performanc e, 1. [id number] Admission Performance, 1. [id number] Admission Performance, Q1. Does the patient use a whe elchair/scooter?, 1. GD5241P Admission Performance, RR1. Indicate the type of wheelchair/scooter used ., 1. OF1710B Admission Performance, Code, SS1. Indicate the type of wheelchair/scooter used. were [e lectronically] signed by Stacie Chun PTA on SunSep 16 2019 14:18:14 [facility]-0600 (Central Standar d Time)
--- NOTE | 2019-09-16 18:29 | R.PN ---
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 Pt denied any Shortness of Breath. K is mildly elevated. Will decrease K replacement. Transfers and ambulation using a rolling walker 380' is done independently. Up and down 12 steps usin g crutch on the right with left handrail. She will be discharged home today with continued physical t herapy. VITAL SIGNS Temperature: 97.6 F SBP/DBP: 111/68 Pulse: 80 Resp: 16 MEDICATION ALLERGIES: Sodium Chloride Polyethylene glycol PAROXETINE Potassium Chloride Sodium Bicarbonate ENVIRONMENTAL ALLERGIES: None Known - Substance Allergies None Known - Other Allergies None Known NURSING: - Shower allowing shower - Skin care per protocol PRECAUTIONS: - Posterior Hip Precaution No adduction across midline No external rotation No hip flexion >90 degrees No internal rotation No wheel chair propulsion - Weight Bearing Precaution TTWB left LE ACTIVITIES OOB only with supervision THERAPIES: - Dietary and Nutrition Adequate Nutrition. Nutritional Education. Nutritional Supplements. PHYSICAL EXAM - Gen Alert and awake Lying in bed No apparent distress Oriented to: person, time, and place - Skin No skin breakdown. Normacephalic - Eyes No abnormalities - ENMT No abnormalities - Neck No abnormalities - CVS RRR - Chest No abnormalities - Resp Clear to auscultation - Abd Soft - GI Soft Deferred - No abnormalities - Ext Left hip surgical site has good hemostasis. - MSK 4+/5 weakness in left lower extremity - Neuro 4/5 strength left lower extremity. - Psych No abnormalities ASSESSMENT: Pt. is a 64 yo Right-handed white female.On 08/31/2019 she was admitted to [facility] with diagnosis Left Proximal Femur Fracture.Her impairment category is Orthopaedic Disorders 0 8 - Unilateral Hip Fracture (04.06).Pre-morbidly, Pt. was independent/mod-I in Locomotion, Safety Aw areness, Balance, Social Cognition, Transfers Control, Sphincter Control, Self-Care, Communication, a nd Endurance; and she had good Locomotion, Balance, Safety Awareness, Social Cognition, Transfers Con trol, Sphincter Control, Self-Care, Communication, and Endurance.Currently, she has deficits of Locom otion, Balance, Safety Awareness, Transfers Control, Self-Care, Communication, and Endurance.Pt. is n ow referred to [facility] for acute in-patient rehabilitation in order to maxi jax patient's functional independence in activities of daily living, strength, ROM, and mobility.- R ehab Goal Patient has realistic goal of being discharged at assistance level 6-Valdo to reside at Home with Fam luann/Relatives. MDM/PLAN: - Physical Therapy Decreased range of motion - to improve, our physical therapists will perform initial evaluation of p t's status upon admission and devise an individualized program for increasing patient's Range of Mario on. Gait dysfunction - to improve, our physical therapists will perform initial evaluation of pt's statu s upon admission and devise an individualized program for Gait Training, and Wheel Chair mobility Inability to transfer - to improve, our physical therapists will perform initial evaluation of pt's status upon admission and devise an individualized program for Bed mobility Need for home safety evaluation - to improve, our physical therapists will perform initial evaluatio n of pt's status upon admission and devise an individualized program for Home Evaluation Need in caregiver upon discharge - to improve, our physical therapists will perform initial evaluati on of pt's status upon admission and devise an individualized program for Caregiver Training New precaution - to improve, our physical therapists will perform initial evaluation of pt's status upon admission and devise an individualized program for Patient precaution education Poor balance - to improve, our physical therapists will perform initial evaluation of pt's status up on admission and devise an individualized program for Balance Training Poor endurance - to improve, our physical therapists will perform initial evaluation of pt's status upon admission and devise an individualized program for Endurance Training Weakness - to improve, our physical therapists will perform initial evaluation of pt's status upon a dmission and devise an individualized program for Aquatic Therapy, Neuromuscular Reeducation, and Str engthening Achieving independence - to improve, our physical therapists will perform initial evaluation of pt's status upon admission and devise an individualized program for Community Reintegration Activities - Occupational Therapy ADL deficits - to improve, our occupation therapists will perform initial evaluation of pt's status upon admission and devise an individualized program for Bathing, Bed mobility, Community Reintegratio n, Cooking, Dressing, Eating, Fine Motor Skills, Grooming, Homemaking, Kitchen Mobility, Laundry, Pat ient Education, Safety Awareness, Splinting - Positioning, Transfers(Toilet, Tub, Shower), and Wheel Chair Management Need for career coordinator - to improve, our occupation therapists will perform initial evaluation of pt's status upon admission and devise an individualized program for Caregiver Training Weakness - to improve, our occupation therapists will perform initial evaluation of pt's status upon admission and devise an individualized program for Aquatic Therapy, Balance, Endurance, UE ROM, and UE strengthening - Other See attached MAR (Medication Administration Record) - Anterior Hip Precaution No abduction No active extension No adduction across midline No external rotation No hip flexion >90 degrees No internal rotation - Diet - Liquid Texture Continue Regular - Tube Feed Continue N/A - Diet Type Continue Regular - Posterior Hip Precaution No adduction across midline No external rotation No hip flexion >90 degrees No internal rotation No wheel chair propulsion - Weight Bearing Precaution TTWB left LE - Skin care per protocol - Diet - Solid Texture Continue Regular - Shower allowing shower FUNCTIONAL STATUS: UPDATED AT WEEKLY TEAM CONFERENCE - Bladder Same accident frequency: 7-Ind - No accidents in the past 7 days - Bowel Same accident frequency: 7-Ind - No accidents in the past 7 days - Walking Same score based on distance walked: 0(N/A) Same score based on distance walked: 3(>=150ft) - Wheelchair Same score based on distance traveled: 0(N/A) FUNCTIONAL STATUS: - Self-Care A. Eating Ind B. Grooming Ind C. Bathing sup D. Dressing - Upper sup E. Dressing - Lower Alfredo F. Toileting Alfredo - Sphincter Control G. Bladder control Alfredo H. Bowel control Alfredo - Transfers Control I. Bed/Chair/Wheelchair Alfredo J. Toilet Aflredo K. Tub/Shower modA - Locomotion L. Walk/Wheelchair (B) Alfredo M. Stairs modA - Communication N. Comprehension (B) sup O. Expression (B) sup - Social Cognition P. Social Interaction Valdo Q. Problem Solving maxA R. Memory Valdo - Endurance Fair - Balance Fair - Safety Awareness Good QI SCORES: - Self-Care A. Eating 05-Setup or clean-up assistance B. Oral hygiene 05-Setup or clean-up assistance C. Toileting hygiene 04-Supervision or touching assistance E. Shower/bathe self 04-Supervision or touching assistance F. Upper body dressing 04-Supervision or touching assistance G. Lower body dressing 03-Partial/moderate assistance H. Putting on/taking off footwear 02-Substantial/maximal assistance - Mobility A. Roll left and right 04-Supervision or touching assistance B. Sit to lying 04-Supervision or touching assistance C. Lying to sitting on side of bed 04-Supervision or touching assistance D. Sit to stand 04-Supervision or touching assistance E. Chair/[id number] transfer 04-Supervision or touching assistance F. Toilet transfer 04-Supervision or touching assistance G. Car transfer 10-Not attempted due to environmental limitations I. Walk 10 feet 04-Supervision or touching assistance J. Walk 50 feet with two turns 88-Not attempted due to medical condition or safety concerns K. Walk 150 feet 04-Supervision or touching assistance L. Walking 10 feet on uneven surfaces 88-Not attempted due to medical condition or safety concerns M. 1 step (curb) 88-Not attempted due to medical condition or safety concerns N. 4 steps 88-Not attempted due to medical condition or safety concerns O. 12 steps 88-Not attempted due to medical condition or safety concerns P. Picking up object 88-Not attempted due to medical condition or safety concerns R. Wheel 50 feet with two turns 88-Not attempted due to medical condition or safety concerns S. Wheel 150 feet 88-Not attempted due to medical condition or safety concerns - Bladder and Bowel Bladder continence 0-Always continent Bowel continence 0-Always continent - Endurance Fair - Balance Fair - Safety Awareness Fair CURRENT [facility]. 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
== END 2019-09-16 15:00 | disposition home or self-care (01) | DRG 561 ==
LOC: 5TH 17:41
PROVIDERS: ADMIT Psychiatry & Neurology Neurology with Special Qualifications in Child Neurology; ATTEND Psychiatry & Neurology Neurology with Special Qualifications in Child Neurology
DX: S72.002D Fracture of unspecified part of neck of left femur, subsequent encounter for closed fracture with routine healing (principal); J44.9 Chronic obstructive pulmonary disease, unspecified; E03.9 Hypothyroidism, unspecified; I10 Essential (primary) hypertension; F41.9 Anxiety disorder, unspecified; S92.912D Unspecified fracture of left toe(s), subsequent encounter for fracture with routine healing
CPT/HCPCS: 36415; 80048; 81001; 82040; 83735; 84132; 84134; 85025; 87086; 87088; 92523; 97110; 97116; 97127; 97161; 97530; J1650

== ENCOUNTER 2019-10-07 14:12 | Emergency (ER) | payer SELFPAY ==
--- NOTE | 2019-10-07 15:33 | EDPHYS ---
Physician Documentation [facility] [place] Name: Queenie He Age: 64 yrs Sex: Female : 1955 Arrival Date: 10/07/2019 Time: 14:13 Bed Waiting Private MD: MARCK Physician Lenard Rodriguez HPI: 10/07 15:29 This 64 yrs old Female presents to ER via Ambulatory with complaints of omar Staple Removal. 15:29 The patient has jose on the . Previous treatment: Treatment type: The patient's omar original treatment included jose. The patient has not experienced similar symptoms in the past. Historical: - Allergies: 15:23 Golytely; jl7 15:23 Paxil; jl7 15:23 sodium cholride and potassium chloride; jl7 - PMHx: 15:23 Anxiety; COPD; falls; hip fx; Hypertension; Hypothyroidism; Pneumonia; jl7 - PSHx: 15:23 hip fx; jl7 - Immunization history:: Adult Immunizations unknown. - Coronavirus screen:: The patient has NOT traveled to [place] in the past 14 days. Proceed with normal triage process as indicated. - Social history:: Smoking status: Patient reports the use of cigarette tobacco products, smokes one pack cigarettes per day. - Ebola Screening: : No symptoms or risks identified at this time. ROS: 15:30 Constitutional: Negative for fever, chills, and weight loss, Eyes: Negative for injury, omar pain, redness, and discharge, ENT: Negative for injury, pain, and discharge, Neck: Negative for injury, pain, and swelling, Cardiovascular: Negative for chest pain, palpitations, and edema, Respiratory: Negative for shortness of breath, cough, wheezing, and pleuritic chest pain, Abdomen/GI: Negative for abdominal pain, nausea, vomiting, diarrhea, and constipation, Back: Negative for injury and pain, : Negative for injury, bleeding, discharge, and swelling, MS/Extremity: Negative for injury and deformity, Skin: Negative for injury, rash, and discoloration, Neuro: Negative for headache, weakness, numbness, tingling, and seizure, Psych: Negative for depression, anxiety, suicide ideation, homicidal ideation, and hallucinations, Allergy/Immunology: Negative for hives, rash, and allergies. 15:30 Skin: Positive for laceration(s), healing well. Exam: 15:30 Constitutional: This is a well developed, well nourished patient who is awake, alert, omar and in no acute distress. Eyes: Pupils equal round and reactive to light, extra-ocular motions intact. Lids and lashes normal. Conjunctiva and sclera are non-icteric and not injected. Cornea within normal limits. Periorbital areas with no swelling, redness, or edema. ENT: Nares patent. No nasal discharge, no septal abnormalities noted. Tympanic membranes are normal and external auditory canals are clear. Oropharynx with no redness, swelling, or masses, exudates, or evidence of obstruction, uvula midline. Mucous membranes moist. Neck: Trachea midline, no thyromegaly or masses palpated, and no cervical lymphadenopathy. Supple, full range of motion without nuchal rigidity, or vertebral point tenderness. No Meningismus. Chest/axilla: Normal chest wall appearance and motion. Nontender with no deformity. No lesions are appreciated. Cardiovascular: Regular rate and rhythm with a normal S1 and S2. No gallops, murmurs, or rubs. Normal PMI, no JVD. No pulse deficits. Respiratory: Lungs have equal breath sounds bilaterally, clear to auscultation and percussion. No rales, rhonchi or wheezes noted. No increased work of breathing, no retractions or nasal flaring. Abdomen/GI: Soft, non-tender, with normal bowel sounds. No distension or tympany. No guarding or rebound. No evidence of tenderness throughout. Back: No spinal tenderness. No costovertebral tenderness. Full range of motion. Skin: Warm, dry with normal turgor. Normal color with no rashes, no lesions, and no evidence of cellulitis. MS/ Extremity: Pulses equal, no cyanosis. Neurovascular intact. Full, normal range of motion. Neuro: Awake and alert, GCS 15, oriented to person, place, time, and situation. Cranial nerves II-XII grossly intact. Motor strength 5/5 in all extremities. Sensory grossly intact. Cerebellar exam normal. Normal gait. Psych: Awake, alert, with orientation to person, place and time. Behavior, mood, and affect are within normal limits. 15:30 Head/face: Noted is healing scalp wound. Vital Signs: 15:23 BP 156 / 82; Pulse 82; Resp 17 S; Temp 98.2(O); Pulse Ox 93% on R/A; Pain 0/10; jl7 MDM: 15:[address] [facility] 10/07 15:29 Order name: Staple Remover Setup [facility] Administered Medications: No medications were administered Disposition: 10/07/19 15:32 Discharged to Home. Impression: Encounter for removal of sutures - staple removal. - Condition is Stable. - Discharge Instructions: Stitches, Jose, or Adhesive Wound Closure, Suture Removal, Care After. - Medication Reconciliation Form, Thank You Letter, Antibiotic Education, Prescription Opioid Use form. - Follow up: Private Physician; When: 5 - 6 days; Reason: Recheck today's complaints, Continuance of care, Re-evaluation by your physician. - Problem is new. - Symptoms have improved. Signatures: Lenard Rodriguez MD MD cha Smirch, Shelby, RN RN ss Dilan Leyva RN RN jl7 Corrections: (The following items were deleted from the chart) 15:58 15:32 10/07/2019 15:32 Discharged to Home. Impression: Encounter for removal of sutures ss - staple removal. Condition is Stable. Forms are Medication Reconciliation Form, Thank You Letter, Antibiotic Education, Prescription Opioid Use. Follow up: Private Physician; When: 5 - 6 days; Reason: Recheck today's complaints, Continuance of care, Re-evaluation by your physician. Problem is new. Symptoms have improved. omar
--- NOTE | 2019-10-07 15:33 | ER ---
Nurse's Notes [facility] Name: Queenie He Age: 64 yrs Sex: Female : 1955 Arrival Date: 10/07/2019 Time: 14:13 Bed Waiting Private MD: Diagnosis: Encounter for removal of sutures-staple removal Presentation: 10/07 15:20 Presenting complaint: Patient states: Jose to occipital area placed 6 days ago, jl7 denies pain. Transition of care: patient was not received from another setting of care. Onset of symptoms was October 01, 2019. Risk Assessment: Do you want to hurt yourself or someone else? Patient reports no desire to harm self or others. Initial Sepsis Screen: Does the patient meet any 2 criteria? No. Patient's initial sepsis screen is negative. Does the patient have a suspected source of infection? No. Patient's initial sepsis screen is negative. Care prior to arrival: None. 15:20 Method Of Arrival: Ambulatory [facility] 15:20 Acuity: OLIVER 5 jl7 Triage Assessment: 15:23 General: Appears in no apparent distress. comfortable, Behavior is calm, cooperative, jl7 appropriate for age. Pain: Denies pain. Historical: - Allergies: 15:23 Golytely; jl7 15:23 Paxil; jl7 15:23 sodium cholride and potassium chloride; jl7 - PMHx: 15:23 Anxiety; COPD; falls; hip fx; Hypertension; Hypothyroidism; Pneumonia; jl7 - PSHx: 15:23 hip fx; jl7 - Immunization history:: Adult Immunizations unknown. - Coronavirus screen:: The patient has NOT traveled to [place] in the past 14 days. Proceed with normal triage process as indicated. - Social history:: Smoking status: Patient reports the use of cigarette tobacco products, smokes one pack cigarettes per day. - Ebola Screening: : No symptoms or risks identified at this time. Vital Signs: 15:23 BP 156 / 82; Pulse 82; Resp 17 S; Temp 98.2(O); Pulse Ox 93% on R/A; Pain 0/10; jl7 ED Course: 14:13 Patient arrived in ED. as 15:22 Triage completed. jl7 15:23 Arm band placed on right wrist. jl7 15:29 Leyva, Jahala, RN is Primary Nurse. jl7 15:29 Lenard Rodriguez MD is Attending Physician. omar 15:57 Patient did not have IV access during this emergency room visit. ss Administered Medications: No medications were administered Outcome: 15:30 Discharged to home ambulatory. ss 15:30 Condition: good 15:30 Discharge instructions given to patient, Instructed on discharge instructions, follow up and referral plans. Demonstrated understanding of instructions, follow-up care. 15:32 Discharge ordered by . [facility] 15:58 Patient left the ED. ss Signatures: Lenard Rodriguez MD MD cha Martinez, Amelia as Smirch, Shelby, RN RN Dilan Leyva RN RN jl7
[2019-10-09 08:10] VITALS: BP 156/82; TEMP 98.2; O2SAT 93
== END 2019-10-07 15:58 | disposition home or self-care (01) ==
LOC: ER 14:12
DX: Z48.02 Encounter for removal of sutures (principal); Z88.8 Allergy status to other drugs, medicaments and biological substances; F17.210 Nicotine dependence, cigarettes, uncomplicated
CPT/HCPCS: 99281

== ENCOUNTER 2020-03-10 14:29 | Emergency (ER) | payer OTHER, SELFPAY ==
[2020-03-10 15:36] LABS: BUN Blood Urea Nitrogen 4 mg/dL (7-18); Bicarbonate 28 mmol/L (21-32); Glucose Level 103 mg/dL (74-106); Potassium 4.7 mmol/L (3.5-5.1); Sodium Level 126 mmol/L (136-145)
[2020-03-10 15:38] LABS: Magnesium 1.4 mg/dL (1.8-2.4)
[2020-03-10] MEDS ORDERED: NA CHLORIDE 0.9% 500 ML ONE (16:05)
[2020-03-10] MEDS ORDERED: Magnesium Sulfate 2gm IVPB 2 G/50 ML BAG IV ONE (16:06)
--- NOTE | 2020-03-10 17:09 | ER ---
Nurse's Notes [facility] Name: Queenie He Age: 64 yrs Sex: Female : 1955 Arrival Date: 03/10/2020 Time: 14:37 Bed 18 Private MD: Diagnosis: Hypomagnesemia;Hypo-osmolality and hyponatremia Presentation: 03/10 14:40 Chief complaint: Patient states: Blood work done yesterday at the [place], doctor called ca1 today and said K, Na, Cl are low. Thyroid levels are low. No complaints at this time. Coronavirus screen: Proceed with normal triage. Patient denies a cough. Patient denies shortness of breath or difficulty breathing. Patient denies measured and/or subjective temperature greater than 100.4F prior to today's visit. Patient denies travel on a cruise ship or to a country the [facility] currently lists as an affected area. Patient denies contact with known and/or suspected case of COVID-19. Ebola Screen: Patient negative for fever greater than or equal to 101.5 degrees Fahrenheit, and additional compatible Ebola Virus Disease symptoms Patient denies exposure to infectious person. Patient denies travel to an Ebola-affected area in the 21 days before illness onset. No symptoms or risks identified at this time. Initial Sepsis Screen: Does the patient meet any 2 criteria? No. Patient's initial sepsis screen is negative. Does the patient have a suspected source of infection? No. Patient's initial sepsis screen is negative. Risk Assessment: Do you want to hurt yourself or someone else? Patient reports no desire to harm self or others. Onset of symptoms was March 10, 2020. 14:40 Method Of Arrival: Ambulatory ca1 14:40 Acuity: OLIVER 3 ca1 Triage Assessment: 14:47 General: Appears in no apparent distress. comfortable. Pain: Denies pain. ls4 Cardiovascular: Denies chest pain. Respiratory: Airway is patent Respiratory effort is even, unlabored, Respiratory pattern is regular. Respiratory: Denies cough. Derm: Skin is pink, warm \T\ dry. 16:37 General: Behavior is. ls4 Historical: - Allergies: 14:43 Golytely; ca1 14:43 Paxil; ca1 14:43 sodium cholride and potassium chloride; ca1 - PMHx: 14:43 Anxiety; COPD; falls; hip fx; Hypertension; Hypothyroidism; Pneumonia; ca1 - PSHx: 14:43 hip fx; ca1 - Immunization history:: Adult Immunizations up to date. - Social history:: Smoking status: Patient reports the use of cigarette tobacco products, smokes two packs cigarettes per day. - Family history:: not pertinent. - Hospitalizations: : No recent hospitalization is reported. Screenin:26 Abuse screen: Denies threats or abuse. Denies injuries from another. Nutritional ls4 screening: No deficits noted. Tuberculosis screening: No symptoms or risk factors identified. Fall Risk None identified. Assessment: 16:25 Reassessment: Patient appears in no apparent distress at this time. Patient and/or ls4 family updated on plan of care and expected duration. Pain level reassessed. Patient is alert, oriented x 3, equal unlabored respirations, skin warm/dry/pink. Vital Signs: 14:40 BP 142 / 70; Pulse 104; Resp 18 S; Temp 97.8(TE); Pulse Ox 99% on R/A; Weight 47.17 kg ca1 (R); Height 5 ft. 2 in. (157.48 cm) (R); 16:26 BP 153 / 100; Pulse 81; Resp 16; Temp 98.9(O); Pulse Ox 100% on R/A; Pain 0/10; ls4 17:22 BP 138 / 89; Pulse 78; Resp 18; Temp 98.4; Pulse Ox 99% on R/A; Pain 0/10; ls4 14:40 Body Mass Index 19.02 (47.17 kg, 157.48 cm) ca1 ED Course: 14:37 Patient arrived in ED. bp1 14:42 Triage completed. ca1 14:43 Arm band placed on right wrist. ca1 14:46 Grover Sales MD is Attending Physician. rn 14:47 Cyn Huynh, MORRO is Primary Nurse. ls4 14:53 EKG done, by space technologist. reviewed by Grover Sales MD. at1 15:20 Inserted saline lock: 22 gauge in left antecubital area, using aseptic technique. Blood ls4 collected. 15:20 Initial lab(s) drawn, by nc, sent to lab. ls4 16:26 Patient has correct armband on for positive identification. Bed in low position. Call ls4 light in reach. Side rails up X 1. vehicle monitor technician on. Pulse ox on. NIBP on. Warm blanket given. 16:27 No provider procedures requiring assistance completed. ls4 17:17 IV discontinued, intact, bleeding controlled, No redness/swelling at site. Pressure ls4 dressing applied. Administered Medications: 16:01 Drug: NS 0.9% 500 ml Route: IV; Rate: bolus; Site: right antecubital; ls4 17:30 Follow up: IV Status: Completed infusion; IV Intake: 500ml ls4 16:01 Drug: Magnesium Sulfate 2 grams Route: IVPB; Infused Over: 2 hrs; Site: right ls4 antecubital; 17:30 Follow up: IV Status: Completed infusion; IV Intake: 50ml ls4 Intake: 17:30 IV: 500ml; Total: 500ml. ls4 Outcome: 17:08 Discharge ordered by . rn 17:23 Discharged to home ambulatory. ls4 17:23 Condition: good 17:23 Discharge instructions given to patient, Instructed on discharge instructions, follow up and referral plans. Demonstrated understanding of instructions, follow-up care. 17:24 Patient left the ED. ls4 Signatures: Grover Sales MD MD rn Lorna Pisano, general matcher EKG Tat1 Cyn Huynh RN RN ls4 Xiomara Lara RN RN ca1 Cat Augustin Corrections: (The following items were deleted from the chart) 22:33 22:32 IV Status: Completed infusion; IV Intake: 500ml ls4 ls4
--- NOTE | 2020-03-10 17:09 | EDPHYS ---
Physician Documentation [facility] Name: Queenie He Age: 64 yrs Sex: Female : 1955 Arrival Date: 03/10/2020 Time: 14:37 Bed 18 Private MD: ED Physician Grover Sales HPI: 03/10 15:57 This 64 yrs old Female presents to ER via Ambulatory with complaints of Dr. rn sent,labs to low. 15:57 Reports sent to ER for low electrolytes, reports chronically low rn potassium/sodium/chloride, is on diuretics, reports feels a little weak, but no focal weakness. Told thyroid studies off too, but pcp told her needs to decrease synthroid dose for that. . Onset: The symptoms/episode began/occurred at an unknown time. Severity of symptoms: At their worst the symptoms were mild in the emergency department the symptoms are unchanged. The patient has experienced similar episodes in the past. 15:57 The patient has been recently seen by a physician:. rn Historical: - Allergies: 14:43 Golytely; ca1 14:43 Paxil; ca1 14:43 sodium cholride and potassium chloride; ca1 - PMHx: 14:43 Anxiety; COPD; falls; hip fx; Hypertension; Hypothyroidism; Pneumonia; ca1 - PSHx: 14:43 hip fx; ca1 - Immunization history:: Adult Immunizations up to date. - Social history:: Smoking status: Patient reports the use of cigarette tobacco products, smokes two packs cigarettes per day. - Family history:: not pertinent. - Hospitalizations: : No recent hospitalization is reported. ROS: 15:57 Constitutional: Negative for fever, chills, and weight loss, Eyes: Negative for injury, rn pain, redness, and discharge, Neck: Negative for injury, pain, and swelling, Cardiovascular: Negative for chest pain, palpitations, and edema, Respiratory: Negative for shortness of breath, cough, wheezing, and pleuritic chest pain, Abdomen/GI: Negative for abdominal pain, nausea, vomiting, diarrhea, and constipation, MS/Extremity: Negative for injury and deformity, Skin: Negative for injury, rash, and discoloration, Neuro: Negative for headache, numbness, tingling, and seizure. Exam: 15:57 Constitutional: This is a well developed, well nourished patient who is awake, alert, rn and in no acute distress. ENT: dry MM Cardiovascular: Tachycardic, regular Respiratory: Speaking full sentences. No increased work of breathing, no retractions or nasal flaring. Abdomen/GI: soft, non-tender Skin: Warm, dry MS/ Extremity: Pulses equal, no cyanosis. Neurovascular intact. Full, normal range of motion. Equal circumference. Neuro: Awake and alert, GCS 15, oriented to person, place, time, and situation. Cranial nerves II-XII grossly intact. Motor strength 5/5 in all extremities. Sensory grossly intact. Cerebellar exam normal. Normal gait. Vital Signs: 14:40 BP 142 / 70; Pulse 104; Resp 18 S; Temp 97.8(TE); Pulse Ox 99% on R/A; Weight 47.17 kg ca1 (R); Height 5 ft. 2 in. (157.48 cm) (R); 16:26 BP 153 / 100; Pulse 81; Resp 16; Temp 98.9(O); Pulse Ox 100% on R/A; Pain 0/10; ls4 17:22 BP 138 / 89; Pulse 78; Resp 18; Temp 98.4; Pulse Ox 99% on R/A; Pain 0/10; ls4 14:40 Body Mass Index 19.02 (47.17 kg, 157.48 cm) ca1 MDM: 14:49 Patient medically screened. rn 17:08 Differential Diagnosis electrolyte disorder. Data reviewed: vital signs, nurses notes, software engineer kernel test result(s), and as a result, I will discharge patient. Counseling: I had a detailed discussion with the patient and/or guardian regarding: the historical points, exam findings, and any diagnostic results supporting the discharge/admit diagnosis, lab results, the need for outpatient follow up, to return to the emergency department if symptoms worsen or persist or if there are any questions or concerns that arise at home. Special discussion: I discussed with the patient/guardian in detail that at this point there is no indication for admission to the hospital. It is understood, however, that if the symptoms persist or worsen the patient needs to return immediately for re-evaluation. 03/10 14:54 Order name: Basic Metabolic Panel; Complete Time: 15:39 rn 03/10 14:54 Order name: Magnesium; Complete Time: 15:39 rn 03/10 14:54 Order name: IV Start; Complete Time: 16:01 rn Administered Medications: 16:01 Drug: NS 0.9% 500 ml Route: IV; Rate: bolus; Site: right antecubital; ls4 17:30 Follow up: IV Status: Completed infusion; IV Intake: 500ml ls4 16:01 Drug: Magnesium Sulfate 2 grams Route: IVPB; Infused Over: 2 hrs; Site: right ls4 antecubital; 17:30 Follow up: IV Status: Completed infusion; IV Intake: 50ml ls4 Disposition: 03/10/20 17:08 Discharged to Home. Impression: Hypomagnesemia, Hypo-osmolality and hyponatremia. - Condition is Stable. - Discharge Instructions: Hypomagnesemia, Hyponatremia. - Medication Reconciliation Form, Thank You Letter, Antibiotic Education, Prescription Opioid Use form. - Follow up: Private Physician; When: As needed; Reason: Recheck today's complaints, Re-evaluation by your physician. - Problem is new. - Symptoms have improved. Signatures: Dispatcher [employer] EDMS Grover Sales MD MD rn Stewart, Lisa, RN RN ls4 Xiomara Lara RN RN [facility] Corrections: (The following items were deleted from the chart) 17:24 17:08 03/10/2020 17:08 Discharged to Home. Impression: Hypomagnesemia; Hypo-osmolality ls4 and hyponatremia. Condition is Stable. Forms are Medication Reconciliation Form, Thank You Letter, Antibiotic Education, Prescription Opioid Use. Follow up: Private Physician; When: As needed; Reason: Recheck today's complaints, Re-evaluation by your physician. Problem is new. Symptoms have improved. rn
[2020-03-10 19:10] VITALS: BP 138/89; TEMP 98.4; O2SAT 99
== END 2020-03-10 17:24 | disposition home or self-care (01) ==
LOC: ER 14:29
DX: E87.1 Hypo-osmolality and hyponatremia (principal); E83.42 Hypomagnesemia; I10 Essential (primary) hypertension; F17.210 Nicotine dependence, cigarettes, uncomplicated; Z88.8 Allergy status to other drugs, medicaments and biological substances; Z91.048 Other nonmedicinal substance allergy status
CPT/HCPCS: 96365; 93005; 80048; 36415; 83735; 99284; J3475; J7040

== ENCOUNTER 2020-04-18 15:07 | Emergency (ER) | payer OTHER, SELFPAY ==
[2020-04-18] MEDS ORDERED: MAGNESIUM SULFATE 1 gm IVPB 1 GM/100 ML BAG IV ONE (16:10)
[2020-04-18] MEDS ORDERED: NA CHLORIDE 0.9% 500 ML ONE (16:10)
[2020-04-18 16:16] LABS: Urine Blood NEGATIVE (NEG); Urine Glucose NEGATIVE (NEG); Urine Protein NEGATIVE (NEG); Urine Specific Gravity 1.015 (1.005-1.030); Urine pH 6.5 (5.0-7.0)
[2020-04-18 17:36] LABS: Albumin 3.4 g/dL (3.4-5.0); Bilirubin Total 0.3 mg/dL (0.2-1.0); Potassium 4.7 mmol/L (3.5-5.1); Protein, Total 7.4 g/dL (6.4-8.2)
--- NOTE | 2020-04-18 17:44 | EDPHYS ---
Physician Documentation [facility] Name: Queenie He Age: 64 yrs Sex: Female : 1955 Arrival Date: 04/18/2020 Time: 15:09 Bed 14 Private MD: ED Physician Lenard Rodriguez HPI: 04/18 15:41 This 64 yrs old Female presents to ER via Ambulatory with complaints of jmm Abnormal Lab Results. 15:41 This is a 64 year old female with a history of COPD, HTN, hypothyroidism that presents jmm to the ED with complaints of fatigue. Patient was advised by PCP to go to the ED due to low sodium levels. . Onset: The symptoms/episode began/occurred at an unknown time. The patient has experienced a previous episode. Historical: - Allergies: 15:22 Paxil; jl7 15:22 Golytely; jl7 - Home Meds: 15:22 levothyroxine oral [Active]; Albuterol Inhl [Active]; Latuda oral oral [Active]; jl7 Symbicort inhalation inhalation [Active]; Flexeril Oral [Active]; meloxicam oral oral [Active]; Potassium Chloride Oral [Active]; BuSpar Oral [Active]; Vitamin B-12 Oral [Active]; 15:23 Furosemide Oral [Active]; jl7 - PMHx: 15:22 Anxiety; COPD; falls; hip fx; Hypertension; Hypothyroidism; Pneumonia; jl7 - PSHx: 15:22 hip fx; jl7 - Immunization history:: Adult Immunizations up to date. - Social history:: Smoking status: Patient reports the use of cigarette tobacco products, smokes one pack cigarettes per day. ROS: 15:41 Cardiovascular: Negative for chest pain, palpitations, and edema, Respiratory: Negative jmm for shortness of breath, cough, wheezing, and pleuritic chest pain. 15:41 Constitutional: Positive for fatigue. 15:41 All other systems are negative. Exam: 15:41 Constitutional: This is a well developed, well nourished patient who is awake, alert, jmm and in no acute distress. Head/Face: atraumatic. Eyes: EOMI, no conjunctival erythema appreciated ENT: Moist Mucus Membranes Neck: Trachea midline, Supple Chest/axilla: Normal chest wall appearance and motion. Cardiovascular: Regular rate and rhythm. No edema appreciated Respiratory: Normal respirations, no respiratory distress appreciated Abdomen/GI: Non distended, soft Back: Normal ROM Skin: General appearance color normal MS/ Extremity: Moves all extremities, no obvious deformities appreciated, no edema noted to the lower extremities Neuro: Awake and alert, normal gait Psych: Behavior is normal, Mood is normal, Patient is cooperative and pleasant Vital Signs: 15:14 BP 143 / 103; Pulse 107; Resp 19; Temp 98.3; Pulse Ox 99% ; Weight 46.27 kg; Height 5 7 ft. 2 in. (157.48 cm); Pain 0/10; 15:56 BP 131 / 73; Pulse 96; Resp 15; Pulse Ox 98% on R/A; jd3 15:14 Body Mass Index 18.66 (46.27 kg, 157.48 cm) jl7 MDM: 15:27 Patient medically screened. [facility] 17:43 Data reviewed: vital signs, nurses notes. Counseling: I had a detailed discussion with stacie the patient and/or guardian regarding: the historical points, exam findings, and any diagnostic results supporting the discharge/admit diagnosis, lab results, the need for outpatient follow up, to return to the emergency department if symptoms worsen or persist or if there are any questions or concerns that arise at home. ED course: Patient states feeling much better. Advised to follow up with pcp and otherwise given strict return precautions. Patient understood and agrees with the plan of care. . 04/18 15:27 Order name: CMP; Complete Time: 17:43 [facility] 04/18 16:09 Order name: Urine Dipstick--Ancillary (enter results); Complete Time: 16:16 [place] 04/18 15:27 Order name: Urine Dipstick-Ancillary (obtain specimen); Complete Time: 15:57 [facility] Administered Medications: 16:09 Drug: Magnesium Sulfate 1 grams Route: IVPB; Infused Over: 1 hrs; Site: left forearm; jd3 18:07 Follow up: Response: No adverse reaction; IV Status: Completed infusion jd3 16:10 Drug: NS 0.9% 500 ml Route: IV; Rate: bolus; Site: left forearm; jd3 17:00 Follow up: Response: No adverse reaction; IV Status: Completed infusion; IV Intake: jd3 500ml Disposition: 04/19 12:04 Co-signature as Attending Physician, Lenard Rodriguez MD I agree with the assessment and omar plan of care. Disposition: 04/18/20 17:44 Discharged to Home. Impression: Malaise and fatigue. - Condition is Stable. - Discharge Instructions: Fatigue. - Medication Reconciliation Form, Thank You Letter, Antibiotic Education, Prescription Opioid Use form. - Follow up: Private Physician; When: 2 - 3 days; Reason: Recheck today's complaints, Continuance of care, Re-evaluation by your physician. Signatures: Dispatcher [employer] EDLenard Linares MD MD cha Mickail, Joel, PA PA jmm Leal, Jahala RN RN jl7 Lokesh Ramos RN RN jd3 Corrections: (The following items were deleted from the chart) 04/18 18:07 17:44 04/18/2020 17:44 Discharged to Home. Impression: Malaise and fatigue. Condition jd3 is Stable. Forms are Medication Reconciliation Form, Thank You Letter, Antibiotic Education, Prescription Opioid Use. Follow up: Private Physician; When: 2 - 3 days; Reason: Recheck today's complaints, Continuance of care, Re-evaluation by your physician. stacie
--- NOTE | 2020-04-18 17:44 | ER ---
Nurse's Notes [facility] Name: Queenie He Age: 64 yrs Sex: Female : 1955 Arrival Date: 04/18/2020 Time: 15:09 Bed 14 Private MD: Diagnosis: Malaise and fatigue Presentation: 04/18 15:14 Chief complaint: Patient states: "[facility] because my jl7 sodium is extremely low and my thyroid is way off." Pt denies JUNIOR, nausea; reports "I don't feel right, just don't feel good.". Coronavirus screen: Client denies travel out of the [place] in the last 14 days. At this time, the client does not indicate any symptoms associated with coronavirus-19. Ebola Screen: No symptoms or risks identified at this time. Initial Sepsis Screen: Does the patient meet any 2 criteria? No. Patient's initial sepsis screen is negative. Does the patient have a suspected source of infection? No. Patient's initial sepsis screen is negative. Risk Assessment: Do you want to hurt yourself or someone else? Patient reports no desire to harm self or others. Onset of symptoms is unknown. Care prior to arrival: None. 15:14 Method Of Arrival: Ambulatory [facility] 15:14 Acuity: OLIVER 2 jl7 Triage Assessment: 15:23 General: Appears in no apparent distress. uncomfortable, Behavior is calm, cooperative, jl7 appropriate for age. Pain: Denies pain. Neuro: Level of Consciousness is awake, alert, obeys commands, Oriented to person, place, time, situation. Cardiovascular: Patient's skin is warm and dry. Respiratory: Airway is patent Respiratory effort is even, unlabored, Respiratory pattern is regular, symmetrical. Derm: Skin is pink, warm \\T\\ dry. Historical: - Allergies: 15:22 Paxil; jl7 15:22 Golytely; jl7 - Home Meds: 15:22 levothyroxine oral [Active]; Albuterol Inhl [Active]; Latuda oral oral [Active]; jl7 Symbicort inhalation inhalation [Active]; Flexeril Oral [Active]; meloxicam oral oral [Active]; Potassium Chloride Oral [Active]; BuSpar Oral [Active]; Vitamin B-12 Oral [Active]; 15:23 Furosemide Oral [Active]; jl7 - PMHx: 15:22 Anxiety; COPD; falls; hip fx; Hypertension; Hypothyroidism; Pneumonia; jl7 - PSHx: 15:22 hip fx; jl7 - Immunization history:: Adult Immunizations up to date. - Social history:: Smoking status: Patient reports the use of cigarette tobacco products, smokes one pack cigarettes per day. Screenin:05 Abuse screen: Denies threats or abuse. Nutritional screening: No deficits noted. jd3 Tuberculosis screening: No symptoms or risk factors identified. Fall Risk Ambulatory Aid- None/Bed Rest/Nurse Assist (0 pts). Gait- Normal/Bed Rest/Wheelchair (0 pts) Mental Status- Oriented to own ability (0 pts). Total Meyers Fall Scale indicates No Risk (0-24 pts). Assessment: 15:53 General: Appears in no apparent distress. Behavior is calm, cooperative, appropriate jd3 for age, Reports fatigue for 2-3 days. Pain: Denies pain. Neuro: Level of Consciousness is awake, alert, obeys commands, Oriented to person, place, time, situation, Reports headache. Cardiovascular: Capillary refill < 3 seconds Patient's skin is warm and dry. Respiratory: Airway is patent Respiratory effort is even, unlabored, Respiratory pattern is regular, symmetrical. GI: No signs and/or symptoms were reported involving the gastrointestinal system. : No signs and/or symptoms were reported regarding the genitourinary system. EENT: No signs and/or symptoms were reported regarding the EENT system. Derm: No signs and/or symptoms reported regarding the dermatologic system. Musculoskeletal: Circulation, motion, and sensation intact. Range of motion: intact in all extremities. 17:16 Reassessment: Patient appears in no apparent distress at this time. Patient and/or jd3 family updated on plan of care and expected duration. Pain level reassessed. Patient is alert, oriented x 3, equal unlabored respirations, skin warm/dry/pink. Patient states feeling better. 18:04 Reassessment: Patient appears in no apparent distress at this time. Patient and/or jd3 family updated on plan of care and expected duration. Pain level reassessed. Patient is alert, oriented x 3, equal unlabored respirations, skin warm/dry/pink. Patient states feeling better. Vital Signs: 15:14 BP 143 / 103; Pulse 107; Resp 19; Temp 98.3; Pulse Ox 99% ; Weight 46.27 kg; Height 5 jl7 ft. 2 in. (157.48 cm); Pain 0/10; 15:56 BP 131 / 73; Pulse 96; Resp 15; Pulse Ox 98% on R/A; jd3 15:14 Body Mass Index 18.66 (46.27 kg, 157.48 cm) jl7 ED Course: 15:09 Patient arrived in ED. ag5 15:18 Triage completed. jl7 15:23 Arm band placed on right wrist. jl7 15:26 Drew Andersen PA is PHCP. [facility] 15:27 Lenard Rodriguez MD is Attending Physician. [facility] 15:36 Lokesh Ramos, MORRO is Primary Nurse. jd3 15:53 Inserted saline lock: 22 gauge in left forearm, using aseptic technique. Blood jd3 collected. line placed by Breanne HOOKER. 18:05 Patient has correct armband on for positive identification. Bed in low position. Call jd3 light in reach. Side rails up X 1. Pulse ox on. NIBP on. 18:05 No provider procedures requiring assistance completed. IV discontinued, intact, jd3 bleeding controlled, No redness/swelling at site. Pressure dressing applied. Administered Medications: 16:09 Drug: Magnesium Sulfate 1 grams Route: IVPB; Infused Over: 1 hrs; Site: left forearm; jd3 18:07 Follow up: Response: No adverse reaction; IV Status: Completed infusion jd3 16:10 Drug: NS 0.9% 500 ml Route: IV; Rate: bolus; Site: left forearm; jd3 17:00 Follow up: Response: No adverse reaction; IV Status: Completed infusion; IV Intake: jd3 500ml Intake: 17:00 IV: 500ml; Total: 500ml. jd3 Outcome: 17:44 Discharge ordered by . [facility] 18:06 Discharged to home ambulatory, with family. jd3 18:06 Condition: stable 18:06 Discharge instructions given to patient, Instructed on discharge instructions, follow up and referral plans. Demonstrated understanding of instructions, follow-up care. 18:07 Patient left the ED. jd3 Signatures: Drew Andersen PA PA jmm Leal, Jahala, RN RN jlLokesh Pyle, RN RN jd3 Yareli Rodriguez ag5
== END 2020-04-18 18:07 | disposition home or self-care (01) ==
LOC: ER 15:07
DX: R53.81 Other malaise (principal); R53.83 Other fatigue; I10 Essential (primary) hypertension; F17.210 Nicotine dependence, cigarettes, uncomplicated; F41.9 Anxiety disorder, unspecified; E03.9 Hypothyroidism, unspecified; J44.9 Chronic obstructive pulmonary disease, unspecified; Z88.8 Allergy status to other drugs, medicaments and biological substances
CPT/HCPCS: 36415; 81003; 80053; J3475; J7040; 96365; 96366; 99284